=== PATIENT | male | born 1955 | race Caucasian/White ===

== ENCOUNTER 2021-12-19 00:43 | Inpatient (IN) | payer MEDICARE, SELFPAY ==
--- NOTE | 2021-12-18 18:12 | PCM.HOSP.N ---
Hospitalist Note HOSPITALIST TRANSFER FROM [facility] TO [facility] SUMMARY FOR INCOMING PHYSICIAN HANDOFF: The patient is a 66 y/o M w/ PMHx: Anxiety and Depression, Chronic CHF, CKD stage III unclear subtype, Obesity, Hx VTEs most recently noted RLE DVT 2016 (Distal GSV thrombosis on L soleal vein DVT R) on chronic anticoagulation with additionally Hx acute RLE ischemic limb secondary to acute arterial occlusion, Tobacco use, COPD, Hx Adenocarcinoma of the Lung s/p radiation, HTN, HLD, Diabetes mellitus type II, CAD s/p CABG x 3 10/2016 and PCI reportedly 2013, 03/01/20 and again recently 08/20/21 severe coronary disease predominantly involving left main, LAD and circumflex, successful CHRISTINA mid LMCA and IVUS guidance subtotal occlusion mid LAD after takeoff of D1, chronically occluded ostial LCx in-stent with [id number] collaterals with recommendation for continued aggressive risk factor modification and cardiac rehab, initiation Effient with standing dose 10 mg p.o. daily for at least 12 months and continue aspirin 81 mg p.o. daily, PVD, PAOD s/p prior bilateral iliac artery stenting, RLE revascularization in the infrainguinal segment, multiple left lower extremity interventions including rotational atherectomy for subacute thrombosis, angioplasty and stenting L SFA and popliteal artery, Viabahn stenting L SFA and P1, P2 segments of the popliteal artery along with CHRISTINA tibioperoneal trunk, proximal posterior tibial artery, and balloon angioplasty anterior tibial artery, surgical revascularization includes less than distal popliteal artery bypass with failure of the graft, repeat intervention including angioplasty and Viabahn stenting with last procedure was done in July of 2021 until current presentation with recent evaluation per his Vascular Team with admission at [facility] w/ initial surgery evaluation on 12/16/21 with onset within the last ~ 1 week severe recurrent BL LE pain prompting evaluation w/ angiographically premature failure of extensive revascularization of the left lower extremity with attempted intervention with noted rotarex device usage to make multiple runs down the left leg and into the popliteal segment with no angiographic evidence of improvement, balloon angioplasty performed along the entire length of the superficial femoral artery and popliteal artery and re-stented the tibioperoneal trunk which had a fractured stent and proximal posterior tibial artery using a 3 mm x 38 mm Xience Skypoint drug-eluting stent and then a 3 mm x 23 mm Xience Skypoint drug-eluting stent in tandem w/ intra-arterial tPA into the posterior tibial artery however reassessment of SFA segment which had been previously opened with a balloon was now occluded prompting peripheral EKOS catheter along the length of the SFA and popliteal with initiation of IV TPA was started at 0.5 mg an hour and heparin at a total of 500 units an hour through the sheath. Patient was then taken back to the OR on 12/18/21 with continued LSFA occlusion evidence with catheter in the popliteal artery artery, TPT, and PT artery reveal patent vessels with residual clot in the SFA with severe small vessel disease with no flow into the foot despite a patent vessel felt likely indicates stagnation of blood due to irreversibly damaged microvasculature due to chronic recurrent ischemia and his vascular disease. At that time amputation was advised and patient specifically requested transition of his care to Dr. Reyes his longstanding vascular surgeon with transfer arranged to [facility]. Dr. Reyes accepted the patient and requested a medical consultation at his arrival of note. He discussed the patient case with his Small Brake Form Operator who noted recent EF appropriate, no concerning findings on recent ECHO, follow-up after recent 08/2021 cardiac PCI felt appropriate and patient per his standpoint cleared for the OR. Additionally, Dr. Reyes discussed case with [facility] Anesthesia team who is aware of patient history and amenable to his amputation at [facility]. Most recent comparison labs prior included 08/21/21 BMP w/ BUN/Cr 18/1.45, CBC w/ WBC 10.3, Hgb 10.2, Plts 410 with MCV 73.3. Patient of note also has chronic non-healing fasciotomy wounds. 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 Patient maintained on 5L NC and heparin drip continued. Medications confirmed with and placed in system and medical history reviewed and updated in system in preparation for patient arrival. Per Light Industrial Supervisor patient likely EMS transport start out from [place] past [address] Reyes notes intention to place in the PCU as admitting physician, consultation with medical service, plan to continue FARMWORKER FIELD CROP, heparin drip and possible OR Wednesday once anticoagulation timeline appropriate passed. Amenable given recent PCI to continued dual antiplt therapies.
[2021-12-19] VITALS (26 sets, daily range): BP systolic 91–132; BP diastolic 37–78; PULSE 96–110; RESP 16–27; TEMP 36.6–37.5; O2SAT 89–97; BMI 35.0; BMI 35.2
--- NOTE | 2021-12-19 01:33 | CON.PCM.HO_ITS ---
Assessment & Plan Assessment/Plan (1) PAOD (peripheral arterial occlusive disease): PLAN: Plan This 66-year-old who is directly admitted on PCU floor from [facility] for proposed left BKA surgery. 1. Left peripheral arterial occlusive disease with nonhealing left leg ulcer with recent acute left lower extremity ischemic limb with rest claudication pain: Patient had multiple arteriogram and failed attempt of angioplasty. Last angiogram of 12/18/2021 shows residual clot in SFA with severe small vessel disease with no flow into the foot despite a patent vessel of popliteal artery, tibioperoneal trunk and RESIDENT INTERN. Additional revascularization attempt futile. Prior to that patient had procedure on 12/16/2021. Proposed surgery of left BKA probably 12/19/2021. Keep patient NPO. Heparin drip is discontinued at [facility]. Resume heparin drip. Continue aspirin. Pain control. On cilostazol and prasugrel 2. Coronary artery disease status post triple-vessel CABG in October 2016 and multiple PCI: Most recent cardiac cath in August 2021 revealed severe coronary artery disease predominantly involving left main, LAD, circumflex and successful CHRISTINA mid LMCA. IVUS revealed subtotal occlusion mid LAD after takeoff of D1. Chronically occluded ostial left circumflex in the stent with [id number] collaterals. Aggressive medical management recommended. 3. Chronic heart failure, unclear type most probably chronic HFpEF : Patient does not have echo done here. He has cat and dog bather in [place] and as per cat and dog bather patient has appropriate EF and diastolic function. We will try to get echo report from [facility]. 4. CKD stage IIIa: His baseline creatinine runs around 1.4-1.7, 1.45 on 08/21/2021. Most recent lab of 12/18/2021 shows creatinine 1.24, BUN 15. 5. COPD with history of adenocarcinoma of lung, bilateral lower lobes: DuoNeb every 6 hourly. Incentive spirometry. 6. Diabetes mellitus type 2 with chronic peripheral diabetic neuropathy: Accu- Cheks before meals and at bedtime and cover with Humalog sliding scale. On 1800 ADA diet. 7. Hypertension: Blood pressure in normal range. Continue metoprolol with holding parameter. 8. Dyslipidemia: Patient on atorvastatin and fenofibrate, alirocumab and Vascepa. 9. Other multiple comorbidities include anxiety, depression, former tobacco use, GERD and obesity grade 3: Patient quit smoking in 2010. BMI 35.1 kg/m?. Weight loss and lifestyle changes recommended. Continue PPI. Patient on Well butrin Total time of the visit including total time spent in counseling or coordination of care, (more than 50% of the total time, spent in obtaining medical information from nurses and other ancillary care providers,explaining to the patient about labs, imaging, diagnosis and management of active complex medical conditions), review of medical record, review of labs and imaging is 45 minutes. Living will/advanced directive/end of life care: Patient does have living will or advanced directive. His is designated power of ip technology transactions attorney for health. After discussion of benefits/risks procedures involved with full code, DNR CC arrest and DNR CC, the patient opted for full code. Patient does want artificial life support including intubation, tube feed, ventilator and/chest compression, central venous catheter, vasopressor and DC shock if needed Total time spent in drdv-dp-dpty encounter in discussion of advanced directive 16 minutes. HPI Consult Data Date of Consult: 12/19/21 PCP / Referring MD: Dr Jhonathan Reyes Attending Care Provider: Correction: Attending Provider is Dr. Jhonathan Reyes HPI Narrative Reason for Consultation: Medical management of multiple comorbidities including CHF, DVT, PAD HPI Narrative: AMADOR NAVARRETE, is a 66 M who is directly admitted on PCU floor from [facility] ED for proposed left BKA. Patient is being admitted under Dr. Reyes. The patient had extensive history of cardiovascular disease including CHF, multiple DVT, most recent RLE DVT 2016, RLE ischemic limb secondary to arterial occlusion, COPD, adenocarcinoma of lung s/p radiation, hypertension, dyslipidemia, diabetes mellitus type 2, coronary artery status post CABG in 2017 with multiple PCI and stents. Patient also had left LE peripheral arterial bypass surgery Patient has nonhealing ulcer over left leg lateral side about 3 cm with necrotic bed. Patient was most recently taken to the OR on 12/18/2021 with continued left SFA occlusion, catheter and popliteal artery, tibioperoneal trunk, RESIDENT INTERN reveals patent vessels. Vascular clot in SFA. Severe small vessel disease with no flow into the foot despite a patent vessel, and poor inflow. Overall impression was stagnation of blood due to irreversibly damaged microvasculature due to chronic recurrent ischemia. Thereafter decision was made for right below-knee amputation which patient understands. The patient does not have chest pain, pressure or tightness. He has mild chronic shortness of breath which is normal for him. Denies dizziness, lightheadedness diaphoresis or syncope. Patient is not on home oxygen but currently on 5 L of oxygen. Patient is not having labored breathing. Lab work done in [facility] reviewed. Last blood work from 12/18 reviewed. CBC normal limit, H&H 12.1/37.3%. Platelet count 1 58,000. WBC normal. BMP except glucose 150, BUN/creatinine 15/1.24, Chloride 109. Heparin drip was stopped and they are in [facility]. [facility] Medical History (Updated 12/19/21 @ 01:[address] Hector Prasad MD) Anxiety and depression CAD (coronary artery disease) CKD (chronic kidney disease), stage III COPD (chronic obstructive pulmonary disease) Diabetes mellitus, type 2 Former tobacco use GERD (gastroesophageal reflux disease) History of adenocarcinoma of lung History of venous thromboembolism Obesity PAOD (peripheral arterial occlusive disease) PVD (peripheral vascular disease) Home Medications alirocumab 75 mg/mL subcutaneous syringe 75 mg subcut UD Check with primary doctor 12/18/21 [History Last Taken Unknown] atorvastatin 80 mg tablet 80 mg PO QHS Check with primary doctor 12/18/21 [History Last Taken Unknown] bupropion HCl 150 mg tablet,12 hr sustained-release 150 mg PO BID Check with primary doctor 12/18/21 [History Last Taken Unknown] cilostazol 100 mg tablet 100 mg PO BID Check with primary doctor 12/18/21 [History Last Taken Unknown] dabigatran etexilate 150 mg capsule (Pradaxa) 150 mg PO BID Check with primary doctor 12/18/21 [History Last Taken Unknown] empagliflozin 25 mg tablet (Jardiance) 25 mg PO DAILY Check with primary doctor 12/18/21 [History Last Taken Unknown] fenofibrate 160 mg tablet 160 mg PO DAILY Check with primary doctor 12/18/21 [History Last Taken Unknown] icosapent ethyl 1 gram capsule (Vascepa) 2 g PO BID Check with primary doctor 12/18/21 [History Last Taken Unknown] lisinopril 2.5 mg tablet 2.5 mg PO DAILY Check with primary doctor 12/18/21 [History Last Taken Unknown] metformin 500 mg tablet 500 mg PO BID Check with primary doctor 12/18/21 [History Last Taken Unknown] metoprolol tartrate 25 mg tablet 25 mg PO BID Check with primary doctor 12/18/21 [History Last Taken Unknown] pantoprazole 40 mg tablet,delayed release 40 mg PO DAILY Check with primary doctor 12/18/21 [History Last Taken Unknown] prasugrel 10 mg tablet 10 mg PO DAILY Check with primary doctor 12/18/21 [History Last Taken Unknown] Allergy/AdvReac Type Severity Reaction Status Date / Time menthol AdvReac Rash Verified 12/19/21 01:10 Family History Father Heart disease Hypertension CVA (cerebral vascular accident) Myocardial infarction Mother Cancer Possibly stomach cancer. Diabetes Surgical History H/O peripheral artery bypass History of coronary artery bypass graft x 3 History of fasciotomy Hx of coronary angioplasty S/P peripheral artery angioplasty with stent placement Social History household members: spouse Smoking Status: Former smoker how long ago did patient quit smoking: Hx 0.3 ppd starting 1969, quit 05/05/21. alcohol intake: current alcohol intake frequency: holidays/special occasions only substance use type: does not use ROS ROS Narrative Constitutional: Reports fatigue and weakness, no fever HEENT: Reports systems reviewed and no addt'l complaints, except as documented Respiratory/Chest: Denies chest pain, shortness of breath on exertion Gastrointestinal: Denies coffee ground emesis, hematemesis or vomiting Genitourinary: Denies burning urination or new urinary tract symptoms Musculoskeletal: Reports pain over left foot mainly lateral region., Chronic pain. Neurologic: Denies seizure-like activity, decreased sensation over left foot. skin: Chronic nonhealing ulcer over left lateral leg, present on admission Endocrinology: Diabetes mellitus, type II. Reports systems reviewed and no addt'l complaints, except as documented Hematologic/Lymphatic: Reports systems reviewed and no addt'l complaints, except as documented Psychiatric: Flat affect. Rest 14 ROS are negative except as mentioned in HPI Physical Exam Narrative General: Alert, Oriented x3, Cooperative, looks short of breath. HEENT: Atraumatic, PERRLA, EOMI, Normocephalic Oral: No Gingival or Mucosal Lesions/ Ulcerations Neck: Supple, No JVD, Negative Carotid Bruits Lungs: Air entry diminished in bilateral lung bases. No crepitation/rhonchi. On 5 L of oxygen. No dyspnea at rest. Cardiovascular: Sinus rhythm, on campus monitor. Regular rhythm, Normal S1, Normal S2, systolic murmur LLSB. CABG scar Scar over the left below-knee probably open graft surgery of LLE. Abdomen: Bowel Sounds Present, Soft, Non Tender, Non-Distended : No renal angle tenderness. No suprapubic tenderness. Extremities: No edema, Capillary Refill Less than 3 Seconds Skin: Open ulcer with necrotic floor. 8 x 2.5 cm. Dusky color of left foot especially left lateral region. Musculoskeletal: Mild tenderness of left lateral foot. ROM restricted at left knee and left foot. Neurological: Cranial nerves II-XII grossly intact, decreased sensation over left foot and left one third of leg. Psych/Mental Status: Flat affect. Charges/Coding Visit Charges Office Visits / Consults: 19866 IP Consult L4 Procedures Hospitalists Procedures: 46205 Advncd Care Plan 30 Min
--- NOTE | 2021-12-19 01:45 | EKG12_ITS ---
Test Reason : PRE-OP Blood Pressure : / mmHG Vent. Rate : 094 BPM Atrial Rate : 094 BPM P-R Int : 142 ms QRS Dur : 094 ms QT Int : 356 ms P-R-T Axes : 054 036 020 degrees QTc Int : 445 ms Normal sinus rhythm Low voltage QRS (Limb Leads) Confirmed by ANKIT LAWSON, SURESH ([id number]), editorial director YANELIS ZEPEDA ([id number]) on 12/20/2021 7:31:44 AM Referred By: Confirmed By:SURESH PHAM MD
--- NOTE | 2021-12-19 01:45 | RAD_ITS ---
EXAM: XR CHEST, 1 VIEW CLINICAL INDICATION: COPD, HYPOXIA TECHNIQUE: Frontal view of the chest. This report was created using [employer] report generation technology. COMPARISON: None. FINDINGS: LUNGS AND PLEURAL SPACES: The lungs are not hyperinflated. Bands of discoid atelectasis or scarring noted within the left mid to lower lung. No pneumonia. No interstitial or alveolar pulmonary edema. No pneumothorax. No effusion. HEART: Heart size and pulmonary vasculature are within normal limits. MEDIASTINUM: Thoracic aorta is elongated. Previous median sternotomy. BONES/JOINTS: Pleural thickening and possible old rib fractures along the left mid lung laterally. No acute osseous abnormality. SOFT TISSUES: Unremarkable. UPPER ABDOMEN: There is slight asymmetric eventration of the left hemidiaphragm laterally. RAD/Chest 1 View (Portable) IMPRESSION: Previous median sternotomy. Discoid atelectasis or scarring within the left mid to lower lung. No pneumonia or pulmonary edema. Electronically Signed: Bertin Bess MD at 3:06 EDT ,
[2021-12-19] MEDS: 0.9% Normal Saline 1,000 ML 100 ML IV ×3 (03:08→22:00)
[2021-12-19] MEDS: HEPARIN/D5w 25,000 UNITS 25,000 UNITS/250 ML IV.SOLN. 14 UNITS CONT INF (03:10)
[2021-12-19] MEDS: HYDROmorphone 1 MG/ML Syringe IV ×2 (04:26→07:58)
[2021-12-19] MEDS: 0.9% Saline Lock 10 ML Syringe IV (04:26)
[2021-12-19 05:35] LABS: M R Staph aureus DNA By PCR Negative (Negative); Probe Check PASS; Specimen Processing Control PASS
--- NOTE | 2021-12-19 06:41 | NURSING ---
All documentation completed by Sanchez HARPER reviewed by this RN
[2021-12-19 06:51] LABS: Absolute Neutrophil Count 6.1 X10^3/uL (2.0-7.7); Basophil# 0.01 X10^3/uL; Basophil% 0.1 % (0-1); Eosinophil# 0.17 X10^3/uL; Eosinophils% 2.1 % (0-5); Lymphocyte % 12.3 % (19-41); Mean Corp Hgb Conc 30.6 g/dL (32-36); Mean Corpuscular Hgb 23.4 pg (27.0-32.0); Mean Corpuscular Volume 76.4 fL (80-94); Mean Platelet Vol. 9.8 fl (6.2-12.0); Monocyte% 9.9 % (0-10); NRBC Flagged by Analyzer 0 % (0-5); Neutrophil # 6.09 X10^3/uL (2.7-7.7); Neutrophil % 75.2 % (47-70); Platelet Count 163 K/mm3 (150-450); RBC Distribution Width CV 19.1 % (11.6-14.6); RBC Distribution Width SD 52.4 fl (35.1-43.9); Red Blood Count 4.71 M/mm3 (4.6-6.2); White Blood Count 8.1 K/mm3 (4.4-11.0)
[2021-12-19 06:57] LABS: International Normalized Ratio 1.2; Prothrombin Time (Protime)PT. 14.7 SECONDS (11.7-14.9)
[2021-12-19 06:58] LABS: Partial Thromboplast Time 52.9 Seconds (24.1-36.2)
[2021-12-19 07:12] LABS: Anion Gap 7 (5-15); BUN 15 mg/dL (7-18); BUN/Creat Ratio 11.5 RATIO (10-20); Calcium,Total 8.6 mg/dL (8.5-10.1); Chloride 104 mmol/L (98-107); EST Glomerular Filtration Rate 59 mL/min (>60); Est Glom Filt Rate - Afr Amer 71 mL/min (>60); Estimated Creatinine Clearance 51.12 ml/min; Glucose 174 mg/dL (74-106); Magnesium 2.3 mg/dL (1.6-2.6); Phosphorus 3.2 mg/dL (2.5-4.9); Potassium 4.3 mmol/L (3.5-5.1); Sodium Level 133 mmol/L (136-145)
[2021-12-19 07:25] LABS: Bedside Glucose 159 mg/dL (74-106)
[2021-12-19 07:35] LABS: Cholesterol 134 mg/dL (200); High Density Lipoprotein 29 mg/dL; Triglycerides 208 mg/dL; Very Low Density Lipoprotein 42 mg/dL (5-40)
[2021-12-19 09:51] LABS: Partial Thromboplast Time 55.6 Seconds (24.1-36.2)
--- NOTE | 2021-12-19 10:05 | CASEMGMT ---
RN RUTH Face to Face with patient for initial transition planning/care coordination assessment. RN CM introduced self and role at [facility]. Patient lying in bed, alert and oriented. Patient willing to participate in assessment and is able to answer all questions appropriately. Care providers, pharmacy, and demographics verified. Patient wishes to discharge home, denies need for home health at this time. Patient states he has no further needs or concerns at this time. CM to follow for discharge planning needs that may arise. PCP: Dr. Siegel in [place] on [address] Specialists: brittany Reyes Preferred Pharmacy: [facility] in [place] Insurance: [facility] [place] Prescription Benefit: yes Living Will/HPOA: yes, Rosanna Camarena LNOK: Living Arrangements: Patient lives in a raised ranch with stair lift with enter the home. Patient states he is independent at home. Transportation: self, DME/HHC: Patient has shower chair, raised toilet, cane, walker, wheelchair, grab bars, nebulizer, pulse ox, and bed rails at home. Patient has had [facility] in the past. Patient's assists with dressing changes. Disposition Plan: Patient to discharge home with family support and follow-up plans in place. Ashley JOHNSON, RN, CM
--- NOTE | 2021-12-19 10:36 | PN.HOSP_ITS ---
Subjective Subjective Patient seen and examined. He had no active complaints and had an uneventful night. Review of systems otherwise negative. Objective Data Objective Data Vital Signs: Vital Signs Temp Pulse Resp BP Pulse Ox O2 Del Method O2 Flow Rate 99.5 F H 101 H 20 H 114/78 95 Nasal Cannula 5 12/19/21 06:47 12/19/21 07:05 12/19/21 06:47 12/19/21 06:47 12/19/21 06:47 12/19/21 07:46 12/19/21 07:46 Oxygen Flow Rate (L/min) 5 Oxygen Delivery Method Nasal Cannula Weight: 223 lb 15.834 oz Body Mass Index (BMI) 35.2 Intake & Output: Intake and Output for Last 24 Hours 12/17/21 12/18/21 12/19/21 23:59 23:59 23:59 Output Total 275 / 275 Balance -275 / -275 Lab / Micro Data Result Diagrams: 12/19/21 05:20 12/19/21 05:20 Labs: Laboratory Results - last 24 hr 12/18/21 05:20: PT 14.7, INR 1.2, APTT 52.9 H 12/19/21 01:36: MRSA (PCR) Negative 12/19/21 05:20: WBC 8.1, RBC 4.71, Hgb 11.0 L, Hct 36.0 L, MCV 76.4 L, MCH 23.4 L, MCHC 30.6 L, RDW Std Deviation 52.4 H, RDW Coeff of Amaris 19.1 H, Plt Count 163, MPV 9.8, Immature Gran % (Auto) 0.400, Neut % (Auto) 75.2 H, Lymph % (Auto) 12.3 L, Brooks % (Auto) 9.9, Eos % (Auto) 2.1, Baso % (Auto) 0.1, Absolute Neuts (auto) 6.1, Absolute Lymphs (auto) 1.00, Nucleated RBC % 0 12/19/21 05:20: Sodium 133 L, Potassium 4.3, Chloride 104, Carbon Dioxide 22.0, Anion Gap 7, BUN 15, Creatinine 1.30, Estim Creat Clear Calc 51.12, Est GFR (MDRD) Af Amer 71, Est GFR (MDRD) Non-Af 59 L, BUN/Creatinine Ratio 11.5, Glu cose 174 H, Calcium 8.6, Phosphorus 3.2, Magnesium 2.3 12/19/21 05:20: Triglycerides 208 H, Cholesterol 134, LDL Cholesterol 63, VLDL Cholesterol 42 H, HDL Cholesterol 29 L 12/19/21 06:51: POC Glucose 159 H 12/19/21 09:20: APTT 55.6 H Radiography Diagnostic Testing: Radiology Impression Chest X-Ray 12/19/21 01:45 IMPRESSION: Previous median sternotomy. Discoid atelectasis or scarring within the left mid to lower lung. No pneumonia or pulmonary edema. Electronically Signed: Bertin Bess MD at 3:06 EDT , Physical Exam Const alert, oriented x3 and no apparent distress HEENT head/scalp atraumatic, moist oral mucous membranes and oropharynx normal Head and Scalp: normocephalic Mouth: oral and palatal mucosa normal Eyes PERRL and EOMs intact bilaterally Neck no lymphadenopathy and supple Resp Resp Narrative: mildly diminished breath sounds bibasally, no wheezes or crackles. on 5L of oxygen by nasal canula, usually wears 2L Cardio regular rate, regular rhythm, S1 normal heart sound, S2 normal heart sound and no murmurs GI normal to inspection, nondistended, normoactive bowel sounds, soft to palpation, non-tender and non-distended Extremity Extremity Narrative: LLE has intact dressing over ulcer, with diminished pulses and leg cool to touch Neuro oriented x3, CN's II-XII intact bilaterally, moves all extremities and no focal motor deficits Sensorium / Orientation: awake and alert Speech: speech normal Motor Exam: strength 5/5 throughout Psych affect normal Assessment & Plan Assessment/Plan (1) PAOD (peripheral arterial occlusive disease): PLAN: Plan #Peripheral artery disease of hte LLE with a nonhealing LLE ulcer * has had multiple arteriograms and failed angioplasty * J plasty done on 12/18/2021 showed residual clot in the SFA with severe small vessel disease with no flow into the foot despite a patent popliteal artery, tibioperoneal trunk and 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 Attempted revascularization was futile. * Was admitted to the service of vascular surgery for left BKA. * On heparin drip as well as aspirin, prasugrel and cilostazol. * #CAD s/p CABG and PCI * On aspirin * #Chronic heart failure preserved ejection fraction: Not in exacerbation. 2D echo done at [facility] requested #CKD stage IIIa: Creatinine at baseline. #History of lung cancer: Stable. Breathing treatments bronchodilators #COPD: Not in exacerbation. Breathing treatments with bronchodilators #Type 2 diabetes mellitus with peripheral neuropathy: * Insulin sliding scale. Accu-Cheks ACH S. * on Jardiance and metformin #Hypertension: On metoprolol and lisinopril #Hyperlipidemia: On atorvastatin, Vascepa and fenofibrate as well as alirocumab #CHRonic respiratory failure due to COPD and heart failure * says he usually wears 2L of oxygen at home. now on 5L, though he is not visibly short of breath * titrate oxygen and wean down to baseline 2L of oxygen as tolerated. * breathing treatment with bronchodilators * DVT prophylaxis: on heparin drip Charges/Coding Visit Charges Inpatient E&M: 96144 Subs Hosp L3
[2021-12-19] MEDS: HYDROmorphone PCA 0.2 MG/ML 100 ML BAG 20 MG IV (11:46)
[2021-12-19] MEDS: Lisinopril 2.5 MG Tablet PO (12:09)
[2021-12-19] MEDS: Cilostazol 50 MG Tablet 100 MG PO ×2 (12:09→21:00)
[2021-12-19] MEDS: Pantoprazole Sodium 40 MG Tablet PO (12:09)
[2021-12-19] MEDS: buPROPion (SR) 150 MG Tablet.SA PO ×2 (12:09→21:00)
[2021-12-19] MEDS: Fenofibrate 145 MG Tablet PO (12:10)
[2021-12-19] MEDS: Metoprolol Tartrate 25 MG Tablet PO ×2 (12:10→21:00)
[2021-12-19] MEDS: Insulin Lispro 100 UNIT/ML INSULN.PEN SC ×2 (12:31→15:55)
[2021-12-19] MEDS: CLARIFY ORDER 1 EACH NOTE (12:33)
[2021-12-19 13:10] LABS: Bedside Glucose 170 mg/dL (74-106)
--- NOTE | 2021-12-19 14:43 | HP.PCM_ITS ---
[facility] - General General Date of Admission: 12/19/21 HPI Narrative AMADOR NAVARRETE, is a 66 M who presents for recurrent LLE acute ischemia. Previously underwent multiple salvage efforts to revascularize. Most recent effort in May 2021 failed and recurrent rest pain developed about 5 days ago. Repeat efforts in [place] to revascularize were unsuccessful. Given our long standing relationship he asked to be transferred here for amputation. He currently has rest pain modestly controlled. SPACE PLANNER was not initiated overnight due to lack of clarity with orders. He understands the situation and is aware amputation is only option. [facility] Medical History Anxiety and depression CAD (coronary artery disease) CKD (chronic kidney disease), stage III COPD (chronic obstructive pulmonary disease) Diabetes mellitus, type 2 Former tobacco use GERD (gastroesophageal reflux disease) History of adenocarcinoma of lung History of venous thromboembolism Obesity PAOD (peripheral arterial occlusive disease) PVD (peripheral vascular disease) Home Medications atorvastatin 80 mg tablet 80 mg PO QHS Check with primary doctor 12/18/21 [History Last Taken Unknown] bupropion HCl 150 mg tablet,12 hr sustained-release 150 mg PO BID Check with primary doctor 12/18/21 [History Last Taken Unknown] cilostazol 100 mg tablet 100 mg PO BID Check with primary doctor 12/18/21 [History Last Taken Unknown] dabigatran etexilate 150 mg capsule (Pradaxa) 150 mg PO BID Check with primary doctor 12/18/21 [History Last Taken Unknown] empagliflozin 25 mg tablet (Jardiance) 25 mg PO DAILY Check with primary doctor 12/18/21 [History Last Taken Unknown] fenofibrate 160 mg tablet 160 mg PO DAILY Check with primary doctor 12/18/21 [History Last Taken Unknown] icosapent ethyl 1 gram capsule (Vascepa) 2 g PO BID Check with primary doctor 12/18/21 [History Last Taken Unknown] lisinopril 2.5 mg tablet 2.5 mg PO DAILY Check with primary doctor 12/18/21 [History Last Taken Unknown] metformin 500 mg tablet 500 mg PO BID Check with primary doctor 12/18/21 [History Last Taken Unknown] metoprolol tartrate 25 mg tablet 25 mg PO BID Check with primary doctor 12/18/21 [History Last Taken Unknown] pantoprazole 40 mg tablet,delayed release 40 mg PO DAILY Check with primary doctor 12/18/21 [History Last Taken Unknown] prasugrel 10 mg tablet 10 mg PO DAILY Check with primary doctor 12/18/21 [History Last Taken Unknown] Allergy/AdvReac Type Severity Reaction Status Date / Time menthol AdvReac Rash Verified 12/19/21 01:10 Family History Father Heart disease Hypertension CVA (cerebral vascular accident) Myocardial infarction Mother Cancer Possibly stomach cancer. Diabetes Surgical History H/O peripheral artery bypass History of coronary artery bypass graft x 3 History of fasciotomy Hx of coronary angioplasty S/P peripheral artery angioplasty with stent placement Social History household members: spouse Smoking Status: Former smoker how long ago did patient quit smoking: Hx 0.3 ppd starting 1969, quit 05/05/21. alcohol intake: current alcohol intake frequency: holidays/special occasions only substance use type: does not use Vital Signs Vital Signs Vital Signs: 12/19/21 00:45 12/19/21 01:40 12/19/21 00:59 Temperature 99.4 F H Temperature Source Oral Pulse Rate 99 102 H Pulse Strength Respiratory Rate 19 H Respiratory Effort Short of Breath Respiratory Depth Normal Respiratory Pattern Tachypnea Blood Pressure 122/74 H Blood Pressure [BP] Blood Pressure Mean 90 Blood Pressure Mean [BP] Blood Pressure Source Monitor Blood Pressure Source [BP] Blood Pressure Position Semi-Fowlers Blood Pressure Position [BP] Blood Pressure Location Right Arm Blood Pressure Location [BP] Pulse Ox 95 Oxygen Delivery Method Nasal Cannula Nasal Cannula Oxygen Flow Rate (L/min) 5 5 12/19/21 03:00 12/19/21 05:57 12/19/21 06:47 Temperature 99.5 F H Temperature Source Oral Pulse Rate 96 99 Pulse Strength Respiratory Rate 20 H Respiratory Effort Respiratory Depth Respiratory Pattern Blood Pressure 114/78 Blood Pressure [BP] Blood Pressure Mean 90 Blood Pressure Mean [BP] Blood Pressure Source Monitor Blood Pressure Source [BP] Blood Pressure Position Semi-Fowlers Blood Pressure Position [BP] Blood Pressure Location Right Arm Blood Pressure Location [BP] Pulse Ox 94 95 Oxygen Delivery Method Nasal Cannula Nasal Cannula Oxygen Flow Rate (L/min) 5 5 12/19/21 07:05 12/19/21 07:46 12/19/21 11:25 Temperature Temperature Source Pulse Rate 101 H Pulse Strength Respiratory Rate Respiratory Effort Respiratory Depth Respiratory Pattern Blood Pressure Blood Pressure [BP] Blood Pressure Mean Blood Pressure Mean [BP] Blood Pressure Source Blood Pressure Source [BP] Blood Pressure Position Blood Pressure Position [BP] Blood Pressure Location Blood Pressure Location [BP] Pulse Ox 92 Oxygen Delivery Method Nasal Cannula Room Air Oxygen Flow Rate (L/min) 5 12/19/21 11:56 12/19/21 12:10 12/19/21 11:00 Temperature Temperature Source Pulse Rate 105 H 106 H Pulse Strength Normal (2+) Respiratory Rate Respiratory Effort Respiratory Depth Respiratory Pattern Blood Pressure 132/72 H Blood Pressure [BP] Blood Pressure Mean Blood Pressure Mean [BP] Blood Pressure Source Blood Pressure Source [BP] Blood Pressure Position Blood Pressure Position [BP] Blood Pressure Location Blood Pressure Location [BP] Pulse Ox Oxygen Delivery Method Oxygen Flow Rate (L/min) 12/19/21 13:16 12/19/21 13:00 12/19/21 13:00 Temperature 98.1 F Temperature Source Temporal Pulse Rate 105 H Pulse Strength Respiratory Rate 18 18 Respiratory Effort Normal Non-Labored Respiratory Depth Normal Respiratory Pattern Normal Blood Pressure Blood Pressure [BP] 115/65 Blood Pressure Mean Blood Pressure Mean [BP] 81 Blood Pressure Source Blood Pressure Source [BP] Monitor Blood Pressure Position Blood Pressure Position [BP] Semi-Fowlers Blood Pressure Location Blood Pressure Location [BP] Right Arm Pulse Ox 92 92 Oxygen Delivery Method Room Air Room Air Room Air Oxygen Flow Rate (L/min) 12/19/21 14:00 12/19/21 14:00 12/19/21 13:45 Temperature 98.1 F 97.9 F Temperature Source Temporal Temporal Pulse Rate 102 H 98 Pulse Strength Respiratory Rate 20 H 20 H 18 Respiratory Effort Respiratory Depth Respiratory Pattern Blood Pressure 112/65 Blood Pressure [BP] 110/67 Blood Pressure Mean 80 Blood Pressure Mean [BP] 81 Blood Pressure Source Monitor Blood Pressure Source [BP] Monitor Blood Pressure Position Semi-Fowlers Blood Pressure Position [BP] Semi-Fowlers Blood Pressure Location Right Arm Blood Pressure Location [BP] Right Arm Pulse Ox 92 92 94 Oxygen Delivery Method Room Air Nasal Cannula Nasal Cannula Oxygen Flow Rate (L/min) 3 3 Weight Weight: 223 lb 15.834 oz Body Mass Index (BMI) 35.2 Physical Exam Const alert, oriented x3 and healthy appearing General Appearance: cooperative and in distress Positive for mild (due to foot pain); Negative for combative or lethargic Orientation / Consciousness: awake Exam Limitations: no limitations HEENT Head and Scalp: normocephalic and atraumatic Eyes EOMs intact bilaterally General Eye: normal appearance of both eyes Neck full ROM, no lymphadenopathy and thyroid normal General: trachea midline Thyroid: thyroid normal Resp normal respiratory effort, no use of accessory muscles and clear to auscultation bilaterally Effort and Inspection: Negative for labored, stridor or audible wheezes Cardio regular rate and regular rhythm Peripheral Pulses: brachial pulses present, radial pulses present and femoral pulses present; Negative for popliteal pulses present, posterior tibial pulses present or dorsalis pedis pulses present Back/Spine Cervical Spine: cervical ROM normal Extremity no clubbing, cyanosis or edema; Negative for full ROM or normal capillary refill Extremity Narrative: left knee mild contracture Skin no rashes or lesions noted Wounds: wounds noted other prior left lateral fasciotomy incision with bland dusky base Neuro oriented x3, CN's II-XII intact bilaterally, No no focal motor deficits and No no sensory deficits noted Neuro Narrative: left foot motor/sensory diminished Psych thought process normal, cooperative, affect normal, speech normal and activity/motor behavior normal Results Lab / Micro Data Result Diagrams: 12/19/21 05:20 12/19/21 05:20 Labs: Laboratory Results - last 24 hr 12/18/21 05:20: PT 14.7, INR 1.2, APTT 52.9 H 12/19/21 01:36: MRSA (PCR) Negative 12/19/21 05:20: WBC 8.1, RBC 4.71, Hgb 11.0 L, Hct 36.0 L, MCV 76.4 L, MCH 23.4 L, MCHC 30.6 L, RDW Std Deviation 52.4 H, RDW Coeff of Amaris 19.1 H, Plt Count 163, MPV 9.8, Immature Gran % (Auto) 0.400, Neut % (Auto) 75.2 H, Lymph % (Auto) 12.3 L, [place] % (Auto) 9.9, Eos % (Auto) 2.1, Baso % (Auto) 0.1, Absolute Neuts (auto) 6.1, Absolute Lymphs (auto) 1.00, Nucleated RBC % 0 12/19/21 05:20: Sodium 133 L, Potassium 4.3, Chloride 104, Carbon Dioxide 22.0, Anion Gap 7, BUN 15, Creatinine 1.30, Estim Creat Clear Calc 51.12, Est GFR (MDRD) Af Amer 71, Est GFR (MDRD) Non-Af 59 L, BUN/Creatinine Ratio 11.5, Glucose 174 H, Calcium 8.6, Phosphorus 3.2, Magnesium 2.3 12/19/21 05:20: Triglycerides 208 H, Cholesterol 134, LDL Cholesterol 63, VLDL Cholesterol 42 H, HDL Cholesterol 29 L 12/19/21 06:51: POC Glucose 159 H 12/19/21 09:20: APTT 55.6 H 12/19/21 12:27: POC Glucose 170 H Radiology Impression Chest X-Ray 12/19/21 01:45 IMPRESSION: Previous median sternotomy. Discoid atelectasis or scarring within the left mid to lower lung. No pneumonia or pulmonary edema. Electronically Signed: Bertin Bess MD at 3:06 EDT , Assessment & Plan Assessment/Plan (1) PAOD (peripheral arterial occlusive disease): PLAN: -recurrent acute ischemia after multiple efforts to reestablish perfusion -no remaining options for limb salvage -d/w peripheral interventionalist from [place]; were unable to send images but there is some filling into popliteal and PT from collaterals -given diabetic status, uncertain if BKA would heal, but patient would like to try -if BKA incisions shows poor bleeding and muscle/tissue quality would convert to AKA or if BKA fails to heal would need re-amputation above knee -SPACE PLANNER -cont low dose heparin for now to attempt and maintain collaterals ; back to Pradaxa eventually post op -tentative for OR Wednesday -prior left main PCI, on Effient; will not stop for surgery, will give platelets intra and post op Charges/Coding Visit Charges Inpatient E&M: 41214 Init Hosp L3
[2021-12-19 15:56] LABS: Partial Thromboplast Time 48.4 Seconds (24.1-36.2)
[2021-12-19 16:21] LABS: Bedside Glucose 161 mg/dL (74-106)
[2021-12-19] MEDS: HEPARIN/D5w 25,000 UNITS 25,000 UNITS/250 ML IV.SOLN. 15 UNITS CONT INF (20:23)
[2021-12-19] MEDS: Senna/Docusate Sodium 1 Tablet 2 TABLET PO (21:00)
[2021-12-19] MEDS: Atorvastatin Calcium 80 MG Tablet PO (21:00)
[2021-12-19 21:45] LABS: Bedside Glucose 134 mg/dL (74-106)
[2021-12-19 22:19] LABS: Partial Thromboplast Time 45.7 Seconds (24.1-36.2)
[2021-12-20] VITALS (31 sets, daily range): BP systolic 92–130; BP diastolic 37–112; PULSE 101–118; RESP 17–29; TEMP 37–37.7; O2SAT 89–96
[2021-12-20 04:47] LABS: Partial Thromboplast Time 60.8 Seconds (24.1-36.2)
[2021-12-20] MEDS: Insulin Lispro 100 UNIT/ML INSULN.PEN SC ×4 (06:33→22:49)
[2021-12-20] MEDS: 0.9% Normal Saline 1,000 ML 100 ML IV ×2 (06:36→16:17)
[2021-12-20 07:35] LABS: Bedside Glucose 172 mg/dL (74-106)
--- NOTE | 2021-12-20 09:00 | PN.SURG_ITS ---
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 Discussed plan for Wednesday; will make below-knee incision and assess skin/muscle viability. If adequate then proceed with BKA, if not then convert to AKA. Objective Data Objective Data Vital Signs: Vital Signs Temp Pulse Resp BP Pulse Ox O2 Del Method O2 Flow Rate 98.9 F 108 H 21 H 103/41 L 94 Nasal Cannula 3 12/20/21 07:00 12/20/21 08:00 12/20/21 08:00 12/20/21 08:00 12/20/21 08:00 12/20/21 08:19 12/20/21 08:19 Oxygen Flow Rate (L/min) 3 Oxygen Delivery Method Nasal Cannula Weight: 223 lb 15.834 oz Body Mass Index (BMI) 35.2 Intake & Output: Intake and Output for Last 24 Hours 12/18/21 12/19/21 12/20/21 23:59 23:59 23:59 Intake Total 2522.59 / 2882.59 1442.13 / 1442.13 Output Total 775 / 775 600 / 600 Balance 1747.59 / 2107.59 842.13 / 842.13 Lab / Micro Data Result Diagrams: 12/19/21 05:20 12/19/21 05:20 Labs: Laboratory Results - last 24 hr 12/19/21 09:20: APTT 55.6 H 12/19/21 12:27: POC Glucose 170 H 12/19/21 15:23: APTT 48.4 H 12/19/21 15:54: POC Glucose 161 H 12/19/21 21:24: POC Glucose 134 H 12/19/21 22:00: APTT 45.7 H 12/20/21 04:23: APTT 60.8 H 12/20/21 06:32: POC Glucose 172 H Physical Exam Const alert, oriented x3, no apparent distress and healthy appearing General Appearance: cooperative; Negative for combative or lethargic Orientation / Consciousness: awake Exam Limitations: no limitations HEENT Head and Scalp: normocephalic and atraumatic Eyes EOMs intact bilaterally General Eye: normal appearance of both eyes Neck full ROM General: trachea midline Resp normal respiratory effort and no use of accessory muscles Effort and Inspection: Negative for labored, stridor or audible wheezes Cardio regular rate and regular rhythm Cardio Narrative: Doppler left popliteal, no DP/PT doppler signals Back/Spine Cervical Spine: cervical ROM normal Extremity full ROM and no clubbing, cyanosis or edema Extremity Narrative: Lateral fasciotomy wound with dusky, bland base, minimal necrosis at periphery Neuro oriented x3, CN's II-XII intact bilaterally, no focal motor deficits and no sensory deficits noted Psych thought process normal, cooperative, affect normal, speech normal and activi ty/motor behavior normal Assessment & Plan Assessment/Plan (1) PAOD (peripheral arterial occlusive disease): PLAN: -cont heparin -daily dressing change to fasciotomy -plan BKA Wednesday, possible AKA -will order platelets on hold to transfuse in OR -cont Effient through surgery, will hold heparin AM Wednesday Charges/Coding Visit Charges Inpatient E&M: 13570 Subs Hosp L2
[2021-12-20] MEDS: Metoprolol Tartrate 25 MG Tablet PO ×2 (09:19→22:49)
[2021-12-20] MEDS: Cilostazol 50 MG Tablet 100 MG PO ×2 (09:19→22:49)
[2021-12-20] MEDS: Fenofibrate 145 MG Tablet PO (09:20)
[2021-12-20] MEDS: Lisinopril 2.5 MG Tablet PO (09:20)
[2021-12-20] MEDS: Pantoprazole Sodium 40 MG Tablet PO (09:20)
[2021-12-20] MEDS: buPROPion (SR) 150 MG Tablet.SA PO ×2 (09:20→22:48)
[2021-12-20 10:50] LABS: Partial Thromboplast Time 57.5 Seconds (24.1-36.2)
[2021-12-20 11:55] LABS: Bedside Glucose 152 mg/dL (74-106)
--- NOTE | 2021-12-20 12:22 | PN.HOSP_ITS ---
Subjective Subjective Patient seen and examined. He had no active complaints today and had an uneventful night. Review of systems is otherwise negative. He has been mildly tachycardic, and HR was 109 this morning. Objective Data Objective Data Vital Signs: Vital Signs Temp Pulse Resp BP Pulse Ox O2 Del Method O2 Flow Rate 99.0 F 109 H 23 H 101/70 93 Nasal Cannula 3 12/20/21 09:00 12/20/21 12:00 12/20/21 11:33 12/20/21 12:00 12/20/21 11:33 12/20/21 11:33 12/20/21 11:33 Oxygen Flow Rate (L/min) 3 Oxygen Delivery Method Nasal Cannula Weight: 223 lb 15.834 oz Body Mass Index (BMI) 35.2 Intake & Output: Intake and Output for Last 24 Hours 12/18/21 12/19/21 12/20/21 23:59 23:59 23:59 Intake Total 2522.59 / 2882.59 1682.13 / 1682.13 Output Total 775 / 775 1325 / 1325 Balance 1747.59 / 2107.59 357.13 / 357.13 Lab / Micro Data Result Diagrams: 12/19/21 05:20 12/19/21 05:20 Labs: Laboratory Results - last 24 hr 12/19/21 12:27: POC Glucose 170 H 12/19/21 15:23: APTT 48.4 H 12/19/21 15:54: POC Glucose 161 H 12/19/21 21:24: POC Glucose 134 H 12/19/21 22:00: APTT 45.7 H 12/20/21 04:23: APTT 60.8 H 12/20/21 06:32: POC Glucose 172 H 12/20/21 10:25: APTT 57.5 H 12/20/21 11:29: POC Glucose 152 H Physical Exam Const alert, oriented x3 and no apparent distress HEENT head/scalp atraumatic, moist oral mucous membranes and oropharynx normal Head and Scalp: normocephalic Mouth: oral and palatal mucosa normal Eyes PERRL and EOMs intact bilaterally Neck no lymphadenopathy and supple Resp normal respiratory effort and no retractions Resp Narrative: mildly diminished breath sounds bibasally, no wheezes or crackles. on 3L of oxygen by nasal canula Cardio regular rate, regular rhythm, S1 normal heart sound, S2 normal heart sound and no murmurs GI normal to inspection, nondistended, normoactive bowel sounds, soft to palpation, non-tender and non-distended Extremity Extremity Narrative: LLE has intact dressing over ulcer, with diminished pulses and leg cool to touch Neuro oriented x3, CN's II-XII intact bilaterally, moves all extremities and no focal motor deficits Sensorium / Orientation: awake and alert Speech: speech normal Motor Exam: strength 5/5 throughout Psych affect normal Assessment & Plan Assessment/Plan (1) PAOD (peripheral arterial occlusive disease): PLAN: Plan #Peripheral artery disease of hte LLE with a nonhealing LLE ulcer * has had multiple arteriograms and failed angioplasty * J plasty done on 12/18/2021 showed residual clot in the SFA with severe small vessel disease with no flow into the foot despite a patent popliteal artery, tibioperoneal trunk and MECHANICAL MAINTENANCE. Attempted revascularization was futile. * Was admitted to the service of vascular surgery for left BKA. * On heparin drip as well as aspirin, prasugrel and cilostazol. * for left BKA on Wednesday12/22/2021 * #CAD s/p CABG and PCI * On aspirin * #Chronic heart failure preserved ejection fraction: Not in exacerbation. 2D echo done at [facility] requested #CKD stage IIIa: Creatinine at baseline. #History of lung cancer: Stable. Breathing treatments bronchodilators #COPD: Not in exacerbation. Breathing treatments with bronchodilators #Type 2 diabetes mellitus with peripheral neuropathy: * Insulin sliding scale. Accu-Cheks ACH S. * on Jardiance and metformin #Hypertension: On metoprolol and lisinopril #Hyperlipidemia: On atorvastatin, Vascepa and fenofibrate as well as alirocumab #CHRonic respiratory failure due to COPD and heart failure * on 3L of oxygen today; usually wears 2L of oxygen. * titrate oxygen and wean down to baseline 2L of oxygen as tolerated. * breathing treatment with bronchodilators * DVT prophylaxis: on heparin drip Charges/Coding Visit Charges Inpatient E&M: 14728 Subs Hosp L2
[2021-12-20] MEDS: HEPARIN/D5w 25,000 UNITS 25,000 UNITS/250 ML IV.SOLN. 16 UNITS CONT INF (13:16)
--- NOTE | 2021-12-20 16:00 | CASEMGMT ---
Face to Face with patient for initial transition planning/care coordination assessment. MEREDITH MIRANDA introduced self and role at [facility], voices understanding. Pt sitting up in chair grimacing. Pt's at bedside and states he had just gotten out of bed. Care providers, pharmacy, and demographics verified. PCP: Alison Siegel with [facility] Specialists: Kennedi Reyes (endocrinology), Idris (Cardiology) Preferred Pharmacy: [facility] in [place] Insurance: [facility] Prescription Benefit: Yes LNOK: , Rosanna Living Arrangements: Pt [place] in a [place] with his . Home is equiped with chair lifts on the stairs. Pt is independent with ADLs and assists when needed. Son lives with them also but he is legally blind. Grandson is in and out of the home and is able to assist intermittently. 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 DME: tub/shower chair, cane, lift chair, rails/grab bars, hand held shower, walker, rollator, w/c, home O2/nebulizer concentrator which they own. Pt's states he wears this PRN and usually at 2l/min. Also states this machine is a concentrator but also can work as a nebulizer. SNF/HH: Pt has not had previous SNF stays but has had Home health from [facility] in the past for SN, PT/OT. Plan: Pt plans to return home at discharge. Is open to Home health services if needed. Will continue to monitor pt postoperatively and facilitate discharge needs as identified. Emerald Rice RN CM
[2021-12-20] MEDS: ICOSAPENT ETHYL 1 GM CAPSULE 2 GM PO (16:12)
[2021-12-20 16:36] LABS: Bedside Glucose 177 mg/dL (74-106)
[2021-12-20] MEDS: Senna/Docusate Sodium 1 Tablet 2 TABLET PO (22:49)
[2021-12-20] MEDS: Atorvastatin Calcium 80 MG Tablet PO (22:49)
[2021-12-20 23:15] LABS: Bedside Glucose 163 mg/dL (74-106)
[2021-12-21] VITALS (34 sets, daily range): BP systolic 107–143; BP diastolic 53–106; PULSE 96–129; RESP 17–27; TEMP 36.5–37.4; O2SAT 90–98
[2021-12-21] MEDS: 0.9% Normal Saline 1,000 ML 100 ML IV ×2 (02:27→19:13)
[2021-12-21] MEDS: HEPARIN/D5w 25,000 UNITS 25,000 UNITS/250 ML IV.SOLN. 16 UNITS CONT INF ×2 (05:03→21:03)
[2021-12-21 05:47] LABS: Absolute Lymphocyte Count 1.01 X10^3/uL (0.83-4.51); Basophil# 0.02 X10^3/uL; Basophil% 0.2 % (0-1); Eosinophil# 0.09 X10^3/uL; Hematocrit 31.8 % (40-54); Lymphocyte # 1.01 X10^3/ul (0.83-4.51); Lymphocyte % 11.3 % (19-41); Mean Corp Hgb Conc 31.4 g/dL (32-36); Mean Corpuscular Hgb 23.1 pg (27.0-32.0); Mean Corpuscular Volume 73.6 fL (80-94); Mean Platelet Vol. 8.8 fl (6.2-12.0); Monocyte# 0.81 X10^3/uL; Monocyte% 9.1 % (0-10); NRBC Flagged by Analyzer 0 % (0-5); Neutrophil # 6.95 X10^3/uL (2.7-7.7); Platelet Count 239 K/mm3 (150-450); RBC Distribution Width CV 18.7 % (11.6-14.6); RBC Distribution Width SD 50.2 fl (35.1-43.9); Red Blood Count 4.32 M/mm3 (4.6-6.2); White Blood Count 8.9 K/mm3 (4.4-11.0)
[2021-12-21 06:06] LABS: Anion Gap 8 (5-15); BUN 12 mg/dL (7-18); BUN/Creat Ratio 10.6 RATIO (10-20); Calcium,Total 8.6 mg/dL (8.5-10.1); Chloride 105 mmol/L (98-107); Creatinine, Serum 1.13 mg/dL (0.70-1.30); EST Glomerular Filtration Rate 69 mL/min (>60); Est Glom Filt Rate - Afr Amer 84 mL/min (>60); Estimated Creatinine Clearance 58.81 ml/min; Glucose 158 mg/dL (74-106); Potassium 3.8 mmol/L (3.5-5.1); Sodium Level 134 mmol/L (136-145)
[2021-12-21 06:16] LABS: Partial Thromboplast Time 59.6 Seconds (24.1-36.2)
[2021-12-21] MEDS: Insulin Lispro 100 UNIT/ML INSULN.PEN SC (06:38)
[2021-12-21 07:01] LABS: Bedside Glucose 162 mg/dL (74-106)
--- NOTE | 2021-12-21 08:08 | NURSING ---
Pt self removed IV's. ANIMAL ATTENDANT pump shut off. Attempted to restart IV's unsucessully, another RN attempting to restart IV's at this time.
--- NOTE | 2021-12-21 08:40 | NURSING ---
IV access reestablished, NUTRITION SERVICES ASSISTANT pump and Heparin gtt restarted at this time.
[2021-12-21] MEDS: ICOSAPENT ETHYL 1 GM CAPSULE 2 GM PO ×2 (09:15→16:07)
[2021-12-21] MEDS: buPROPion (SR) 150 MG Tablet.SA PO ×2 (09:16→21:06)
[2021-12-21] MEDS: Lisinopril 2.5 MG Tablet PO (09:16)
[2021-12-21] MEDS: Metoprolol Tartrate 25 MG Tablet PO ×2 (09:16→21:05)
[2021-12-21] MEDS: Cilostazol 50 MG Tablet 100 MG PO ×2 (09:17→21:06)
[2021-12-21] MEDS: Fenofibrate 145 MG Tablet PO (09:18)
[2021-12-21] MEDS: Pantoprazole Sodium 40 MG Tablet PO (09:18)
--- NOTE | 2021-12-21 09:21 | PCM.PN.SRG ---
Subjective Subjective IV inadvertently pulled out this AM, SWIMMING POOL ATTENDANT interrupted and more pain. Trying to get caught up. at bedside. Discussed OR plan, post op timeline. Has ample help at home, and has spent better part of past year with limited mobility from leg. They feel he will do well at home with outpatient therapy. Objective Data Objective Data Vital Signs: Vital Signs Temp Pulse Resp BP Pulse Ox O2 Del Method O2 Flow Rate 99.0 F 119 H 23 H 143/82 H 93 Nasal Cannula 4 12/21/21 06:36 12/21/21 09:16 12/21/21 08:30 12/21/21 09:16 12/21/21 08:30 12/21/21 08:52 12/21/21 08:52 Oxygen Flow Rate (L/min) 4 Oxygen Delivery Method Nasal Cannula Weight: 223 lb 15.834 oz Body Mass Index (BMI) 35.2 Intake & Output: Intake and Output for Last 24 Hours 12/19/21 12/20/21 12/21/21 23:59 23:59 23:59 Intake Total 2522.59 / 2882.59 2887.83 / 2887.83 1250 / 1250 Output Total 775 / 775 2725 / 2725 850 / 850 Balance 1747.59 / 2107.59 162.83 / 162.83 400 / 400 Lab / Micro Data Result Diagrams: 12/21/21 05:25 12/21/21 05:25 Labs: Laboratory Results - last 24 hr 12/20/21 10:25: APTT 57.5 H 12/20/21 11:29: POC Glucose 152 H 12/20/21 16:08: POC Glucose 177 H 12/20/21 22:43: POC Glucose 163 H 12/21/21 05:25: WBC 8.9, RBC 4.32 L, Hgb 10.0 L, Hct 31.8 L, MCV 73.6 L, MCH 23.1 L, MCHC 31.4 L, RDW Std Deviation 50.2 H, RDW Coeff of Amaris 18.7 H, Plt Count 239, MPV 8.8, Immature Gran % (Auto) 0.400, Neut % (Auto) 78.0 H, Lymph % (Auto) 11.3 L, [place] % (Auto) 9.1, Eos % (Auto) 1.0, Baso % (Auto) 0.2, Absolute Neuts (auto) 7.0, Absolute Lymphs (auto) 1.01, Nucleated RBC % 0 12/21/21 05:25: Sodium 134 L, Potassium 3.8, Chloride 105, Carbon Dioxide 21.0, Anion Gap 8, BUN 12, Creatinine 1.13, Estim Creat Clear Calc 58.81, Est GFR (MDRD) Af Amer 84, Est GFR (MDRD) Non-Af 69, BUN/Creatinine Ratio 10.6, Glucose 158 H, Calcium 8.6 12/21/21 05:25: APTT 59.6 H 12/21/21 06:35: POC Glucose 162 H Physical Exam Const alert, oriented x3 and healthy appearing General Appearance: cooperative and in distress Positive for mild (from pain); Negative for combative or lethargic Orientation / Consciousness: awake Exam Limitations: no limitations HEENT Head and Scalp: normocephalic and atraumatic Eyes EOMs intact bilaterally General Eye: normal appearance of both eyes Neck full ROM General: trachea midline Resp normal respiratory effort and no use of accessory muscles Effort and Inspection: Negative for labored, stridor or audible wheezes Cardio regular rate and regular rhythm Back/Spine Cervical Spine: cervical ROM normal Extremity no clubbing, cyanosis or edema Extremity Narrative: improving mild contracture left knee Skin no rashes or lesions noted Wounds: wounds noted other left lateral fasciotomy with bland, dusky bed and no purulence Neuro oriented x3 and CN's II-XII intact bilaterally Psych thought process normal, cooperative, affect normal, speech normal and activity/motor behavior normal Assessment & Plan Assessment/Plan (1) PAOD (peripheral arterial occlusive disease): PLAN: -OR tomorrow for amputation; questions answered -type and cross 2 prbc, will plan to transfuse platelets intraop and have on hold for postop given Effient -add Neurontin, change Tylenol to scheduled, cont pump and blower operator
[2021-12-21] MEDS: Bisacodyl 5 MG Tablet 10 MG PO (10:14)
[2021-12-21] MEDS: Acetaminophen 325 MG Tablet 650 MG PO ×3 (10:15→21:04)
[2021-12-21] MEDS: Gabapentin 300 MG Capsule PO ×2 (11:45→16:09)
[2021-12-21 12:05] LABS: Bedside Glucose 132 mg/dL (74-106)
--- NOTE | 2021-12-21 12:14 | PN.HOSP_ITS ---
Subjective Subjective Patient seen and examined. He accidentally disconnected his pain pump this morning,so he is in quite a lot of pain. He was mildly tachycardic and tachypneic, which patient and his think is due to the severe pain he is in. Pump had been reconnected. Review of systems is otherwise negative. Objective Data Objective Data Vital Signs: Vital Signs Temp Pulse Resp BP Pulse Ox O2 Del Method O2 Flow Rate 99.3 F H 102 H 22 H 130/80 H 92 Nasal Cannula 4 12/21/21 09:30 12/21/21 12:05 12/21/21 12:05 12/21/21 12:05 12/21/21 12:05 12/21/21 12:05 12/21/21 12:05 Oxygen Flow Rate (L/min) 4 Oxygen Delivery Method Nasal Cannula Weight: 223 lb 15.834 oz Body Mass Index (BMI) 35.2 Intake & Output: Intake and Output for Last 24 Hours 12/19/21 12/20/21 12/21/21 23:59 23:59 23:59 Intake Total 2522.59 / 2882.59 2887.83 / 2887.83 1490 / 1490 Output Total 775 / 775 2725 / 2725 1675 / 1675 Balance 1747.59 / 2107.59 162.83 / 162.83 -185 / -185 Lab / Micro Data Result Diagrams: 12/21/21 05:25 12/21/21 05:25 Labs: Laboratory Results - last 24 hr 12/20/21 16:08: POC Glucose 177 H 12/20/21 22:43: POC Glucose 163 H 12/21/21 05:25: WBC 8.9, RBC 4.32 L, Hgb 10.0 L, Hct 31.8 L, MCV 73.6 L, MCH 23.1 L, MCHC 31.4 L, RDW Std Deviation 50.2 H, RDW Coeff of Amaris 18.7 H, Plt Count 239, MPV 8.8, Immature Gran % (Auto) 0.400, Neut % (Auto) 78.0 H, Lymph % (Auto) 11.3 L, [place] % (Auto) 9.1, Eos % (Auto) 1.0, Baso % (Auto) 0.2, Absolute Neuts (auto) 7.0, Absolute Lymphs (auto) 1.01, Nucleated RBC % 0 12/21/21 05:25: Sodium 134 L, Potassium 3.8, Chloride 105, Carbon Dioxide 21.0, Anion Gap 8, BUN 12, Creatinine 1.13, Estim Creat Clear Calc 58.81, Est GFR (MDRD) Af Amer 84, Est GFR (MDRD) Non-Af 69, BUN/Creatinine Ratio 10.6, Glucose 158 H, Calcium 8.6 12/21/21 05:25: APTT 59.6 H 12/21/21 06:35: POC Glucose 162 H 12/21/21 09:35: Blood Type A POSITIVE, Antibody Screen NEGATIVE, Crossmatch See Detail 12/21/21 11:39: POC Glucose 132 H Physical Exam Const alert and oriented x3 Constitutional Narrative: looks uncomfortable due to pain HEENT head/scalp atraumatic, moist oral mucous membranes and oropharynx normal Head and Scalp: normocephalic Mouth: oral and palatal mucosa normal Eyes PERRL and EOMs intact bilaterally Neck no lymphadenopathy and supple Resp Resp Narrative: mildly diminished breath sounds bibasally, no wheezes or crackles. on 4L of oxyg en by nasal canula, tachypneic Cardio regular rhythm, S1 normal heart sound, S2 normal heart sound and no murmurs Cardio Narrative: mildly tachycardic GI normal to inspection, nondistended, normoactive bowel sounds, soft to palpation, non-tender and non-distended Extremity Extremity Narrative: LLE has intact dressing over ulcer, with diminished pulses and leg cool to touch Neuro oriented x3, CN's II-XII intact bilaterally, moves all extremities and no focal motor deficits Sensorium / Orientation: awake and alert Speech: speech normal Motor Exam: strength 5/5 throughout Psych affect normal Assessment & Plan Assessment/Plan (1) PAOD (peripheral arterial occlusive disease): PLAN: Plan #Peripheral artery disease of hte LLE with a nonhealing LLE ulcer * has had multiple arteriograms and failed angioplasty * Angioplasty done on 12/18/2021 showed residual clot in the SFA with severe small vessel disease with no flow into the foot despite a patent popliteal artery, tibioperoneal trunk and [employer]. Attempted revascularization was futile. * Was admitted to the service of vascular surgery for left BKA. * On heparin drip as well as aspirin, prasugrel and cilostazol. * for left BKA on Wednesday12/22/2021 * #CAD s/p CABG and PCI * On aspirin * #Chronic heart failure preserved ejection fraction: Not in exacerbation. 2D echo done at [facility] requested #CKD stage IIIa: Creatinine at baseline. #History of lung cancer: Stable. Breathing treatments bronchodilators #COPD: Not in exacerbation. Breathing treatments with bronchodilators #Type 2 diabetes mellitus with peripheral neuropathy: * Insulin sliding scale. Accu-Cheks ACH S. * on Jardiance and metformin #Hypertension: On metoprolol and lisinopril #Hyperlipidemia: On atorvastatin, Vascepa and fenofibrate as well as alirocumab #CHRonic respiratory failure due to COPD and heart failure * on 4L of oxygen today; usually wears 2L of oxygen. * titrate oxygen and wean down to baseline 2L of oxygen as tolerated. * breathing treatment with bronchodilators * DVT prophylaxis: on heparin drip Charges/Coding Visit Charges Inpatient E&M: 57261 Subs Hosp L2
[2021-12-21] MEDS: HYDROmorphone PCA 0.2 MG/ML 100 ML BAG 20 MG IV ×2 (14:25→16:25)
--- NOTE | 2021-12-21 14:35 | NURSING ---
5ml of dilaudid wasted with iDlip Mckeon RN at 1425.
[2021-12-21 17:05] LABS: Bedside Glucose 132 mg/dL (74-106)
[2021-12-21] MEDS: Atorvastatin Calcium 80 MG Tablet PO (21:05)
[2021-12-21] MEDS: Senna/Docusate Sodium 1 Tablet 2 TABLET PO (21:06)
--- NOTE | 2021-12-21 21:26 | NURSING ---
pt on 5L NC, O2 85%. Lung sounds clear/dim. pt is tachypneic, no labored breathing. bumped up to 6L high flow, O2 97%. called respiratory to come assess and made MD aware. MD stated if pt starts having labored breathing he could go on bipap.
[2021-12-21 23:55] LABS: Bedside Glucose 141 mg/dL (74-106)
[2021-12-22] VITALS (28 sets, daily range): BP systolic 97–143; BP diastolic 56–83; PULSE 81–116; RESP 12–25; TEMP 36.6–38.1; O2SAT 86–99; BMI 35.9
[2021-12-22] MEDS: 0.9% Normal Saline 1,000 ML 100 ML IV (04:31)
[2021-12-22 05:49] LABS: Absolute Lymphocyte Count 1.18 X10^3/uL (0.83-4.51); Absolute Neutrophil Count 6.5 X10^3/uL (2.0-7.7); Basophil# 0.01 X10^3/uL; Basophil% 0.1 % (0-1); Eosinophils% 2.3 % (0-5); Hematocrit 33.6 % (40-54); Hemoglobin 10.4 g/dL (13.0-16.5); Lymphocyte # 1.18 X10^3/ul (0.83-4.51); Lymphocyte % 13.5 % (19-41); Mean Corpuscular Hgb 23.3 pg (27.0-32.0); Mean Corpuscular Volume 75.3 fL (80-94); Mean Platelet Vol. 9.2 fl (6.2-12.0); Monocyte# 0.77 X10^3/uL; Monocyte% 8.8 % (0-10); NRBC Flagged by Analyzer 0 % (0-5); Neutrophil # 6.52 X10^3/uL (2.7-7.7); Neutrophil % 74.7 % (47-70); Platelet Count 283 K/mm3 (150-450); RBC Distribution Width CV 18.6 % (11.6-14.6); RBC Distribution Width SD 51.2 fl (35.1-43.9); Red Blood Count 4.46 M/mm3 (4.6-6.2); White Blood Count 8.7 K/mm3 (4.4-11.0)
--- NOTE | 2021-12-22 05:55 | EKG12_ITS ---
Test Reason : pre-op Blood Pressure : / mmHG Vent. Rate : 109 BPM Atrial Rate : 109 BPM P-R Int : 138 ms QRS Dur : 096 ms QT Int : 330 ms P-R-T Axes : 044 057 008 degrees QTc Int : 444 ms Sinus tachycardia with occasional Premature ventricular complexes Possible Anterior infarct , age undetermined Abnormal ECG Confirmed by CHAITANYA LAWSON, MEETA ([id number]), editor managing director YANELIS ZEPEDA ([id number]) on 12/22/2021 2:04:01 PM Referred By: Eric Confirmed By:MEETA TAVARES MD
[2021-12-22 05:58] LABS: Partial Thromboplast Time 48.2 Seconds (24.1-36.2)
[2021-12-22 06:22] LABS: Anion Gap 8 (5-15); BUN 13 mg/dL (7-18); BUN/Creat Ratio 11.2 RATIO (10-20); Calcium,Total 8.3 mg/dL (8.5-10.1); Chloride 106 mmol/L (98-107); Creatinine, Serum 1.16 mg/dL (0.70-1.30); EST Glomerular Filtration Rate 67 mL/min (>60); Est Glom Filt Rate - Afr Amer 81 mL/min (>60); Estimated Creatinine Clearance 57.29 ml/min; Glucose 150 mg/dL (74-106); Potassium 3.8 mmol/L (3.5-5.1); Sodium Level 136 mmol/L (136-145)
[2021-12-22 06:50] LABS: Bedside Glucose 136 mg/dL (74-106)
[2021-12-22 07:22] LABS: Hemoglobin A1c 7.6 % (3.8-5.6)
--- NOTE | 2021-12-22 07:39 | NURSING ---
Verified [employer] pump with Cora myers RN.
[2021-12-22] MEDS: ICOSAPENT ETHYL 1 GM CAPSULE 2 GM PO (09:27)
[2021-12-22] MEDS: Gabapentin 300 MG Capsule PO ×2 (09:27→12:25)
[2021-12-22] MEDS: Acetaminophen 325 MG Tablet 650 MG PO ×2 (09:28→21:31)
[2021-12-22] MEDS: Cilostazol 50 MG Tablet 100 MG PO ×2 (09:28→21:32)
[2021-12-22] MEDS: buPROPion (SR) 150 MG Tablet.SA PO ×2 (09:28→21:33)
[2021-12-22] MEDS: Pantoprazole Sodium 40 MG Tablet PO (09:29)
[2021-12-22] MEDS: Metoprolol Tartrate 25 MG Tablet PO ×2 (09:29→21:33)
[2021-12-22] MEDS: Fenofibrate 145 MG Tablet PO (09:29)
[2021-12-22] MEDS: Lisinopril 2.5 MG Tablet PO (09:29)
[2021-12-22] MEDS: 0.9% Saline Lock 10 ML Syringe IV ×2 (11:01→23:29)
--- NOTE | 2021-12-22 11:01 | PN.HOSP_ITS ---
Documented by User: JAMIE Greenfield 12/22/21 11:12 Subjective Subjective Patient seen and examined. Patient sitting in bed no distress noted. Patient going for left below the knee amputation at 1245 today Objective Data Objective Data Vital Signs: Vital Signs Temp Pulse Resp BP Pulse Ox O2 Del Method O2 Flow Rate 100.5 F H 113 H 17 122/68 H 92 Nasal Cannula 3.5 12/22/21 10:00 12/22/21 10:00 12/22/21 10:00 12/22/21 10:00 12/22/21 10:00 12/22/21 10:00 12/22/21 10:00 Oxygen Flow Rate (L/min) 3.5 Oxygen Delivery Method Nasal Cannula Weight: 222 lb 10.67 oz Body Mass Index (BMI) 35.9 Intake & Output: Intake and Output for Last 24 Hours 12/20/21 12/21/21 12/22/21 23:59 23:59 23:59 Intake Total 2887.83 / 2887.83 3100 / 3100 1140.89 / 1140.89 Output Total 2725 / 2725 2400 / 2400 500 / 500 Balance 162.83 / 162.83 700 / 700 640.89 / 640.89 Lab / Micro Data Result Diagrams: 12/22/21 05:02 12/22/21 05:02 Labs: Laboratory Results - last 24 hr 12/21/21 09:35: Blood Type A POSITIVE, Antibody Screen NEGATIVE, Crossmatch See Detail 12/21/21 11:39: POC Glucose 132 H 12/21/21 16:05: POC Glucose 132 H 12/21/21 21:03: POC Glucose 141 H 12/22/21 05:02: WBC 8.7, RBC 4.46 L, Hgb 10.4 L, Hct 33.6 L, MCV 75.3 L, MCH 23.3 L, MCHC 31.0 L, RDW Std Deviation 51.2 H, RDW Coeff of Amaris 18.6 H, Plt Count 283, MPV 9.2, Immature Gran % (Auto) 0.600, Neut % (Auto) 74.7 H, Lymph % (Auto) 13.5 L, [place] % (Auto) 8.8, Eos % (Auto) 2.3, Baso % (Auto) 0.1, Absolute Neuts (auto) 6.5, Absolute Lymphs (auto) 1.18, Nucleated RBC % 0 12/22/21 05:02: Sodium 136, Potassium 3.8, Chloride 106, Carbon Dioxide 22.0, Anion Gap 8, BUN 13, Creatinine 1.16, Estim Creat Clear Calc 57.29, Est GFR (MDRD) Af Amer 81, Est GFR (MDRD) Non-Af 67, BUN/Creatinine Ratio 11.2, Glucose 150 H, Calcium 8.3 L 12/22/21 05:02: APTT 48.2 H 12/22/21 05:02: Hemoglobin A1c 7.6 H 12/22/21 06:15: POC Glucose 136 H Physical Exam Const alert, oriented x3 and no apparent distress HEENT head/scalp atraumatic and moist oral mucous membranes Head and Scalp: normocephalic Eyes conjunctivae normal and no scleral icterus Neck no lymphadenopathy and supple Resp normal respiratory effort and clear to auscultation bilaterally Cardio regular rate, regular rhythm, S1 normal heart sound and S2 normal heart sound GI normal to inspection, nondistended, normoactive bowel sounds, soft to palpation and non-tender Extremity normal to inspection and full ROM Neuro oriented x3, moves all extremities and no focal motor deficits Sensorium / Orientation: awake and alert Psych affect normal Assessment & Plan Assessment/Plan (1) PAOD (peripheral arterial occlusive disease): PLAN: Plan 1. Peripheral artery disease with nonhealing left lower extremity ulcer -Patient has had multiple arteriograms and failed angioplasty, last angioplasty done 12/18/2021 with failed attempted revascularization. No flow to the foot despite a patent popliteal, tibial peroneal trunk and [employer]ARIAN. -Heparin drip on hold for surgery -Patient scheduled for left BKA today 12/22/2021 at 1245 2. CAD status post CABG and PCI -Aspirin on hold for surgery 3. Chronic respiratory failure due to COPD and chronic heart failure with preserved EF -Currently stable no exacerbation -Wean oxygen as tolerated, currently on 3.5 L nasal cannula oxygen. Patient on 2 L oxygen baseline -Continue breathing treatments 4. CKD stage IIIa -Stable, creatinine at baseline -BMP daily 5. Diabetes mellitus type 2 -ACH S blood sugars with sliding scale insulin ordered -Jardiance and metformin on hold 6. Hypertension -Continue metoprolol lisinopril -Vital signs per protocol, currently stable DVT prophylaxis-not indicated, currently on heparin drip This patient was seen by Maryjane No NP-C under the supervision of Dr. Guzman. 13 minutes spent in clinical coordination of patient's plan of care. Documented by User: Dr. Susanne Guzman MD 12/22/21 13:34 Objective Data Lab / Micro Data Result Diagrams: 12/22/21 05:02 12/22/21 05:02 Assessment & Plan Assessment/Plan (1) PAOD (peripheral arterial occlusive disease): Charges/Coding Addendum Addendum: This patient was seen in conjunction with Ketan No NP. I have independently interviewed and examined the patient and reviewed pertinent historical, laboratory, and other data. I have reviewed her note and concur with her documentation Patient was seen and examined. He is going for surgery today. He complains of severe pain in his left lower extremity. Denied any chest pain or dizziness. Physical Exam: Gen: Comfortable, not pale, not jaundiced, on 3 L of oxygen, CVS:HS I +II, regular, no murmurs RESP: Diminished at lung bases GI: BS present and normal, soft, nontender, no palpable organs EXT:No edema ASSESSMENT: 1. PAD 2. Chronic nonhealing left lower extremity ulcer 3. CAD status post CABG and PCI 4. Chronic heart failure with preserved EF 5. CKD stage IIIa 6. History of lung CA 7. Type II DM 8. Hypertension 9. Hyperlipidemia 10. Chronic hypoxic respiratory failure Plan: Continue with pain control We will follow-up after surgery Repeat blood work in a.m. Time spent coordinating all aspects of patient's care, discussing with nursin minutes Visit Charges Inpatient E&M: 85393 Subs Hosp L2
[2021-12-22 12:15] LABS: Bedside Glucose 139 mg/dL (74-106)
--- NOTE | 2021-12-22 13:32 | NURSING ---
Pt down to AC at 1245 for surgery.
[2021-12-22 13:36] LABS: Bedside Glucose 131 mg/dL (74-106)
--- NOTE | 2021-12-22 14:00 | AMP_PTH ---
PATIENT: AMADOR NAVARRETE III LOC: [facility] U#:[id number] AGE/SX: 66/M ROOM: [facility] RE12/19/[address]: Dr. Jhonathan Reyes MD : [id number] BED: 1 DIS: 12/25/2021 SPEC #: [id number] RECD: 12/22/21 16:06 STATUS: BRIDGETT RESreedhar #: [id number] SOPHIE: 12/22/21 14:[address]: Jhonathan Reyes DEPT: SURGICAL PATHOLOGY RECD BY: Helen Bansal ENTERED: 12/23/21 08:05 SP TYPE: Amputation OTHR DR: MD Dr. Amado Harvey MD Dr. Derek Brown, DO Estelle Dempsey, BEEF SPLITTER-C Tissues: Leg, NOS Procedures: Decalcification bone/plaque Surgery Specimen Level V HEADER OPERATION: Below the knee amputation PRE-OP DIAGNOSIS: Peripheral arterial occlusive disease TISSUE SUBMITTED: Left, below the knee leg MICROSCOPIC DIAGNOSIS Left leg, below the knee amputation: Skin and soft tissue, anterior leg - ulceration with acute and chronic inflammation and granulation Skin and tissue at margin of resection- no pathologic change. Dorsal pedis artery ? moderate intimal fibroplasia and calcifications of media. Anterior tibial artery ? moderate to severe intimal fibroplasia and calcifications of media. Posterior tibial artery - moderate intimal fibroplasia and calcifications of media. Bone marrow at resection margin ? no evidence of osteomyelitis. AM: am 12/26/2021 MICROSCOPIC DESCRIPTION Slides are reviewed. GROSS DESCRIPTION Received labeled with the patient's name and designated left leg, below the knee. The specimen consists of below knee amputation of left lower extremity. The leg measures from anterior line of resection to heel 26 cm. The foot measures 22 cm. Posterior line of resection is 12 cm below the anterior line of resection. Two cm of tibia and 3 cm portion of fibula are projecting beyond the cutaneous line of resection. A focal area of ulceration is noted anteriorly in the middle of leg close to the horvath measuring 9.0 x 1 cm. Ulcer does not extend to underlying bone. Nails appears atrophic. Dorsalis pedis, anterior tibial and posterior tibial vessels are dissected. Anterior tibial and posterior tibial vessels show focal areas of narrowing and cut with gritty sensation. Supervisor Sign Shop sections are submitted as follows: 1 ? cutaneous and skeletal resection margins, 2 ? ulcerated area, 3 dorsalis pedis vessels, 4 ? anterior tibial vessels, 5 ? posterior tibial vessels, 6 ? marrow at the resection margin. Cassettes 4 and 5 are submitted after decalcifications. /AL:alvarado 12/23/21 Tc:2 CPT:25001, 89818
--- NOTE | 2021-12-22 15:49 | NURSING ---
RESIDENTIAL CARPENTER medication monitoring assessment not completed at 1500 due to patient being off unit for surgery
[2021-12-22] MEDS: Bupivacaine 0.25% 30 ML Vial (16:00)
--- NOTE | 2021-12-22 16:53 | NURSING ---
POSS score not completed due to patient being off unit in surgery
--- NOTE | 2021-12-22 17:23 | PCM.OPRPT ---
Report of Operation Pre-Operative Diagnosis: atherosclerosis with rest pain, non-healing wound left lower extremity Post-Operative Diagnosis: same Surgery/Procedure Performed:: left below knee amputation Description of Surgical Findings:: viable muscle, satisfactory skin edge and tissue bleeding Surgeon: Jhonahtan Reyes Type of Anesthesia: General Estimated Blood Loss (mL): 500 Description of Procedure: HPI: Patient is a 66-year-old male with multiple efforts at salvage of left lower extremity with multiple prior failed revascularizations. Most recently he presented to outside facility with acute ischemia where multiple percutaneous efforts were futile in reestablishing perfusion. Given my longstanding relationship with the patient he request to be transferred here for his amputation. Description of procedure: Upon obtaining informed consent and verification correct patient procedure and site patient was taken the operating where he was placed under general anesthesia. He was then positioned prepped and draped in usual sterile fashion a timeout was performed. Given patient's inability to hold his dual antiplatelet due to recent coronary stents is expected to be at high risk of bleeding so a total of two 5 packs of platelets are planned to be transfused Intra-Op and early postop. This infusion was initiated shortly after incision. Skin incision was then marked with posterior flap orientation and incision made with 10 blade. There was satisfactory skin edge bleeding as well as copious bleeding from the subcutaneous tissue. Electrocautery was used to dissect down to the anterior aspect of the tibia and used to incise the fascia medial to and lateral to the bone. There is a significant amount of scar tissue from his previous fasciotomies and multiple revascularization efforts however we were able to create a satisfactory plane for posterior flap creation. We then carried the dissection distally on the medial aspect of the leg as well as the lateral aspect and completion of the posterior flap at the distal aspect of the posterior calf. Once the musculature of the anterior lateral and posterior compartments was dissected to a point where tibia and fibula were accessible we then used a periosteal elevator to clear connective tissue from the bone. The tibia was then divided with a reciprocating saw with an anterior bevel cephalad to the skin incision. The fibula was then transected with a bone cutter further cephalad than the tibia. An amputation knife was then used to fashion the posterior flap and complete the division of the tissue. The specimen was then passed off the field and the wound inspected for hemostasis. What appeared to be the tibioperoneal trunk and adjacent vein were clamped with right angle and oversewn with 2-0 silk suture. Other adjacent collaterals were controlled with simple silk ties. The nerve was then from the vascular structures and retract down into the wound though the scar left minimal opportunity for retraction. The nerve is then injected with Marcaine and it was then ligated with a silk tie divided and allowed to retract into the musculature. Wound was then irrigated with saline and any remaining hemostasis obtained with Bovie. Some of the musculature the posterior compartment had to be excised to allow tension-free wound closure this was done with Bovie. The tibia was then smoothed with a rasp and the fascia closed with interrupted 2-0 Vicryl. Skin was then closed with interrupted 3-0 nylon. A posterior splint was then applied followed by an Nish to help maintain knee extension and protect the incision. Patient then awakened anesthesia taken to recovery room with anticipated return to the progressive care unit.
[2021-12-22] MEDS: Ipratropium/Albuterol Sulfate 3 ML AMPUL.NEB INHALATION (17:26)
[2021-12-22 17:40] LABS: Bedside Glucose 146 mg/dL (74-106)
--- NOTE | 2021-12-22 18:04 | SUR.PHASEI ---
BIPAP INITIATED 21/12, RATE 14, FIO2 50%
--- NOTE | 2021-12-22 18:27 | RAD_ITS ---
STUDY: X-RAY CHEST REASON FOR EXAM: Male, 66 years old. hypoxia post-op -- STAT WET READ TO HOSPITALIST,MARIO RAMIREZU RN TECHNIQUE: Single AP portable view of the chest. COMPARISON: 12/19/2021 FINDINGS: Lungs are hypoinflated. Patchy airspace disease bilaterally could represent acute airspace disease versus hypoinflation and vascular crowding. No evidence of effusions. There is mild cardiac enlargement. Sternotomy wires are noted. Normal mediastinum and katiana. Normal visualized pulmonary arteries. Normal visualized aortic arch and descending thoracic aorta. Normal visualized thoracic spine. Normal visualized ribs, clavicles, and shoulders. There is no demonstrated abnormality of the visualized soft tissue structures of the upper abdomen. RAD/Chest 1 View (Portable) IMPRESSION: Hypoinflated lungs as compared to most recent prior. Probable vascular crowding however, subtle mild diffuse airspace disease cannot be excluded. Follow-up imaging is recommended Electronically Signed: Ryan May DO at 22:26 EDT ,
[2021-12-22] MEDS: Furosemide 40 MG/4 ML Vial IV (18:34)
--- NOTE | 2021-12-22 18:55 | EKG12_ITS ---
Test Reason : TACHY Blood Pressure : / mmHG Vent. Rate : 112 BPM Atrial Rate : 112 BPM P-R Int : 142 ms QRS Dur : 082 ms QT Int : 326 ms P-R-T Axes : 038 062 057 degrees QTc Int : 444 ms Sinus tachycardia Nonspecific ST abnormality Abnormal ECG When compared with ECG of 22-DEC-2021 04:48, Premature ventricular complexes are no longer Present Confirmed by CHAITANYA LAWSON, MEETA ([id number]), research editor YANELIS ZEPEDA ([id number]) on 12/25/2021 10:15:00 AM Referred By: DR COULTER Confirmed By:METEA TAVARES MD
[2021-12-22 18:56] LABS: Allen Test Positive; Base Excess -3 mmol/L (-2 to +2); Blood Gas Specimen Type ART; FI02 55; O2 Delivery Device BiPAP; PO2 85 mmHG (75-100); SITE R Radial; SO2 96 % (95-99); Total Carbon Dioxide 23 mmol/L; pCO2 36.4 mmHg (35-45); pH 7.39 (7.35-7.45)
--- NOTE | 2021-12-22 19:12 | PN.HOSP_ITS ---
Hospitalist Note Notified by PACU that patient is currently on BiPAP due to hypoxia and increased respirations. Patient seen and evaluated in PACU. Patient respirations improved since initiation of BiPAP with respirations of 20, O2 sat 93% on BiPAP with an FiO2 ratio of 55%. Patient's other vital signs stable and consistent with preoperative values. Patient lung sounds are diminished with crackles throughout. Patient lung sounds this morning were clear. Patient has a history of heart failure and has been receiving IV fluids throughout admission and re ceived 2 5 packs of platelets in OR as well. Patient likely fluid overloaded which is a contributing to his shortness of breath and hypoxia. Chest x-ray, EKG, ABG, BNP obtained. Lasix 40 mg IV given x1. ABG within normal limits. Chest x-ray obtained, report pending. Physical Exam Const Vital Signs: 12/21/21 19:42 12/21/21 19:53 12/21/21 21:05 Temperature 97.7 F L Temperature Source Temporal Pulse Rate 98 112 H 129 H Pulse Strength Respiratory Rate 19 H Respiratory Effort Respiratory Depth Respiratory Pattern Blood Pressure 123/53 H Blood Pressure Mean 76 Blood Pressure Source Blood Pressure Position Blood Pressure Location Pulse Ox 95 Oxygen Delivery Method Nasal Cannula Oxygen Flow Rate (L/min) 5 Fraction of Inspired Oxygen (FIO2) 12/21/21 21:13 12/21/21 21:15 12/21/21 22:00 Temperature 98.3 F Temperature Source Temporal Pulse Rate 126 H Pulse Strength Normal (2+) Respiratory Rate 22 H Respiratory Effort Normal Non-Labored Respiratory Depth Normal Respiratory Pattern Tachypnea Blood Pressure 107/61 Blood Pressure Mean 76 Blood Pressure Source Monitor Blood Pressure Position Semi-Fowlers Blood Pressure Location Right Arm Pulse Ox 98 Oxygen Delivery Method High Flow High Flow Oxygen Flow Rate (L/min) 6 6 Fraction of Inspired Oxygen (FIO2) 12/21/21 22:29 12/21/21 22:32 12/21/21 23:00 Temperature 98.6 F Temperature Source Temporal Pulse Rate 110 H Pulse Strength Respiratory Rate 19 H 24 H Respiratory Effort Respiratory Depth Respiratory Pattern Blood Pressure 123/68 H Blood Pressure Mean 86 Blood Pressure Source Monitor Blood Pressure Position Semi-Fowlers Blood Pressure Location Right Arm Pulse Ox 96 96 97 Oxygen Delivery Method High Flow Nasal Cannula Nasal Cannula Oxygen Flow Rate (L/min) 6 5 5 Fraction of Inspired Oxygen (FIO2) 12/21/21 23:03 12/21/21 23:04 12/22/21 00:14 Temperature Temperature Source Pulse Rate Pulse Strength Respiratory Rate Respiratory Effort Respiratory Depth Respiratory Pattern Blood Pressure Blood Pressure Mean Blood Pressure Source Blood Pressure Position Blood Pressure Location Pulse Ox 97 96 99 Oxygen Delivery Method High Flow Nasal Cannula Nasal Cannula Oxygen Flow Rate (L/min) 5 4 4 Fraction of Inspired Oxygen (FIO2) 12/22/21 00:17 12/22/21 02:48 12/22/21 02:49 Temperature Temperature Source Pulse Rate Pulse Strength Respiratory Rate 25 H Respiratory Effort Normal Non-Labored Respiratory Depth Normal Respiratory Pattern Tachypnea Blood Pressure Blood Pressure Mean Blood Pressure Source Blood Pressure Position Blood Pressure Location Pulse Ox 95 97 Oxygen Delivery Method Nasal Cannula Nasal Cannula Nasal Cannula Oxygen Flow Rate (L/min) 3 3 3 Fraction of Inspired Oxygen (FIO2) 12/22/21 03:27 12/22/21 04:27 12/22/21 07:00 Temperature 98.5 F Temperature Source Temporal Pulse Rate 106 H 109 H Pulse Strength Respiratory Rate 16 20 H Respiratory Effort Respiratory Depth Respiratory Pattern Blood Pressure 143/77 H Blood Pressure Mean 99 Blood Pressure Source Monitor Blood Pressure Position Semi-Fowlers Blood Pressure Location Right Arm Pulse Ox 95 93 Oxygen Delivery Method Nasal Cannula Nasal Cannula Oxygen Flow Rate (L/min) 3 3 Fraction of Inspired Oxygen (FIO2) 12/22/21 07:00 12/22/21 08:10 12/22/21 08:00 Temperature Temperature Source Pulse Rate 112 H Pulse Strength Normal (2+) Respiratory Rate 20 H Respiratory Effort Normal Non-Labored Respiratory Depth Normal Respiratory Pattern Tachypnea Blood Pressure Blood Pressure Mean Blood Pressure Source Blood Pressure Position Blood Pressure Location Pulse Ox 92 Oxygen Delivery Method Nasal Cannula Oxygen Flow Rate (L/min) 3.5 Fraction of Inspired Oxygen (FIO2) 12/22/21 09:29 12/22/21 10:00 12/22/21 11:00 Temperature 100.5 F H Temperature Source Oral Pulse Rate 110 H 113 H Pulse Strength Respiratory Rate 17 18 Respiratory Effort Respiratory Depth Respiratory Pattern Blood Pressure 114/69 122/68 H Blood Pressure Mean 86 Blood Pressure Source Monitor Blood Pressure Position Semi-Fowlers Blood Pressure Location Right Arm Pulse Ox 92 92 Oxygen Delivery Method Nasal Cannula Nasal Cannula Oxygen Flow Rate (L/min) 3.5 3.5 Fraction of Inspired Oxygen (FIO2) 12/22/21 11:00 12/22/21 12:00 12/22/21 17:07 Temperature 98.4 F 98.1 F Temperature Source Oral Temporal Pulse Rate 96 112 H Pulse Strength Respiratory Rate 20 H 18 24 H Respiratory Effort Normal Non-Labored Respiratory Depth Normal Respiratory Pattern Normal Normal Blood Pressure 107/67 128/67 H Blood Pressure Mean 80 87 Blood Pressure Source Monitor Monitor Blood Pressure Position Semi-Fowlers Semi-Fowlers Blood Pressure Location Right Arm Right Arm Pulse Ox 92 92 99 Oxygen Delivery Method Nasal Cannula Nasal Cannula Simple Mask Oxygen Flow Rate (L/min) 3.5 3.5 8 Fraction of Inspired Oxygen (FIO2) 12/22/21 17:31 12/22/21 17:41 12/22/21 17:57 Temperature Temperature Source Pulse Rate 111 H 112 H Pulse Strength Respiratory Rate 24 H 24 H Respiratory Effort Respiratory Depth Respiratory Pattern Blood Pressure 134/83 H 124/70 H Blood Pressure Mean 100 88 Blood Pressure Source Monitor Monitor Blood Pressure Position Semi-Fowlers Semi-Fowlers Blood Pressure Location Right Arm Right Arm Pulse Ox 90 87 86 Oxygen Delivery Method Nasal Cannula Nasal Cannula Nasal Cannula Oxygen Flow Rate (L/min) 8 6 6 Fraction of Inspired Oxygen (FIO2) 12/22/21 17:28 12/22/21 17:30 12/22/21 18:06 Temperature Temperature Source Pulse Rate 81 113 H Pulse Strength Respiratory Rate 21 H 18 Respiratory Effort Respiratory Depth Respiratory Pattern Tachypnea Blood Pressure 133/76 H Blood Pressure Mean 95 Blood Pressure Source Monitor Blood Pressure Position Semi-Fowlers Blood Pressure Location Right Arm Pulse Ox 91 96 Oxygen Delivery Method Simple Mask Bi-pap Oxygen Flow Rate (L/min) 8 Fraction of Inspired Oxygen (FIO2) 50 12/22/21 18:20 12/22/21 18:21 12/22/21 18:30 Temperature Temperature Source Pulse Rate 110 H 112 H Pulse Strength Normal (2+) Respiratory Rate 18 20 H Respiratory Effort Respiratory Depth Respiratory Pattern Blood Pressure 110/76 118/82 H Blood Pressure Mean 87 94 Blood Pressure Source Monitor Monitor Blood Pressure Position Semi-Fowlers Semi-Fowlers Blood Pressure Location Right Arm Right Arm Pulse Ox 95 93 Oxygen Delivery Method Bi-pap Bi-pap Oxygen Flow Rate (L/min) Fraction of Inspired Oxygen (FIO2) 50 55 12/22/21 18:40 12/22/21 18:30 Temperature 97.9 F Temperature Source Temporal Pulse Rate 113 H 112 H Pulse Strength Respiratory Rate 20 H 18 Respiratory Effort Respiratory Depth Respiratory Pattern Normal Blood Pressure Blood Pressure Mean Blood Pressure Source Monitor Blood Pressure Position Semi-Fowlers Blood Pressure Location Right Arm Pulse Ox 93 95 Oxygen Delivery Method Bi-pap Oxygen Flow Rate (L/min) Fraction of Inspired Oxygen (FIO2) 55 55 HEENT Reports normocephalic and head/scalp atraumatic Eyes conjunctivae normal and no scleral icterus Neck General: trachea midline Chest Wall inspection of chest normal and palpation of chest normal Resp Effort and Inspection: symmetric chest movement and tachypneic Auscultation: crackles bilateral base and diminished lung sounds bilateral throughout Cardio regular rate, regular rhythm, S1 normal heart sound, S2 normal heart sound and peripheral pulses 2+ throughout Rate: tachycardic GI normal to inspection, nondistended, normoactive bowel sounds, soft to palpation and non-tender Extremity Extremity Narrative: Status post left BKA Neuro no focal motor deficits Neuro Narrative: Patient drowsy, postop
[2021-12-22 19:34] LABS: BNP,B-Type NATRIURETIC PEPTIDE 6.9 pg/mL (0-100)
--- NOTE | 2021-12-22 19:44 | NURSING ---
Dilaudid HOME ASSESSMENT NURSE pump discontinued; wasted 67 mL of Dilaudid in [facility] RX destroyer with Amandeep Mckeon RN. Medication form filled out and returned to pharmacy.
--- NOTE | 2021-12-22 19:46 | NURSING ---
Patient returned from surgery with MOLDER FLOOR pump not infusing into patient but pump not turned off or clamped. senior medical writer and oncoming nurse notified. MOLDER FLOOR pump then discontinued per Dr. Reyes.
[2021-12-22] MEDS: Atorvastatin Calcium 80 MG Tablet PO (21:32)
[2021-12-22] MEDS: Senna/Docusate Sodium 1 Tablet 2 TABLET PO (21:32)
--- NOTE | 2021-12-22 21:35 | CPS ---
Nurses continuous pulse ox on since pt is post op, in step down mode on and off bipap this pm
--- NOTE | 2021-12-22 21:56 | NURSING ---
Took pt off BIPAP to give HS meds, placed on 5 L. Had to increase to 8 L NC, pt eventually desatted to 79%. Placed pt back on BIPAP, satting high 90s now.
[2021-12-22 22:05] LABS: Bedside Glucose 131 mg/dL (74-106)
[2021-12-22] MEDS: HYDROmorphone 0.5 MG/0.5 ML SYRINGE IV (23:29)
[2021-12-23] VITALS (25 sets, daily range): BP systolic 82–122; BP diastolic 43–96; PULSE 94–117; RESP 12–27; TEMP 36.4–37.6; O2SAT 80–98
[2021-12-23] MEDS: 0.9% Saline Lock 10 ML Syringe IV ×3 (01:28→07:58)
[2021-12-23] MEDS: HYDROmorphone 0.5 MG/0.5 ML SYRINGE IV ×3 (01:29→07:58)
[2021-12-23] MEDS: Acetaminophen 325 MG Tablet 650 MG PO ×4 (02:51→21:01)
[2021-12-23] MEDS: oxyCODONE 5 MG Tablet PO ×4 (02:51→21:11)
--- NOTE | 2021-12-23 04:13 | EKG12_ITS ---
Test Reason : possible a-fib Blood Pressure : / mmHG Vent. Rate : 105 BPM Atrial Rate : 105 BPM P-R Int : 152 ms QRS Dur : 094 ms QT Int : 368 ms P-R-T Axes : 044 053 025 degrees QTc Int : 486 ms Sinus tachycardia with Premature supraventricular complexes Cannot rule out Inferior infarct , age undetermined Nonspecific T wave abnormality Abnormal ECG Confirmed by ANKIT LAWSON, SURESH ([id number]), movie editor YANELIS ZEPEDA ([id number]) on 12/24/2021 9:47:55 AM Referred By: Confirmed By:SURESH PHAM MD
--- NOTE | 2021-12-23 04:46 | CPS ---
Pt was off for a mouth swab and long enough to take pain meds but had to go back on after 7 minutes. nasal O2 at 10 L spo2 was still dropping when pt would drift back off to sleep. RN notified and RT placed pt back on bipap.
[2021-12-23] MEDS: Heparin Injection (Vial) 5,000 UNIT/ML VIAL 5000 UNIT SC ×3 (05:15→21:01)
[2021-12-23 05:42] LABS: Absolute Neutrophil Count 6.2 X10^3/uL (2.0-7.7); Basophil# 0.01 X10^3/uL; Basophil% 0.1 % (0-1); Eosinophil# 0.21 X10^3/uL; Eosinophils% 2.6 % (0-5); Hematocrit 28.5 % (40-54); Lymphocyte % 10.9 % (19-41); Mean Corp Hgb Conc 31.6 g/dL (32-36); Mean Corpuscular Hgb 23.7 pg (27.0-32.0); Mean Corpuscular Volume 75.2 fL (80-94); Mean Platelet Vol. 9.2 fl (6.2-12.0); Monocyte% 10.9 % (0-10); NRBC Flagged by Analyzer 0 % (0-5); Neutrophil # 6.16 X10^3/uL (2.7-7.7); Platelet Count 363 K/mm3 (150-450); RBC Distribution Width CV 18.8 % (11.6-14.6); RBC Distribution Width SD 51.1 fl (35.1-43.9); Red Blood Count 3.79 M/mm3 (4.6-6.2); White Blood Count 8.2 K/mm3 (4.4-11.0)
[2021-12-23 06:21] LABS: Anion Gap 9 (5-15); BUN 17 mg/dL (7-18); BUN/Creat Ratio 12.1 RATIO (10-20); Calcium,Total 8.5 mg/dL (8.5-10.1); Chloride 105 mmol/L (98-107); Creatinine, Serum 1.41 mg/dL (0.70-1.30); EST Glomerular Filtration Rate 54 mL/min (>60); Est Glom Filt Rate - Afr Amer 65 mL/min (>60); Estimated Creatinine Clearance 47.13 ml/min; Glucose 136 mg/dL (74-106); Potassium 3.7 mmol/L (3.5-5.1); Sodium Level 137 mmol/L (136-145)
[2021-12-23 06:50] LABS: Bedside Glucose 143 mg/dL (74-106)
[2021-12-23] MEDS: Furosemide 40 MG/4 ML Vial IV (07:58)
[2021-12-23] MEDS: Metoprolol Tartrate 25 MG Tablet PO (09:22)
[2021-12-23] MEDS: Cilostazol 50 MG Tablet 100 MG PO ×2 (09:22→21:01)
[2021-12-23] MEDS: Pantoprazole Sodium 40 MG Tablet PO (09:22)
[2021-12-23] MEDS: buPROPion (SR) 150 MG Tablet.SA PO ×2 (09:22→21:01)
[2021-12-23] MEDS: Fenofibrate 145 MG Tablet PO (09:23)
[2021-12-23] MEDS: ICOSAPENT ETHYL 1 GM CAPSULE 2 GM PO ×2 (09:23→16:39)
--- NOTE | 2021-12-23 09:52 | CON.PCM.CC_ITS ---
Assessment & Plan Assessment/Plan (1) Acute respiratory failure with hypoxia: (2) PAOD (peripheral arterial occlusive disease): PLAN: Plan RECOMMENDATIONS: 1. Initiate bronchodilator therapy 2. Encourage incentive spirometer/pulmonary recruitment measures 3. Limit narcotics as much as possible 4. Outpatient complete PFT and sleep study 5. Daily Lasix as renal function allows IMPRESSIONS: 1. Acute hypoxic respiratory failure Clinical suspicion for multifactorial etiology. Patient carries a diagnosis of COPD, but this has not been verified previously. Patient does not appear to be in acute exacerbation of COPD, so initiation of bronchodilator therapy is likely reasonable. Would not recommend steroids as this will decrease wound healing. Patient also has not been using pulmonary recruitment measures, so atelectasis may be a concern. Patient does have a history of diastolic dysfunction and may have had an element of pulmonary edema. Personal review of the chest x-ray does show increased interstitial findings. Patient has received diuretics, which I believe is appropriate. However, renal function is slightly worse today, so this will have to be given on a daily basis once renal function is assessed. Patient may have an element of obstructive sleep apnea that was exacerbated by narcotic therapy. Limiting narcotics would be of good utility, but obviously it is difficult given patient's presenting situation. Outpatient complete pulmonary function test for quantification clarification of lung function along with a sleep study would be appropriate. Patient was provided some education on the appropriate use of supplemental oxygen. 2. Peripheral vascular disease/CAD status post CABG and PCI with left lower extremity amputation Patient appears to have tolerated amputation well. Will defer to vascular surgery. No steroids will be given as this will decrease wound healing and patient is already at risk given his peripheral vascular disease. 3. CKD stage IIIa/diabetes mellitus type 2/hypertension/obesity Complicates care, management, recovery and prognosis. Patient would be at risk for obstructive sleep apnea given age, male sex, BMI and need for narcotics. Patient on sliding scale insulin. Patient was verified is a full code, but need for intubation is unlikely at this time. Okay to keep on PCU HPI Consult Data Date of Consult: 12/23/21 HPI Narrative Reason for Consultation: Hypoxic respiratory failure HPI Narrative: AMADOR NAVARRETE is a 66 M, with past medical history listed below, who presents to [facility] as a transfer from [facility] secondary to recurrent left lower extremity acute ischemia. Patient reportedly had had multiple attempts to salvage with revascularization. Patient developed recurre nt rest pain about 5 days previous and attempts at [facility] were unsuccessful. Patient had requested transfer to [place] for amputation as he sees Dr. Reyes at baseline. After review the risks, benefits alternatives, patient did elect for a semielective amputation. Patient reportedly was on room air prior to the procedure saturating 92%. Patient surgery reportedly went relatively well. However, patient with significant hypoxia overnight requiring BiPAP rescue with increased FiO2. Given patient's high need for supplemental oxygen, a pulmonary consult was requested. Patient did receive Lasix overnight and again this morning. By time I had evaluated the patient, patient was down to 5 L/min nasal cannula oxygen. Patient states he does have significant pain issues, but otherwise f eels he is doing okay. Patient had not reported any respiratory complaints prior to hospitalization. 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 Patient thinks he has had a pulmonary function test previously, but is not aware of the results. Patient is not clear on where this was obtained. Patient states he does have a as needed albuterol inhaler that he uses 2-3 times per month into the winter and rarely in the summer. Patient does have an extensive smoking history, but is not on maintenance inhalers. Patient also states that he has supplemental oxygen at home, but he does not use this routinely. Patient states he has had ambiguous recommendations on when the appropriate time to use his supplemental oxygen. Patient does report a cough productive of milky white secretions on a daily basis and does not believe this has changed significantly in the last 1 to 2 months. Patient has not reported any hemoptysis. Patient does have an extensive cardiac history with coronary artery bypass and multiple stents. Patient is not aware of his current EF but I know I have had issues with fluid in the past. Patient denies any current chest pain, palpitations, nausea or vomiting. Patient subjectively feels improved from yesterday, but states that his pain is not as controlled. Patient has never had a sleep study and does not use any CPAP or BiPAP at baseline. Review of systems otherwise negative from a constitutional, HEENT, respiratory, cardiovascular, GI, genitourinary, musculoskeletal, skin, neurologic, psychiatric and hematologic system unless stated above. [facility] Medical History Anxiety and depression CAD (coronary artery disease) CKD (chronic kidney disease), stage III COPD (chronic obstructive pulmonary disease) Diabetes mellitus, type 2 Former tobacco use GERD (gastroesophageal reflux disease) History of adenocarcinoma of lung History of venous thromboembolism Obesity PAOD (peripheral arterial occlusive disease) PVD (peripheral vascular disease) Home Medications atorvastatin 80 mg tablet 80 mg PO QHS Check with primary doctor 12/18/21 [History Last Taken Unknown] bupropion HCl 150 mg tablet,12 hr sustained-release 150 mg PO BID Check with primary doctor 12/18/21 [History Last Taken Unknown] cilostazol 100 mg tablet 100 mg PO BID Check with primary doctor 12/18/21 [History Last Taken Unknown] dabigatran etexilate 150 mg capsule (Pradaxa) 150 mg PO BID Check with primary doctor 12/18/21 [History Last Taken Unknown] empagliflozin 25 mg tablet (Jardiance) 25 mg PO DAILY Check with primary doctor 12/18/21 [History Last Taken Unknown] fenofibrate 160 mg tablet 160 mg PO DAILY Check with primary doctor 12/18/21 [History Last Taken Unknown] icosapent ethyl 1 gram capsule (Vascepa) 2 g PO BID Check with primary doctor 12/18/21 [History Last Taken Unknown] lisinopril 2.5 mg tablet 2.5 mg PO DAILY Check with primary doctor 12/18/21 [History Last Taken Unknown] metformin 500 mg tablet 500 mg PO BID Check with primary doctor 12/18/21 [History Last Taken Unknown] metoprolol tartrate 25 mg tablet 25 mg PO BID Check with primary doctor 12/18/21 [History Last Taken Unknown] pantoprazole 40 mg tablet,delayed release 40 mg PO DAILY Check with primary doctor 12/18/21 [History Last Taken Unknown] prasugrel 10 mg tablet 10 mg PO DAILY Check with primary doctor 12/18/21 [History Last Taken Unknown] Allergy/AdvReac Type Severity Reaction Status Date / Time menthol AdvReac Rash Verified 12/19/21 01:10 Family History Father Heart disease Hypertension CVA (cerebral vascular accident) Myocardial infarction Mother Cancer Possibly stomach cancer. Diabetes Surgical History H/O peripheral artery bypass History of coronary artery bypass graft x 3 History of fasciotomy Hx of coronary angioplasty S/P peripheral artery angioplasty with stent placement Social History household members: spouse Smoking Status: Former smoker how long ago did patient quit smoking: Hx 0.3 ppd starting 1969, quit 05/05/21. alcohol intake: current alcohol intake frequency: holidays/special occasions only substance use type: does not use ROS ROS Narrative See HPI Physical Exam Const alert, oriented x3 and no apparent distress Constitutional Narrative: Occasional grimace. Incentive spirometer not within arms reach. HEENT head/scalp atraumatic and moist oral mucous membranes Head and Scalp: normocephalic Eyes conjunctivae normal and no scleral icterus Neck no lymphadenopathy and supple Chest Chest: abnormal inspection of the chest increased A-P diameter Resp normal respiratory effort Auscultation: rales localized (Improved with coughing) and diminished lung sounds; Negative for rhonchi or wheezes Cardio regular rate, regular rhythm, S1 normal heart sound and S2 normal heart sound GI normal to inspection, nondistended, normoactive bowel sounds, soft to palpation and non-tender Extremity normal to inspection and full ROM General Extremity: amputation Skin Skin Narrative: Dressing in place. Wound not addressed. Neuro oriented x3, moves all extremities and no focal motor deficits Sensorium / Orientation: awake and alert Psych cooperative Mood & Affect: anxious Medical Records Data Attestation: I reviewed the patient's medical records (55 pages of documentation from [facility] were reviewed.) Medical records narrative: Patient with an extensive vascular history including coronary artery disease and peripheral vascular disease. Patient does have a diagnosis listed of postoperative complications with hypoxic respiratory failure, but the severity is not elucidated from the available information. Patient does not have any pulmonary function test available for review. Patient did have a large open wound on the left lower extremity as documented by a photograph in the available information. Patient was not receiving bronchodilators at home or in the hospital at the outside facility. Lab / Micro Data Attestation: I reviewed the patient's lab results. Result Diagrams: 12/23/21 04:44 12/23/21 04:44 Labs: Laboratory Results - last 24 hr 12/22/21 11:37: POC Glucose 139 H 12/22/21 13:12: POC Glucose 131 H 12/22/21 17:21: POC Glucose 146 H 12/22/21 18:36: B-Natriuretic Peptide 6.9 12/22/21 21:31: POC Glucose 131 H 12/23/21 04:44: WBC 8.2, RBC 3.79 L, Hgb 9.0 L, Hct 28.5 L, MCV 75.2 L, MCH 23.7 L, MCHC 31.6 L, RDW Std Deviation 51.1 H, RDW Coeff of Amaris 18.8 H, Plt Count 363, MPV 9.2, Immature Gran % (Auto) 0.500, Neut % (Auto) 75.0 H, Lymph % (Auto) 10.9 L, [place] % (Auto) 10.9 H, Eos % (Auto) 2.6, Baso % (Auto) 0.1, Absolute Neuts (auto) 6.2, Absolute Lymphs (auto) 0.90, Nucleated RBC % 0 12/23/21 04:44: Sodium 137, Potassium 3.7, Chloride 105, Carbon Dioxide 23.0, Anion Gap 9, BUN 17, Creatinine 1.41 H, Estim Creat Clear Calc 47.13, Est GFR (MDRD) Af Amer 65, Est GFR (MDRD) Non-Af 54 L, BUN/Creatinine Ratio 12.1, Glucose 136 H, Calcium 8.5 12/23/21 06:28: POC Glucose 143 H ABG Data ABG results: ABG 12/22/21 18:48 Specimen Type ART Sample Site R Radial pH 7.39 Bicarbonate Actual 22.0 Total CO2 23 Base Excess -3 L O2 Saturation 96 O2 % 55 ABG pCO2 36.4 ABG pO2 85 Rinku Test Positive O2 Delivery Device BiPAP Clinical Comments 14*8. 55 fio2 Attestation: I personally reviewed and interpreted this ABG as follows: (Compensated metabolic acidosis with increased AA gradient) Radiology Impression Chest X-Ray 12/22/21 18:27 IMPRESSION: Hypoinflated lungs as compared to most recent prior. Probable vascular crowding however, subtle mild diffuse airspace disease cannot be excluded. Follow-up imaging is recommended Electronically Signed: Ryan May DO at 22:26 EDT , Charges/Coding Visit Charges Inpatient E&M: 59212 Init Hosp L3
--- NOTE | 2021-12-23 10:18 | PCM.PN.HOSP ---
Documented by User: JAMIE Greenfield 12/23/21 10:29 Subjective Subjective Patient seen and examined. Patient improved from evaluation last night. Patient Objective Data Objective Data Vital Signs: Vital Signs Temp Pulse Resp BP Pulse Ox O2 Del Method O2 Flow Rate 98.4 F 113 H 20 H 117/62 96 Nasal Cannula 5 12/23/21 09:27 12/23/21 09:27 12/23/21 09:27 12/23/21 09:27 12/23/21 09:27 12/23/21 09:27 12/23/21 09:27 FiO2 45 12/23/21 07:01 Oxygen Flow Rate (L/min) 5 Oxygen Delivery Method Nasal Cannula Weight: 222 lb 10.67 oz Body Mass Index (BMI) 35.9 Intake & Output: Intake and Output for Last 24 Hours 12/21/21 12/22/21 12/23/21 23:59 23:59 23:59 Intake Total 3100 / 3100 2284.22 / 2284.22 30 / 30 Output Total 2400 / 2400 2200 / 2200 700 / 700 Balance 700 / 700 84.22 / 84.22 -670 / -670 Lab / Micro Data Result Diagrams: 12/23/21 04:44 12/23/21 04:44 Labs: Laboratory Results - last 24 hr 12/22/21 11:37: POC Glucose 139 H 12/22/21 13:12: POC Glucose 131 H 12/22/21 17:21: POC Glucose 146 H 12/22/21 18:36: B-Natriuretic Peptide 6.9 12/22/21 21:31: POC Glucose 131 H 12/23/21 04:44: WBC 8.2, RBC 3.79 L, Hgb 9.0 L, Hct 28.5 L, MCV 75.2 L, MCH 23.7 L, MCHC 31.6 L, RDW Std Deviation 51.1 H, RDW Coeff of Amaris 18.8 H, Plt Count 363, MPV 9.2, Immature Gran % (Auto) 0.500, Neut % (Auto) 75.0 H, Lymph % (Auto) 10.9 L, [place] % (Auto) 10.9 H, Eos % (Auto) 2.6, Baso % (Auto) 0.1, Absolute Neuts (auto) 6.2, Absolute Lymphs (auto) 0.90, Nucleated RBC % 0 12/23/21 04:44: Sodium 137, Potassium 3.7, Chloride 105, Carbon Dioxide 23.0, Anion Gap 9, BUN 17, Creatinine 1.41 H, Estim Creat Clear Calc 47.13, Est GFR (MDRD) Af Amer 65, Est GFR (MDRD) Non-Af 54 L, BUN/Creatinine Ratio 12.1, Glucose 136 H, Calcium 8.5 12/23/21 06:28: POC Glucose 143 H ABG Data ABG results: ABG 12/22/21 18:48 Specimen Type ART Sample Site R Radial pH 7.39 Bicarbonate Actual 22.0 Total CO2 23 Base Excess -3 L O2 Saturation 96 O2 % 55 ABG pCO2 36.4 ABG pO2 85 Rinku Test Positive O2 Delivery Device BiPAP Clinical Comments 14*8. 55 fio2 Radiography Diagnostic Testing: Radiology Impression Chest X-Ray 12/22/21 18:27 IMPRESSION: Hypoinflated lungs as compared to most recent prior. Probable vascular crowding however, subtle mild diffuse airspace disease cannot be excluded. Follow-up imaging is recommended Electronically Signed: Ryan May DO at 22:26 EDT , Physical Exam Const alert and no apparent distress Orientation / Consciousness: oriented to person and oriented to place HEENT normocephalic, head/scalp atraumatic and moist oral mucous membranes Eyes conjunctivae normal and no scleral icterus Neck no lymphadenopathy and supple General: trachea midline Chest inspection of chest normal and palpation of chest normal Resp normal respiratory effort and clear to auscultation bilaterally Effort and Inspection: symmetric chest movement and tachypneic Auscultation: crackles bilateral base and diminished lung sounds bilateral throughout Cardio regular rate, regular rhythm, S1 normal heart sound, S2 normal heart sound and peripheral pulses 2+ throughout Rate: tachycardic GI normal to inspection, nondistended, normoactive bowel sounds, soft to palpation and non-tender Extremity normal to inspection and full ROM Neuro moves all extremities and no focal motor deficits Sensorium / Orientation: awake and alert Psych affect normal Assessment & Plan Assessment/Plan (1) PAOD (peripheral arterial occlusive disease): PLAN: Plan 1. Peripheral artery disease with nonhealing left lower extremity ulcer -Patient has had multiple arteriograms and failed angioplasty, last angioplasty done 12/18/2021 with failed attempted revascularization. No flow to the foot despite a patent popliteal, tibial peroneal trunk and HEALTH CARE / MEDICAL JOB TITLES. 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 Patient slightly confused following surgery but this has improved overnight. -PT and OT to eval and treat 2. CAD status post CABG and PCI -Aspirin on hold for surgery 3. Chronic respiratory failure due to COPD and chronic heart failure with preserved EF -Following surgery patient initially was on BiPAP and then on 15 L nasal cannula, this was weaned this morning and patient is currently on 5 L nasal cannula with an O2 sat of 96%. Continue to wean as tolerated -Continue as needed breathing treatments, scheduled DuoNeb nebulizer treatments added by Dr. Healy today -Pulmonary following 4. CKD stage IIIa -Stable, creatinine at baseline -BMP daily 5. Diabetes mellitus type 2 -ACH S blood sugars with sliding scale insulin ordered -Jardiance and metformin on hold 6. Hypertension -Continue metoprolol lisinopril -Vital signs per protocol, currently stable DVT prophylaxis-not indicated, currently on heparin drip This patient was seen by MARCIAL GreenfieldC under the supervision of Dr. Guzman. 12 minutes spent in clinical coordination of patient's plan of care. Documented by User: Dr. Susanne Guzman MD 12/23/21 14:30 Objective Data Lab / Micro Data Result Diagrams: 12/23/21 04:44 12/23/21 04:44 Assessment & Plan Assessment/Plan (1) PAOD (peripheral arterial occlusive disease): Charges/Coding Addendum Addendum: This patient was seen in conjunction with Ketan No NP.? I have independently interviewed and examined the patient and reviewed pertinent historical, laboratory, and other data. I have reviewed her note and concur with her documentation Patient was seen and examined.? Patient was hypoxic post operatively. He was managed on BiPAP throughout the night. He diuresed and improved with Lasix. Lasix was repeated this morning. He is confused, alert oriented x2. He is on 6 L of oxygen. His is at the bedside. Physical Exam: Gen: Comfortable, not pale, not jaundiced, on 6 L of oxygen, CVS:HS I +II, regular, no murmurs RESP: Diminished at lung bases GI: BS present and normal, soft, nontender, no palpable organs EXT:No edema ASSESSMENT: 1.? PAD 2.? Chronic nonhealing left lower extremity ulcer 3.? CAD status post CABG and PCI 4.? Chronic heart failure with preserved EF 5.? CKD stage IIIa 6.? History of lung CA 7.? Type II DM 8.? Hypertension 9.? Hyperlipidemia 10.? Chronic hypoxic respiratory failure Plan: Appreciate pulmonology consult Continue with breathing treatments Continue with pain control PT/OT to evaluate and treat Repeat blood work in a.m. Time spent coordinating all aspects of patient's care, discussing with nursin minutes Visit Charges Inpatient E&M: 92560 Subs Hosp L2
[2021-12-23] MEDS: Ipratropium/Albuterol Sulfate 3 ML AMPUL.NEB INHALATION (10:35)
[2021-12-23] MEDS: Insulin Lispro 100 UNIT/ML INSULN.PEN SC ×2 (12:18→16:39)
[2021-12-23] MEDS: Gabapentin 300 MG Capsule PO ×2 (12:22→16:39)
[2021-12-23 12:40] LABS: Bedside Glucose 202 mg/dL (74-106)
--- NOTE | 2021-12-23 14:42 | PCM.PN.SRG ---
Subjective Subjective Feeling much better, pain well controlled. Some intermittent phantom pain. Zacarias diet, no CP/N/V. Not yet out of bed. Some low BP since surgery, which is common for him. Objective Data Objective Data Vital Signs: Vital Signs Temp Pulse Resp BP Pulse Ox O2 Del Method O2 Flow Rate 98.4 F 108 H 19 H 89/43 L 92 Nasal Cannula 6 12/23/21 09:27 12/23/21 10:37 12/23/21 10:37 12/23/21 11:57 12/23/21 11:57 12/23/21 11:57 12/23/21 11:57 FiO2 45 12/23/21 07:01 Oxygen Flow Rate (L/min) 6 Oxygen Delivery Method Nasal Cannula Weight: 222 lb 10.67 oz Body Mass Index (BMI) 35.9 Intake & Output: Intake and Output for Last 24 Hours 12/21/21 12/22/21 12/23/21 23:59 23:59 23:59 Intake Total 3100 / 3100 2284.22 / 2284.22 330 / 330 Output Total 2400 / 2400 2200 / 2200 1600 / 1600 Balance 700 / 700 84.22 / 84.22 -1270 / -1270 Lab / Micro Data Result Diagrams: 12/23/21 04:44 12/23/21 04:44 Labs: Laboratory Results - last 24 hr 12/22/21 17:21: POC Glucose 146 H 12/22/21 18:36: B-Natriuretic Peptide 6.9 12/22/21 21:31: POC Glucose 131 H 12/23/21 04:44: WBC 8.2, RBC 3.79 L, Hgb 9.0 L, Hct 28.5 L, MCV 75.2 L, MCH 23.7 L, MCHC 31.6 L, RDW Std Deviation 51.1 H, RDW Coeff of Amaris 18.8 H, Plt Count 363, MPV 9.2, Immature Gran % (Auto) 0.500, Neut % (Auto) 75.0 H, Lymph % (Auto) 10.9 L, [place] % (Auto) 10.9 H, Eos % (Auto) 2.6, Baso % (Auto) 0.1, Absolute Neuts (auto) 6.2, Absolute Lymphs (auto) 0.90, Nucleated RBC % 0 12/23/21 04:44: Sodium 137, Potassium 3.7, Chloride 105, Carbon Dioxide 23.0, Anion Gap 9, BUN 17, Creatinine 1.41 H, Estim Creat Clear Calc 47.13, Est GFR (MDRD) Af Amer 65, Est GFR (MDRD) Non-Af 54 L, BUN/Creatinine Ratio 12.1, Glucose 136 H, Calcium 8.5 12/23/21 06:28: POC Glucose 143 H 12/23/21 12:17: POC Glucose 202 H ABG Data ABG results: ABG 12/22/21 18:48 Specimen Type ART Sample Site R Radial pH 7.39 Bicarbonate Actual 22.0 Total CO2 23 Base Excess -3 L O2 Saturation 96 O2 % 55 ABG pCO2 36.4 ABG pO2 85 Rinku Test Positive O2 Delivery Device BiPAP Clinical Comments 14*8. 55 fio2 Radiography Diagnostic Testing: Radiology Impression Chest X-Ray 12/22/21 18:27 IMPRESSION: Hypoinflated lungs as compared to most recent prior. Probable vascular crowding however, subtle mild diffuse airspace disease cannot be excluded. Follow-up imaging is recommended Electronically Signed: Ryan May DO at 22:26 EDT , Physical Exam Const alert, oriented x3, no apparent distress and healthy appearing General Appearance: cooperative; Negative for combative or lethargic Orientation / Consciousness: awake Exam Limitations: no limitations HEENT Head and Scalp: normocephalic and atraumatic Eyes EOMs intact bilaterally General Eye: normal appearance of both eyes Neck full ROM Resp normal respiratory effort and no use of accessory muscles Effort and Inspection: Negative for labored, stridor or audible wheezes Cardio regular rate and regular rhythm Back/Spine Cervical Spine: cervical ROM normal Extremity full ROM, normal capillary refill and no clubbing, cyanosis or edema Skin no rashes or lesions noted and no wounds Wounds: amputation other posterior splint/compression dressing intact, minimal bleed through at lateral Neuro oriented x3, CN's II-XII intact bilaterally, no focal motor deficits and no sensory deficits noted Psych thought process normal, cooperative, affect normal, speech normal and activity/motor behavior normal Assessment & Plan Assessment/Plan (1) PAOD (peripheral arterial occlusive disease): PLAN: -POD # 1 left BKA -some hypotension overnight with mild tachycardia; common post anesthetic for him, observe, avoid chasing with fluid -some mild KOTA likley from hypotension; would observe for now -SQ heparin for now, likely resume heparin drip tomorrow -dressing remains in place, will remove and have prosthetic company evaluate for protective sleeve fitting -pain regimen converting to PO, oxy and neurontin
[2021-12-23] MEDS: Juven (unflavored) Packet 1 PACKET PO (16:39)
[2021-12-23 17:06] LABS: Bedside Glucose 178 mg/dL (74-106)
[2021-12-23] MEDS: Atorvastatin Calcium 80 MG Tablet PO (21:01)
[2021-12-23] MEDS: Albuterol 2.5 MG/3 ML VIAL.NEB. INHALATION (21:05)
[2021-12-23 21:25] LABS: Bedside Glucose 138 mg/dL (74-106)
[2021-12-24] VITALS (24 sets, daily range): BP systolic 103–120; BP diastolic 53–73; PULSE 95–118; RESP 12–27; TEMP 36.4–37.6; O2SAT 91–100
[2021-12-24] MEDS: Ipratropium/Albuterol Sulfate 3 ML AMPUL.NEB INHALATION ×4 (01:21→19:43)
[2021-12-24] MEDS: Acetaminophen 325 MG Tablet 650 MG PO ×4 (02:48→21:08)
[2021-12-24] MEDS: Heparin Injection (Vial) 5,000 UNIT/ML VIAL 5000 UNIT SC (05:13)
[2021-12-24 05:28] LABS: Absolute Lymphocyte Count 1.17 X10^3/uL (0.83-4.51); Basophil# 0.01 X10^3/uL; Basophil% 0.1 % (0-1); Eosinophil# 0.11 X10^3/uL; Eosinophils% 1.1 % (0-5); Hematocrit 28.2 % (40-54); Hemoglobin 8.9 g/dL (13.0-16.5); Lymphocyte # 1.17 X10^3/ul (0.83-4.51); Lymphocyte % 11.3 % (19-41); Mean Corp Hgb Conc 31.6 g/dL (32-36); Mean Corpuscular Hgb 23.4 pg (27.0-32.0); Mean Corpuscular Volume 74.2 fL (80-94); Mean Platelet Vol. 9.2 fl (6.2-12.0); Monocyte# 0.91 X10^3/uL; Monocyte% 8.8 % (0-10); NRBC Flagged by Analyzer 0 % (0-5); Neutrophil # 8.03 X10^3/uL (2.7-7.7); Neutrophil % 77.9 % (47-70); Platelet Count 409 K/mm3 (150-450); RBC Distribution Width CV 18.5 % (11.6-14.6); RBC Distribution Width SD 49.4 fl (35.1-43.9); White Blood Count 10.3 K/mm3 (4.4-11.0)
[2021-12-24 05:49] LABS: ALB/GLOB Ratio 0.5 RATIO (0.9-2.4); AST(SGOT) 36 U/L (15-37); Alanine Aminotransfer ALT/SGPT 24 U/L (16-61); Albumin, Serum 2.3 g/dL (3.2-5.0); Alkaline Phosphatase 63 U/L (45-117); Anion Gap 8 (5-15); BUN 18 mg/dL (7-18); BUN/Creat Ratio 14.4 RATIO (10-20); Calcium,Total 8.7 mg/dL (8.5-10.1); Chloride 103 mmol/L (98-107); Creatinine, Serum 1.25 mg/dL (0.70-1.30); EST Glomerular Filtration Rate 62 mL/min (>60); Est Glom Filt Rate - Afr Amer 74 mL/min (>60); Estimated Creatinine Clearance 53.17 ml/min; Globulin 4.6 g/dL (2.2-4.2); Glucose 150 mg/dL (74-106); Potassium 3.4 mmol/L (3.5-5.1); Protein, Total 6.9 g/dL (6.4-8.2); Sodium Level 137 mmol/L (136-145)
--- NOTE | 2021-12-24 06:22 | EKG12_ITS ---
Test Reason : RHYTHM CHANGE Blood Pressure : / mmHG Vent. Rate : 109 BPM Atrial Rate : 109 BPM P-R Int : 114 ms QRS Dur : 096 ms QT Int : 354 ms P-R-T Axes : 006 062 009 degrees QTc Int : 476 ms Somatic/Motion Artifact Sinus tachycardia Low voltage QRS (Limb Leads) Confirmed by ANKIT LAWSON, SURESH ([id number]), avid editor YANELIS ZEPEDA ([id number]) on 12/30/2021 1:09:58 PM Referred By: Confirmed By:SURESH PHAM MD
[2021-12-24] MEDS: Potassium Chloride Oral Tablet 20 MEQ 40 MEQ PO (06:40)
[2021-12-24 06:56] LABS: Bedside Glucose 147 mg/dL (74-106)
[2021-12-24] MEDS: Gabapentin 300 MG Capsule PO ×2 (07:49→11:52)
[2021-12-24] MEDS: Juven (unflavored) Packet 1 PACKET PO ×2 (07:50→17:30)
[2021-12-24] MEDS: ICOSAPENT ETHYL 1 GM CAPSULE 2 GM PO ×2 (07:50→17:30)
[2021-12-24] MEDS: Metoprolol Tartrate 25 MG Tablet PO ×2 (07:52→21:07)
[2021-12-24] MEDS: buPROPion (SR) 150 MG Tablet.SA PO ×2 (07:52→21:05)
[2021-12-24] MEDS: Cilostazol 50 MG Tablet 100 MG PO ×2 (07:53→21:06)
[2021-12-24] MEDS: Pantoprazole Sodium 40 MG Tablet PO (07:54)
[2021-12-24] MEDS: Fenofibrate 145 MG Tablet PO (07:54)
--- NOTE | 2021-12-24 08:29 | PCM.PN.INT ---
Assessment & Plan Assessment/Plan (1) Acute respiratory failure with hypoxia: (2) PAOD (peripheral arterial occlusive disease): PLAN: Plan RECOMMENDATIONS: 1. Continue bronchodilator therapy 2. Encourage incentive spirometer/pulmonary recruitment measures 3. Limit narcotics as much as possible 4. Outpatient complete PFT and sleep study 5. Daily Lasix as renal function allows 6. Continue BiPAP with sleep and as needed IMPRESSIONS: 1. Acute hypoxic respiratory failure Clinical suspicion for multifactorial etiology. Patient carries a diagnosis of COPD, but this has not been verified previously. Patient does not appear to be in acute exacerbation of COPD, so initiation of bronchodilator therapy is likely reasonable. Would not recommend steroids as this will decrease wound healing. Patient has done better with pulmonary recruitment measures. Patient does have a history of diastolic dysfunction and may have had an element of pulmonary edema. We will continue to administer diuretics as tolerated. Renal function slightly improved today. Limiting narcotics would be of good utility, but obviously it is difficult given patient's presenting situation. Outpatient complete pulmonary function test for quantification clarification of lung function along with a sleep study would be appropriate. Patient was provided some education on the appropriate use of supplemental oxygen. Lack of compliance with supplemental oxygen may be leading to elevated pulmonary artery pressures and right ventricular dysfunction 2. Peripheral vascular disease/CAD status post CABG and PCI with left lower extremity amputation Patient appears to have tolerated amputation well. Will defer to vascular surgery. No steroids will be given as this will decrease wound healing and patient is already at risk given his peripheral vascular disease. 3. CKD stage IIIa/diabetes mellitus type 2/hypertension/obesity Complicates care, management, recovery and prognosis. Patient would be at risk for obstructive sleep apnea given age, male sex, BMI and need for narcotics. Patient on sliding scale insulin. Patient was verified is a full code, but need for intubation is unlikely at this time. Okay to keep on PCU Subjective Subjective Patient did okay overnight. Patient did wear BiPAP with sleep, but is back on nasal cannula this morning. Patient did have an episode of desaturation requiring increased to 8 L/min. Patient states he continues to have pain of the same intensity, but states it is becoming more intermittent. Patient does report shortness of breath with minimal exertion. Objective Data Objective Data Patient did have episodes of ectopy overnight. Metoprolol was held secondary to hypotension in the evening. Vital Signs: Vital Signs Temp Pulse Resp BP Pulse Ox O2 Del Method O2 Flow Rate 37.2 C 117 H 18 117/57 L 91 Nasal Cannula 8 12/24/21 07:44 12/24/21 07:52 12/24/21 07:44 12/24/21 07:52 12/24/21 07:44 12/24/21 07:44 12/24/21 07:44 FiO2 30 12/24/21 06:00 Oxygen Flow Rate (L/min) 8 Oxygen Delivery Method Nasal Cannula Weight: 101 kg Body Mass Index (BMI) 35.9 Intake & Output: Intake and Output for Last 24 Hours 12/22/21 12/23/21 12/24/21 23:59 23:59 23:59 Intake Total 2284.22 / 2284.22 700 / 700 120 / 120 Output Total 2200 / 2200 1900 / 1900 550 / 550 Balance 84.22 / 84.22 -1200 / -1200 -430 / -430 Lab / Micro Data Attestation: I reviewed the patient's lab results. Result Diagrams: 12/24/21 05:02 12/24/21 05:02 Labs: Laboratory Results - last 24 hr 12/23/21 12:17: POC Glucose 202 H 12/23/21 16:36: POC Glucose 178 H 12/23/21 21:06: POC Glucose 138 H 12/24/21 05:02: WBC 10.3, RBC 3.80 L, Hgb 8.9 L, Hct 28.2 L, MCV 74.2 L, MCH 23.4 L, MCHC 31.6 L, RDW Std Deviation 49.4 H, RDW Coeff of Amaris 18.5 H, Plt Count 409, MPV 9.2, Immature Gran % (Auto) 0.800, Neut % (Auto) 77.9 H, Lymph % (Auto) 11.3 L, [place] % (Auto) 8.8, Eos % (Auto) 1.1, Baso % (Auto) 0.1, Absolute Neuts (auto) 8.0 H, Absolute Lymphs (auto) 1.17, Nucleated RBC % 0 12/24/21 05:02: Sodium 137, Potassium 3.4 L, Chloride 103, Carbon Dioxide 26.0, Anion Gap 8, BUN 18, Creatinine 1.25, Estim Creat Clear Calc 53.17, Est GFR (MDRD) Af Amer 74, Est GFR (MDRD) Non-Af 62, BUN/Creatinine Ratio 14.4, Glucose 150 H, Calcium 8.7, Total Bilirubin 0.60, AST 36, ALT 24, Alkaline Phosphatase 63, Total Protein 6.9, Albumin 2.3 L, Globulin 4.6 H, Albumin/Globulin Ratio 0.5 L 12/24/21 06:36: POC Glucose 147 H Physical Exam Const alert, oriented x3 and no apparent distress Constitutional Narrative: Occasional grimace. Incentive spirometer within reach General Appearance: cooperative HEENT head/scalp atraumatic and moist oral mucous membranes Head and Scalp: normocephalic Eyes conjunctivae normal and no scleral icterus Neck no lymphadenopathy and supple Chest Chest: abnormal inspection of the chest increased A-P diameter Resp normal respiratory effort Auscultation: diminished lung sounds; Negative for rales, rhonchi or wheezes Cardio regular rate, regular rhythm, S1 normal heart sound, S2 normal heart sound, no murmurs, no rub and no gallops GI normal to inspection, nondistended, normoactive bowel sounds, soft to palpation and non-tender Extremity normal to inspection and full ROM General Extremity: amputation Skin Skin Narrative: Dressing in place. Wound not addressed. Neuro oriented x3, moves all extremities and no focal motor deficits Sensorium / Orientation: awake and alert Psych cooperative Mood & Affect: anxious Charges/Coding Visit Charges Inpatient E&M: 15021 Subs Hosp L3
--- NOTE | 2021-12-24 08:33 | PCM.PN.SRG ---
Subjective Subjective Sleeping but arousable, slightly confused. O2 needs increased overnight. Objective Data Objective Data Vital Signs: Vital Signs Temp Pulse Resp BP Pulse Ox O2 Del Method O2 Flow Rate 98.9 F 117 H 18 117/57 L 91 Nasal Cannula 8 12/24/21 07:44 12/24/21 07:52 12/24/21 07:44 12/24/21 07:52 12/24/21 07:44 12/24/21 07:44 12/24/21 07:44 FiO2 30 12/24/21 06:00 Oxygen Flow Rate (L/min) 8 Oxygen Delivery Method Nasal Cannula Weight: 222 lb 10.67 oz Body Mass Index (BMI) 35.9 Intake & Output: Intake and Output for Last 24 Hours 12/22/21 12/23/21 12/24/21 23:59 23:59 23:59 Intake Total 2284.22 / 2284.22 700 / 700 120 / 120 Output Total 2200 / 2200 1900 / 1900 550 / 550 Balance 84.22 / 84.22 -1200 / -1200 -430 / -430 Lab / Micro Data Result Diagrams: 12/24/21 05:02 12/24/21 05:02 Labs: Laboratory Results - last 24 hr 12/23/21 12:17: POC Glucose 202 H 12/23/21 16:36: POC Glucose 178 H 12/23/21 21:06: POC Glucose 138 H 12/24/21 05:02: WBC 10.3, RBC 3.80 L, Hgb 8.9 L, Hct 28.2 L, MCV 74.2 L, MCH 23.4 L, MCHC 31.6 L, RDW Std Deviation 49.4 H, RDW Coeff of Amaris 18.5 H, Plt Count 409, MPV 9.2, Immature Gran % (Auto) 0.800, Neut % (Auto) 77.9 H, Lymph % (Auto) 11.3 L, [place] % (Auto) 8.8, Eos % (Auto) 1.1, Baso % (Auto) 0.1, Absolute Neuts (auto) 8.0 H, Absolute Lymphs (auto) 1.17, Nucleated RBC % 0 12/24/21 05:02: Sodium 137, Potassium 3.4 L, Chloride 103, Carbon Dioxide 26.0, Anion Gap 8, BUN 18, Creatinine 1.25, Estim Creat Clear Calc 53.17, Est GFR (MDRD) Af Amer 74, Est GFR (MDRD) Non-Af 62, BUN/Creatinine Ratio 14.4, Glucose 150 H, Calcium 8.7, Total Bilirubin 0.60, AST 36, ALT 24, Alkaline Phosphatase 63, Total Protein 6.9, Albumin 2.3 L, Globulin 4.6 H, Albumin/Globulin Ratio 0.5 L 12/24/21 06:36: POC Glucose 147 H Physical Exam Const alert and no apparent distress General Appearance: cooperative; Negative for combative or lethargic Orientation / Consciousness: awake HEENT Head and Scalp: normocephalic and atraumatic Neck General: trachea midline Resp normal respiratory effort and no use of accessory muscles Effort and Inspection: Negative for labored, stridor or audible wheezes Cardio regular rhythm Rate: tachycardic Extremity no clubbing, cyanosis or edema Skin no rashes or lesions noted and no wounds Wounds: amputation other dressing intact, no bleed through Neuro no focal motor deficits and no sensory deficits noted Psych thought process normal, cooperative, affect normal, speech normal and activity/motor behavior normal Assessment & Plan Assessment/Plan (1) PAOD (peripheral arterial occlusive disease): PLAN: -POD #2 left BKA -hgb stable, dressing dry; will resume heparin today -cr back down, good uop; may benefit from further gentle diuresis -cont O2 needs; was on 5L when he arrived from outside hospital; -may need home O2 upon DC -plan dressing down tomorrow, dc plan hopefully home when medically fit
[2021-12-24] MEDS: oxyCODONE 5 MG Tablet PO ×2 (09:54→17:42)
[2021-12-24] MEDS: Bisacodyl 5 MG Tablet 10 MG PO (09:54)
[2021-12-24] MEDS: 0.9% Saline Lock 10 ML Syringe IV (09:55)
[2021-12-24] MEDS: Furosemide 40 MG/4 ML Vial IV (09:56)
[2021-12-24 10:16] LABS: International Normalized Ratio 1.2; Prothrombin Time (Protime)PT. 14.9 SECONDS (11.7-14.9)
[2021-12-24 10:17] LABS: Partial Thromboplast Time 42.7 Seconds (24.1-36.2)
[2021-12-24] MEDS: HEPARIN/D5w 25,000 UNITS 25,000 UNITS/250 ML IV.SOLN. 14 UNITS CONT INF (11:04)
[2021-12-24] MEDS: Insulin Lispro 100 UNIT/ML INSULN.PEN SC ×3 (11:55→21:08)
--- NOTE | 2021-12-24 12:09 | PCM.PN.HOSP ---
Documented by User: JAMIE Greenfield 12/24/21 12:12 Subjective Subjective Patient seen and examined. Patient sitting in bed no distress noted, at bedside. Objective Data Objective Data Vital Signs: Vital Signs Temp Pulse Resp BP Pulse Ox O2 Del Method O2 Flow Rate 98 F 95 16 103/57 L 97 Nasal Cannula 8 12/24/21 10:01 12/24/21 10:01 12/24/21 10:01 12/24/21 10:01 12/24/21 10:01 12/24/21 10:01 12/24/21 10:01 FiO2 30 12/24/21 06:00 Oxygen Flow Rate (L/min) 8 Oxygen Delivery Method Nasal Cannula Weight: 222 lb 10.67 oz Body Mass Index (BMI) 35.9 Intake & Output: Intake and Output for Last 24 Hours 12/22/21 12/23/21 12/24/21 23:59 23:59 23:59 Intake Total 2284.22 / 2284.22 700 / 700 120 / 120 Output Total 2200 / 2200 1900 / 1900 550 / 550 Balance 84.22 / 84.22 -1200 / -1200 -430 / -430 Lab / Micro Data Result Diagrams: 12/24/21 05:02 12/24/21 05:02 Labs: Laboratory Results - last 24 hr 12/21/21 09:35: Crossmatch See Detail 12/23/21 12:17: POC Glucose 202 H 12/23/21 16:36: POC Glucose 178 H 12/23/21 21:06: POC Glucose 138 H 12/24/21 05:02: WBC 10.3, RBC 3.80 L, Hgb 8.9 L, Hct 28.2 L, MCV 74.2 L, MCH 23.4 L, MCHC 31.6 L, RDW Std Deviation 49.4 H, RDW Coeff of Amaris 18.5 H, Plt Count 409, MPV 9.2, Immature Gran % (Auto) 0.800, Neut % (Auto) 77.9 H, Lymph % (Auto) 11.3 L, [place] % (Auto) 8.8, Eos % (Auto) 1.1, Baso % (Auto) 0.1, Absolute Neuts (auto) 8.0 H, Absolute Lymphs (auto) 1.17, Nucleated RBC % 0 12/24/21 05:02: Sodium 137, Potassium 3.4 L, Chloride 103, Carbon Dioxide 26.0, Anion Gap 8, BUN 18, Creatinine 1.25, Estim Creat Clear Calc 53.17, Est GFR (MDRD) Af Amer 74, Est GFR (MDRD) Non-Af 62, BUN/Creatinine Ratio 14.4, Glucose 150 H, Calcium 8.7, Total Bilirubin 0.60, AST 36, ALT 24, Alkaline Phosphatase 63, Total Protein 6.9, Albumin 2.3 L, Globulin 4.6 H, Albumin/Globulin Ratio 0.5 L 12/24/21 06:36: POC Glucose 147 H 12/24/21 09:57: PT 14.9, INR 1.2, APTT 42.7 H Physical Exam Const alert, oriented x3 and no apparent distress HEENT normocephalic, head/scalp atraumatic and moist oral mucous membranes Eyes conjunctivae normal and no scleral icterus Neck no lymphadenopathy and supple General: trachea midline Chest inspection of chest normal and palpation of chest normal Resp normal respiratory effort and clear to auscultation bilaterally Effort and Inspection: symmetric chest movement and tachypneic Auscultation: crackles bilateral base and diminished lung sounds bilateral throughout Cardio regular rate, regular rhythm, S1 normal heart sound, S2 normal heart sound and peripheral pulses 2+ throughout Rate: tachycardic GI normal to inspection, nondistended, normoactive bowel sounds, soft to palpation and non-tender Extremity normal to inspection and full ROM Neuro oriented x3, moves all extremities and no focal motor deficits Speech: speech normal Psych affect normal Assessment & Plan Assessment/Plan (1) PAOD (peripheral arterial occlusive disease): PLAN: Plan 1. Peripheral artery disease with nonhealing left lower extremity ulcer -Patient has had multiple arteriograms and failed angioplasty, last angioplasty done 12/18/2021 with failed attempted revascularization. No flow to the foot despite a patent popliteal, tibial peroneal trunk and [employer]. 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 Patient slightly confused following surgery but this has improved overnight. -PT and OT following 2. CAD status post CABG and PCI -Aspirin on hold for surgery 3. Chronic respiratory failure due to COPD and chronic heart failure with preserved EF -currently on 8 L nasal cannula with an O2 sat of 96%. Continue to wean as tolerated -Continue as needed breathing treatments, scheduled DuoNeb nebulizer treatments added by Dr. Healy today -Pulmonary following 4. CKD stage IIIa -Stable, creatinine at baseline -BMP daily 5. Diabetes mellitus type 2 -ACH S blood sugars with sliding scale insulin ordered -Jardiance and metformin on hold 6. Hypertension -Continue metoprolol lisinopril -Vital signs per protocol, currently stable DVT prophylaxis-not indicated, currently on heparin drip This patient was seen by Maryjane No NP-C under the supervision of Dr. Guzman. 12 minutes spent in clinical coordination of patient's plan of care. Documented by User: Dr. Susanne Guzman MD 12/24/21 14:24 Objective Data Lab / Micro Data Result Diagrams: 12/24/21 05:02 12/24/21 05:02 Assessment & Plan Assessment/Plan (1) PAOD (peripheral arterial occlusive disease): Charges/Coding Addendum Addendum: This patient was seen in conjunction with Ketan No NP.? I have independently interviewed and examined the patient and reviewed pertinent historical, laboratory, and other data. I have reviewed her note and concur with her documentation Patient was seen and examined.? Patient remains intermittently confused. He is on 8 L of oxygen. An extra dose of Lasix 40 mg IV x1 was given. Physical Exam: Gen: Comfortable, not pale, not jaundiced, on 8 L of oxygen, CVS:HS I +II, regular, no murmurs RESP: Diminished at lung bases GI: BS present and normal, soft, nontender, no palpable organs EXT:No edema ASSESSMENT: 1.? PAD 2.? Chronic nonhealing left lower extremity ulcer 3.? CAD status post CABG and PCI 4.? Chronic heart failure with preserved EF 5.? CKD stage IIIa 6.? History of lung CA 7.? Type II DM 8.? Hypertension 9.? Hyperlipidemia 10.? Chronic hypoxic respiratory failure Plan: Continue with breathing treatments Encourage use of incentive spirometer Discontinue Benadryl, decrease gabapentin to 200 to see if that helps with her cognition Continue with pain control PT/OT to evaluate and treat Repeat blood work in a.m. Time spent coordinating all aspects of patient's care, discussing with nursin minutes Visit Charges Inpatient E&M: 18374 Subs Hosp L2
[2021-12-24 12:20] LABS: Bedside Glucose 161 mg/dL (74-106)
--- NOTE | 2021-12-24 13:37 | CASEMGMT ---
Addendum entered by Ashley Hernandez 12/24/21 14:10: RN RUTH received call back from José at [facility] and they are able to accept the patient. RN CM updated patient and . Original Note: RN CM in to discuss discharge planning with patient and . Patient and are wanting to discharge home with [facility]. Patient states he prefers [facility] as he has had them in the past. Patient is currently on oxygen, will monitor for need at home health. states they prefer [facility] for DME. Referral sent to [facility] and awaiting acceptance. CM will continue to follow this patient and plan for a safe discharge.
[2021-12-24] MEDS: Gabapentin 100 MG Capsule 200 MG PO (17:38)
[2021-12-24 17:50] LABS: Bedside Glucose 191 mg/dL (74-106)
[2021-12-24 19:45] LABS: Partial Thromboplast Time 65.5 Seconds (24.1-36.2)
[2021-12-24] MEDS: Atorvastatin Calcium 80 MG Tablet PO (21:06)
[2021-12-24 23:36] LABS: Bedside Glucose 159 mg/dL (74-106)
[2021-12-25] VITALS (10 sets, daily range): BP systolic 105–118; BP diastolic 41–85; PULSE 98–106; RESP 14–20; TEMP 36.6–36.7; O2SAT 86–97
[2021-12-25 01:40] LABS: Partial Thromboplast Time 47.2 Seconds (24.1-36.2)
[2021-12-25] MEDS: HEPARIN/D5w 25,000 UNITS 25,000 UNITS/250 ML IV.SOLN. 15 UNITS CONT INF (03:37)
[2021-12-25] MEDS: Acetaminophen 325 MG Tablet 650 MG PO ×3 (03:37→14:10)
--- NOTE | 2021-12-25 06:55 | PN.CC_ITS ---
Assessment & Plan Assessment/Plan (1) Acute respiratory failure with hypoxia: (2) PAOD (peripheral arterial occlusive disease): PLAN: Plan RECOMMENDATIONS: 1. Continue bronchodilator therapy 2. Encourage incentive spirometer/pulmonary recruitment measures 3. Limit narcotics as much as possible 4. Outpatient complete PFT and sleep study 5. Daily Lasix as renal function allows 6. Okay to proceed with discharge planning IMPRESSIONS: 1. Acute hypoxic respiratory failure Patient appears to be approaching baseline. Clinical suspicion for multifactorial etiology. Patient carries a diagnosis of COPD, but this has not been verified previously. Patient does not appear to be in acute exacerbation of COPD, so initiation of bronchodilator therapy is likely reasonable. Would not recommend steroids as this will decrease wound healing. Patient has done better with pulmonary recruitment measures. Patient does have a history of diastolic dysfunction and may have had an element of pulmonary edema. We will continue to administer diuretics as tolerated. Limiting narcotics would be of good utility, but obviously it is difficult given patient's presenting situation. Outpatient complete pulmonary function test for quantification clarification of lung function along with a sleep study would be appropriate. P atient was provided some education on the appropriate use of supplemental oxygen. Lack of compliance with supplemental oxygen may be leading to elevated pulmonary artery pressures and right ventricular dysfunction. Continue to stress the appropriate use of supplemental oxygen. 2. Peripheral vascular disease/CAD status post CABG and PCI with left lower extremity amputation Patient appears to have tolerated amputation well. Will defer to vascular surgery. No steroids will be given as this will decrease wound healing and patient is already at risk given his peripheral vascular disease. 3. CKD stage IIIa/diabetes mellitus type 2/hypertension/obesity Complicates care, management, recovery and prognosis. Patient would be at risk for obstructive sleep apnea given age, male sex, BMI and need for narcotics. Patient on sliding scale insulin. Patient was verified is a full code, but need for intubation is unlikely at this time. Okay to proceed with discharge planning from a pulmonary perspective. Additional work-up as an outp atient could be completed if requested. Subjective Subjective Patient did well overnight. No acute issues were reported. Patient subjectively continues to struggle with pain, but states his respiratory status is improved. Patient did wear his CPAP briefly overnight. Objective Data Objective Data Vital Signs: Vital Signs Temp Pulse Resp BP Pulse Ox O2 Del Method O2 Flow Rate 36.6 C 98 14 107/67 94 Nasal Cannula 4 12/25/21 06:27 12/25/21 06:27 12/25/21 06:27 12/25/21 06:27 12/25/21 06:29 12/25/21 06:29 12/25/21 06:29 FiO2 30 12/25/21 02:20 Oxygen Flow Rate (L/min) 4 Oxygen Delivery Method Nasal Cannula Weight: 101 kg Body Mass Index (BMI) 35.9 Intake & Output: Intake and Output for Last 24 Hours 12/23/21 12/24/21 12/25/21 23:59 23:59 23:59 Intake Total 700 / 700 1145 / 1145 233.57 / 233.57 Output Total 1900 / 1900 2575 / 2575 400 / 400 Balance -1200 / -1200 -1430 / -1430 -166.43 / -166.43 Lab / Micro Data Attestation: I reviewed the patient's lab results. Result Diagrams: 12/24/21 05:02 12/24/21 05:02 Labs: Laboratory Results - last 24 hr 12/21/21 09:35: Crossmatch See Detail 12/24/21 06:36: POC Glucose 147 H 12/24/21 09:57: PT 14.9, INR 1.2, APTT 42.7 H 12/24/21 11:54: POC Glucose 161 H 12/24/21 17:29: POC Glucose 191 H 12/24/21 19:10: APTT 65.5 H 12/24/21 21:03: POC Glucose 159 H 12/25/21 01:15: APTT 47.2 H Physical Exam Const alert, oriented x3 and no apparent distress Constitutional Narrative: Occasional grimace. Incentive spirometer within reach General Appearance: cooperative HEENT head/scalp atraumatic and moist oral mucous membranes Head and Scalp: normocephalic Eyes conjunctivae normal and no scleral icterus Neck no lymphadenopathy and supple Chest Chest: abnormal inspection of the chest increased A-P diameter Resp normal respiratory effort Auscultation: diminished lung sounds; Negative for rales, rhonchi or wheezes Cardio regular rate, regular rhythm, S1 normal heart sound, S2 normal heart sound, no murmurs, no rub and no gallops GI normal to inspection, nondistended, normoactive bowel sounds, soft to palpation and non-tender Extremity normal to inspection and full ROM General Extremity: amputation Skin Skin Narrative: Dressing in place. Wound not addressed. Neuro oriented x3, moves all extremities and no focal motor deficits Sensorium / Orientation: awake and alert Psych cooperative Mood & Affect: anxious Charges/Coding Visit Charges Inpatient E&M: 75143 Subs Hosp L2
[2021-12-25 07:20] LABS: Bedside Glucose 141 mg/dL (74-106)
[2021-12-25] MEDS: Juven (unflavored) Packet 1 PACKET PO (08:07)
[2021-12-25] MEDS: Gabapentin 100 MG Capsule 200 MG PO ×2 (08:08→12:14)
[2021-12-25] MEDS: ICOSAPENT ETHYL 1 GM CAPSULE 2 GM PO (08:09)
[2021-12-25 08:19] LABS: Absolute Lymphocyte Count 1.78 X10^3/uL (0.83-4.51); Absolute Neutrophil Count 8.2 X10^3/uL (2.0-7.7); Basophil# 0.02 X10^3/uL; Basophil% 0.2 % (0-1); Eosinophil# 0.11 X10^3/uL; Hematocrit 27.7 % (40-54); Hemoglobin 8.9 g/dL (13.0-16.5); Lymphocyte # 1.78 X10^3/ul (0.83-4.51); Lymphocyte % 16.2 % (19-41); Mean Corp Hgb Conc 32.1 g/dL (32-36); Mean Corpuscular Hgb 24.2 pg (27.0-32.0); Mean Corpuscular Volume 75.3 fL (80-94); Mean Platelet Vol. 9.1 fl (6.2-12.0); Monocyte# 0.82 X10^3/uL; Monocyte% 7.5 % (0-10); NRBC Flagged by Analyzer 0 % (0-5); Neutrophil # 8.15 X10^3/uL (2.7-7.7); Neutrophil % 74.3 % (47-70); Platelet Count 421 K/mm3 (150-450); RBC Distribution Width CV 18.6 % (11.6-14.6); RBC Distribution Width SD 51.7 fl (35.1-43.9); Red Blood Count 3.68 M/mm3 (4.6-6.2)
[2021-12-25 08:29] LABS: Partial Thromboplast Time 51.9 Seconds (24.1-36.2)
[2021-12-25 08:43] LABS: ALB/GLOB Ratio 0.5 RATIO (0.9-2.4); AST(SGOT) 37 U/L (15-37); Alanine Aminotransfer ALT/SGPT 25 U/L (16-61); Albumin, Serum 2.2 g/dL (3.2-5.0); Alkaline Phosphatase 65 U/L (45-117); Anion Gap 7 (5-15); BUN 19 mg/dL (7-18); BUN/Creat Ratio 14.4 RATIO (10-20); Calcium,Total 9.1 mg/dL (8.5-10.1); Chloride 104 mmol/L (98-107); Creatinine, Serum 1.32 mg/dL (0.70-1.30); EST Glomerular Filtration Rate 58 mL/min (>60); Est Glom Filt Rate - Afr Amer 70 mL/min (>60); Estimated Creatinine Clearance 50.35 ml/min; Globulin 4.5 g/dL (2.2-4.2); Glucose 138 mg/dL (74-106); Potassium 3.6 mmol/L (3.5-5.1); Protein, Total 6.7 g/dL (6.4-8.2); Sodium Level 137 mmol/L (136-145)
[2021-12-25] MEDS: Metoprolol Tartrate 25 MG Tablet PO (10:11)
[2021-12-25] MEDS: Fenofibrate 145 MG Tablet PO (10:11)
[2021-12-25] MEDS: Pantoprazole Sodium 40 MG Tablet PO (10:11)
[2021-12-25] MEDS: Cilostazol 50 MG Tablet 100 MG PO (10:11)
[2021-12-25] MEDS: buPROPion (SR) 150 MG Tablet.SA PO (10:12)
--- NOTE | 2021-12-25 10:40 | CASEMGMT ---
Addendum entered by Ashley Marin 12/25/21 13:40: Message left again with José at [facility] in regards to acceptance and d/c today, awaiting a call back. Romna HARPER CM Addendum entered by Ashley Marin 12/25/21 13:04: D/C summary obtained and faxed to [facility] and [facility]. Call to [facility] and message left to notify regarding D/C and tank to be delivered. Call to [facility] to notify of pt discharge and they state no info in system. Referral re-faxed to [facility]. CM to follow. Roman HARPER CM Addendum entered by Ashley Marin 12/25/21 11:48: aware that pt will need continuous home oxygen at discharge and before list provided, pt states 'We want to use [employer] in [place], we have used them before.' declines further list. Pt qualifies for 2L continuous and order faxed to [facility] with testing. Noted on fax cover sheet that pt discharging today and will need tank delivered to hospital. F2F to be faxed once obtained. CM to follow. Roman HARPER CM Original Note: Per , pt sees Alison Siegel at [facility] in [place] for PCP and states that pt has a concentrator at home that they own and pt uses prn, but does not have portability. Pt is currently on 2L nc and Leanne HARPER aware to test on room air. Per Amrita HARPER CM, pt was accepted by [facility] yesterday. Message left with José at [facility] regarding pt PCP and that pt to d/c today. CM to follow for any further discharge planning/needs. Roman HARPER CM
[2021-12-25] MEDS: 0.9% Saline Lock 10 ML Syringe IV ×2 (10:41→13:29)
[2021-12-25] MEDS: Furosemide 40 MG/4 ML Vial IV (10:41)
--- NOTE | 2021-12-25 10:48 | PCM.PN.HOSP ---
Subjective Subjective Follow-up on severe PAD/status post amputation/hypoxia: Patient seen and examined. He is intermittently confused. Oxygen requirements decreased to 3 L this morning. No acute events overnight. Objective Data Objective Data Vital Signs: Vital Signs Temp Pulse Resp BP Pulse Ox O2 Del Method O2 Flow Rate 98.0 F 101 H 20 H 118/41 L 95 Nasal Cannula 3 12/25/21 10:05 12/25/21 10:11 12/25/21 10:05 12/25/21 10:05 12/25/21 10:05 12/25/21 10:05 12/25/21 10:05 FiO2 30 12/25/21 02:20 Oxygen Flow Rate (L/min) 3 Oxygen Delivery Method Nasal Cannula Weight: 101 kg Body Mass Index (BMI) 35.9 Intake & Output: Intake and Output for Last 24 Hours 12/23/21 12/24/21 12/25/21 23:59 23:59 23:59 Intake Total 700 / 700 1145 / 1145 317.57 / 317.57 Output Total 1900 / 1900 2575 / 2575 400 / 400 Balance -1200 / -1200 -1430 / -1430 -82.43 / -82.43 Lab / Micro Data Result Diagrams: 12/25/21 07:58 12/25/21 07:58 Labs: Laboratory Results - last 24 hr 12/24/21 11:54: POC Glucose 161 H 12/24/21 17:29: POC Glucose 191 H 12/24/21 19:10: APTT 65.5 H 12/24/21 21:03: POC Glucose 159 H 12/25/21 01:15: APTT 47.2 H 12/25/21 06:26: POC Glucose 141 H 12/25/21 07:58: WBC 11.0, RBC 3.68 L, Hgb 8.9 L, Hct 27.7 L, MCV 75.3 L, MCH 24.2 L, MCHC 32.1, RDW Std Deviation 51.7 H, RDW Coeff of Amaris 18.6 H, Plt Count 421, MPV 9.1, Immature Gran % (Auto) 0.800, Neut % (Auto) 74.3 H, Lymph % (Auto) 16.2 L, [place] % (Auto) 7.5, Eos % (Auto) 1.0, Baso % (Auto) 0.2, Absolute Neuts (auto) 8.2 H, Absolute Lymphs (auto) 1.78, Nucleated RBC % 0 12/25/21 07:58: Sodium 137, Potassium 3.6, Chloride 104, Carbon Dioxide 26.0, Anion Gap 7, BUN 19 H, Creatinine 1.32 H, Estim Creat Clear Calc 50.35, Est GFR (MDRD) Af Amer 70, Est GFR (MDRD) Non-Af 58 L, BUN/Creatinine Ratio 14.4, Glucose 138 H, Calcium 9.1, Total Bilirubin 0.50, AST 37, ALT 25, Alkaline Phosphatase 65, Total Protein 6.7, Albumin 2.2 L, Globulin 4.5 H, Albumin/Globulin Ratio 0.5 L 12/25/21 07:58: APTT 51.9 H Physical Exam Narrative Physical exam: General: Alert, Oriented x intermittently confused, on 3 L of oxygen HEENT: Atraumatic Oral: Moist Mucosa Neck: Supple Lungs: Diminished to auscultation Cardiovascular: HS I+II, regular, no murmurs Abdomen: Bowel Sounds Present, Soft, Non Tender Extremities: Left BKA, dressing slightly soaked Skin: No rashes, No breakdown Neurological: Grossly intact Psych/Mental Status: Appropriate Assessment & Plan Assessment/Plan (1) Acute respiratory failure with hypoxia: (2) PAOD (peripheral arterial occlusive disease): PLAN: Plan 1.? Postop day #3 status post left BKA 2. Severe PAD with chronic nonhealing left lower leg ulcer 3.? CAD status post CABG and PCI 4.? Chronic heart failure with preserved EF 5.? CKD stage IIIa 6.? History of lung CA 7.? Type II DM 8.? Hypertension 9.? Hyperlipidemia 10.?Acute on chronic Chronic hypoxic respiratory failure Plan: Continue on 3 L of oxygen Lasix 40 mg IV x1 Continue to use incentive spirometer Discharge planning for home with home health Anticoagulation per vascular surgery Continue metoprolol, fenofibrate Continue on decreased dose of Neurontin 200 mg p.o. 3 times daily for now in the light of lethargy Charges/Coding Visit Charges Inpatient E&M: 55311 Subs Hosp L2
[2021-12-25] MEDS: oxyCODONE 5 MG Tablet PO ×2 (11:33→14:11)
--- NOTE | 2021-12-25 11:56 | DS.PCM_ITS ---
Providers Date of Admission: 12/19/21 Consultations 12/18/21 18:01 Consult: Hospitalist Routine Consulting Provider: Mercedes Cornejo Reason for Consult: medical management EMERGENT Consult: No Notified: Yes Date Notified: 12/18/21 Time Notified: 18:04 Method of Notification: Verbal 12/23/21 07:51 Consult: Pusher Runner / Pulmonary Medicine Routine Consulting Provider: Pulmonary Medicine yan Newcomb Reason for Consult: Acute hypoxic resp failure EMERGENT Consult: No Notified: Yes Date Notified: 12/23/21 Time Notified: 07:52 Method of Notification: Verbal Reason For Visit: ACUTE LEFT LOWER EXTREMITY ISCHEMIA Diagnosis Discharge Diagnosis (1) Acute respiratory failure with hypoxia: Status: Acute Code(s): J96.01 - Acute respiratory failure with hypoxia (2) PAOD (peripheral arterial occlusive disease): Status: Acute Code(s): I77.9 - Disorder of arteries and arterioles, unspecified Plan: -POD #3 left BKA -dressing removed, skin edges healthy and viable, some murky drainage but no purulence, no foul odor, no erythema -eval by [employer] then DC; if Rigid removable device available will place before leaving -Bactrim x 10 days given murky drainage -Pradaxa resumed -DC home with home O2; qualifies for 2L home O2 continueous Medications at Discharge Home Medications atorvastatin 80 mg tablet 80 mg PO QHS Check with primary doctor 12/18/21 bupropion HCl 150 mg tablet,12 hr sustained-release 150 mg PO BID Check with primary doctor 12/18/21 cilostazol 100 mg tablet 100 mg PO BID Check with primary doctor 12/18/21 dabigatran etexilate 150 mg capsule (Pradaxa) 150 mg PO BID Check with primary doctor 12/18/21 empagliflozin 25 mg tablet (Jardiance) 25 mg PO DAILY Check with primary doctor 12/18/21 fenofibrate 160 mg tablet 160 mg PO DAILY Check with primary doctor 12/18/21 icosapent ethyl 1 gram capsule (Vascepa) 2 g PO BID Check with primary doctor 12/18/21 lisinopril 2.5 mg tablet 2.5 mg PO DAILY Check with primary doctor 12/18/21 metformin 500 mg tablet 500 mg PO BID Check with primary doctor 12/18/21 metoprolol tartrate 25 mg tablet 25 mg PO BID Check with primary doctor 12/18/21 pantoprazole 40 mg tablet,delayed release 40 mg PO DAILY Check with primary doctor 12/18/21 prasugrel 10 mg tablet 10 mg PO DAILY Check with primary doctor 12/18/21 gabapentin 100 mg capsule 200 mg PO TIDCM 60 days #360 caps 12/25/21 oxycodone 5 mg tablet 5 mg PO Q4H PRN PRN Pain Score 4-10 14 days #80 tabs 12/25/21 sulfamethoxazole 800 mg-trimethoprim 160 mg tablet 1 tab PO BID 10 days #20 tabs 12/25/21 Hospital Course Operations - (left below knee amputation) Summary of Care Provided Hospital Course: Mr. Camarena was transferred here after valiant efforts at limb salvage at [facility] after recurrent acute ischemia. Unfortunately were unable to obtain adequate outflow to keep major vessels open due to medium and microvascular compromise. It was felt he had adequate perfusion to perform below knee amputation which he underwent 12/22. Overall he tolerated the procedure well, though did have some persistent hypotension and KOTA both of which resolved with observation and gentle hydration. He also had some global volume overload and underlying pulmonary disease that required increased O2 support. He was able to be weaned to 3 L O2 before discharge. His pain control gradually improved, as did his oxygenation and hemodynamic status and he responded well to eventual diuresis. He was evaluated by physical therapy and felt to be appropriate for ongoing outpatient therapy. Home Care and Home O2 were arranged. On POD # 3 the posterior spint dressing was removed which revealed viable healthy skin edges with some murky drainage but no overt infection. It was felt that a short course of PO antibiotic would help avoid any overt infection after discharge so this was initiated. He was then transitioned to his Pradaxa and prepared for discharge on 12/25 after evaluation by [employer]. D ischarged to home 12/25 with Neurontin, Oxy 5 mg, and Bactrim as well as home O2 and Home Care. Physical Exam Const alert, oriented x3, no apparent distress and healthy appearing General Appearance: cooperative; Negative for combative or lethargic Orientation / Consciousness: awake Exam Limitations: no limitations HEENT Head and Scalp: normocephalic and atraumatic Eyes EOMs intact bilaterally General Eye: normal appearance of both eyes Neck full ROM General: trachea midline Resp normal respiratory effort and no use of accessory muscles Effort and Inspection: Negative for labored, stridor or audible wheezes Cardio regular rate and regular rhythm Back/Spine Cervical Spine: cervical ROM normal Extremity normal capillary refill Extremity Narrative: trace knee contracture; limited flexion and extension by pain General Extremity: edema left lower extremity trace (of amputation stump) Skin no rashes or lesions noted and no wounds Wounds: amputation drainage other murky serosanguinous , margins well approximated, No surrounding erythema and other viable , no odor, sutures in place and No surrounding erythema Neuro oriented x3, CN's II-XII intact bilaterally, no focal motor deficits and no sensory deficits noted Psych thought process normal, cooperative, affect normal, speech normal and activity/motor behavior normal Weight / BMI Weight Weight: 222 lb 10.67 oz Body Mass Index (BMI) 35.9 ABG / Lab / Microbiology Data Result Diagrams: 12/25/21 07:58 12/25/21 07:58 Laboratory: Laboratory Results - last 24 hr 12/24/21 11:54: POC Glucose 161 H 12/24/21 17:29: POC Glucose 191 H 12/24/21 19:10: APTT 65.5 H 12/24/21 21:03: POC Glucose 159 H 12/25/21 01:15: APTT 47.2 H 12/25/21 06:26: POC Glucose 141 H 12/25/21 07:58: WBC 11.0, RBC 3.68 L, Hgb 8.9 L, Hct 27.7 L, MCV 75.3 L, MCH 24.2 L, MCHC 32.1, RDW Std Deviation 51.7 H, RDW Coeff of Amaris 18.6 H, Plt Count 421, MPV 9.1, Immature Gran % (Auto) 0.800, Neut % (Auto) 74.3 H, Lymph % (Auto) 16.2 L, [place] % (Auto) 7.5, Eos % (Auto) 1.0, Baso % (Auto) 0.2, Absolute Neuts (auto) 8.2 H, Absolute Lymphs (auto) 1.78, Nucleated RBC % 0 12/25/21 07:58: Sodium 137, Potassium 3.6, Chloride 104, Carbon Dioxide 26.0, Anion Gap 7, BUN 19 H, Creatinine 1.32 H, Estim Creat Clear Calc 50.35, Est GFR (MDRD) Af Amer 70, Est GFR (MDRD) Non-Af 58 L, BUN/Creatinine Ratio 14.4, Glucose 138 H, Calcium 9.1, Total Bilirubin 0.50, AST 37, ALT 25, Alkaline Phosphatase 65, Total Protein 6.7, Albumin 2.2 L, Globulin 4.5 H, Albumin/Globulin Ratio 0.5 L 12/25/21 07:58: APTT 51.9 H Meaningful Use Info Meaningful Use Diagnoses (Choose all that apply): None applicable Discharge Plan Admission Admit Date/Time: 12/19/21 00:43 Primary Reason for Your Visit: occlusion left popliteal artery; amputation left below knee Attending Provider: Jhonathan Reyes Consulting Providers: Jhonathan Reyes ; Susanne Guzman ; Amado Healy ; Alan Matos ; Estelle Dempsey ARTISTIC DIRECTOR Instructions Patient Instructions: Amputation Residual Limb Care Additional Instructions / Restrictions: Follow-up in clinic in 2 weeks. Continue to use your incentive spirometer. Home oxygen as instructed. Patient qualifies for home Oxygen, 2 L rate. Do not submerge incision. May shower if able to keep incision dry. Discharge Orders/Prescriptions Prescriptions: New gabapentin 100 mg Capsule 200 mg PO TIDCM 60 Days Qty: 360 3RF oxycodone 5 mg Tablet 5 mg PO Q4H PRN PRN (Reason: Pain Score 4-10) 14 Days Qty: 80 0RF sulfamethoxazole-trimethoprim 800-160 mg Tablet 1 tab PO BID 10 Days Qty: 20 0RF Continued metformin 500 mg Tablet 500 mg PO BID cilostazol 100 mg Tablet 100 mg PO BID bupropion HCl 150 mg Tablet Sustained-Release 12 Hr 150 mg PO BID atorvastatin 80 mg Tablet 80 mg PO QHS pantoprazole 40 mg Tablet,Delayed Release (Dr/Ec) 40 mg PO DAILY lisinopril 2.5 mg Tablet 2.5 mg PO DAILY metoprolol tartrate 25 mg Tablet 25 mg PO BID fenofibrate 160 mg Tablet 160 mg PO DAILY prasugrel 10 mg Tablet 10 mg PO DAILY dabigatran etexilate [Pradaxa] 150 mg Capsule 150 mg PO BID icosapent ethyl [Vascepa] 1 gram Capsule 2 g PO BID Jardiance 25 mg Tablet 25 mg PO DAILY Referrals / Follow Up: Jhonathan Reyes MD [Med Staff - Active Staff] - (2 weeks) Disposition Disposition (needs filled in before D/C Order can be placed): Home Health Service
[2021-12-25 12:05] LABS: Bedside Glucose 164 mg/dL (74-106)
[2021-12-25] MEDS: Smz/Tmp Ds Tablet 1 TABLET PO (12:15)
[2021-12-25] MEDS: Dabigatran Etexilate Mesylate 150 MG Capsule PO (13:30)
--- NOTE | 2021-12-25 14:08 | CASEMGMT ---
MEREDITH MIRANDA called [facility] to arrange portable tank to be delivered to [facility] for patient to discharge home. Per Jennifer at [facility], they are not able to delivery tank today as they do not have any drivers. MEREDITH MIRANDA updated the patient and , they are agreeable to change DME companies. List reviewed and would like [facility]. MEREDITH MIRANDA sent referral to [facility]. MEREDITH MIRANDA called Dayanara, at [facility], to arrange for equipment to be delivered to patients home. MEREDITH MIRANDA received call from José at [facility] and they are good for patient to discharge and start of care for tomorrow. MEREDITH MIRANDA updated the patient. Patient had no further questions or concerns at this time.
== END 2021-12-25 15:10 | disposition home health service (06) | DRG 240 ==
PROVIDERS: Anesthesiology; Family Medicine; Internal Medicine; Nurse Practitioner Family; Student in an Organized Health Care Education/Training Program; Admitting Provider Surgery Trauma Surgery; Visit Provider Surgery Trauma Surgery
PROC: 0Y6J0Z3 Detachment at Left Lower Leg, Low, Open Approach (ICD-10-PCS; principal; 2021-12-22 13:45)
DX: I74.3 Embolism and thrombosis of arteries of the lower extremities (principal); I13.0 Hypertensive heart and chronic kidney disease with heart failure and stage 1 through stage 4 chronic kidney disease, or unspecified chronic kidney disease; I50.32 Chronic diastolic (congestive) heart failure; L97.829 Non-pressure chronic ulcer of other part of left lower leg with unspecified severity; E11.22 Type 2 diabetes mellitus with diabetic chronic kidney disease; I95.9 Hypotension, unspecified; E11.51 Type 2 diabetes mellitus with diabetic peripheral angiopathy without gangrene; E11.622 Type 2 diabetes mellitus with other skin ulcer; N18.31 Chronic kidney disease, stage 3a; J44.9 Chronic obstructive pulmonary disease, unspecified; E11.42 Type 2 diabetes mellitus with diabetic polyneuropathy; I25.10 Atherosclerotic heart disease of native coronary artery without angina pectoris; E78.5 Hyperlipidemia, unspecified; K21.9 Gastro-esophageal reflux disease without esophagitis; E87.70 Fluid overload, unspecified; F32.A Depression, unspecified; E66.9 Obesity, unspecified; Z68.35 Body mass index [BMI] 35.0-35.9, adult; Z79.82 Long term (current) use of aspirin; Z79.84 Long term (current) use of oral hypoglycemic drugs; Z79.01 Long term (current) use of anticoagulants; Z79.02 Long term (current) use of antithrombotics/antiplatelets; Z85.118 Personal history of other malignant neoplasm of bronchus and lung; Z92.3 Personal history of irradiation; Z87.891 Personal history of nicotine dependence; Z95.1 Presence of aortocoronary bypass graft; Z95.5 Presence of coronary angioplasty implant and graft
CPT/HCPCS: 36415; 36600; 71045; 80048; 80053; 80061; 82803; 82962; 83036; 83735; 83880; 84100; 85025; 85610; 85730; 86850; 86900; 86901; 86920; 86922; 86965; 87641; 88307; 88311; 93005; 94002; 94003; 94640; 94762; 97110; 97162; 97166; 97530; 97802; 97803; J7030; P9035; A4216; J1170; J1940; J2405; J3490

== ENCOUNTER 2022-01-05 15:26 | Observation (INO) | payer MEDICARE, SELFPAY ==
[2022-01-05 13:08] VITALS: BMI 31.4
[2022-01-05 13:15] VITALS: BP 125/64; PULSE 98; RESP 18; TEMP 36.6; O2SAT 98
--- NOTE | 2022-01-05 13:41 | WOUNDNOTE ---
wound photo: left leg
--- NOTE | 2022-01-05 13:41 | WOUNDNOTE ---
wound photo: left leg
[2022-01-05] MEDS: oxyCODONE 5 MG Tablet PO (15:30)
--- NOTE | 2022-01-05 15:40 | HP.PCM_ITS ---
History and Physical Intake Vital Signs ? 12/25/2208:30 01/05/2211:27 Height 5 ft 6 in ? BP ? 107/67 Blood Pressure Location ? Rt brachial Position ? Sitting Respiration ? 18 Pulse ? 99 Pulse Source ? Monitor Temp ? 97.8 F Temp Source ? Temporal Pulse Oximetry (%) ? 95 Oxygen Delivery Method ? room air Intake Visit Reasons:?Hospital FU Chief Complaint: open area on incision, infection Allergies menthol Adverse Reaction (Verified 01/05/22 11:30) Rash Medications atorvastatin 80 mg tablet 80 mg PO QHS Check with primary doctor 12/18/21 [History Confirmed 01/05/22] bupropion HCl 150 mg tablet,12 hr sustained-release 150 mg PO BID Check with primary doctor 12/18/21 [History Confirmed 01/05/22] cilostazol 100 mg tablet 100 mg PO BID Check with primary doctor 12/18/21 [History Confirmed 01/05/22] dabigatran etexilate 150 mg capsule (Pradaxa) 150 mg PO BID Check with primary doctor 12/18/21 [History Confirmed 01/05/22] empagliflozin 25 mg tablet (Jardiance) 25 mg PO DAILY Check with primary doctor 12/18/21 [History Confirmed 01/05/22] fenofibrate 160 mg tablet 160 mg PO DAILY Check with primary doctor 12/18/21 [H istory Confirmed 01/05/22] icosapent ethyl 1 gram capsule (Vascepa) 2 g PO BID Check with primary doctor 12/18/21 [History Confirmed 01/05/22] lisinopril 2.5 mg tablet 2.5 mg PO DAILY Check with primary doctor 12/18/21 [History Confirmed 01/05/22] metformin 500 mg tablet 500 mg PO BID Check with primary doctor 12/18/21 [History Confirmed 01/05/22] metoprolol tartrate 25 mg tablet 25 mg PO BID Check with primary doctor 12/18/21 [History Confirmed 01/05/22] pantoprazole 40 mg tablet,delayed release 40 mg PO DAILY Check with primary doctor 12/18/21 [History Confirmed 01/05/22] prasugrel 10 mg tablet 10 mg PO DAILY Check with primary doctor 12/18/21 [History Confirmed 01/05/22] gabapentin 100 mg capsule 200 mg PO TIDCM 60 days #360 caps 12/25/21 [Rx Confirmed 01/05/22] oxycodone 5 mg tablet 5 mg PO Q4H PRN pain 7 days #42 tabs 12/25/21 [Rx Confirmed 01/05/22] sulfamethoxazole 800 mg-trimethoprim 160 mg tablet 1 tab PO BID 10 days #20 tabs 12/25/21 [Rx Confirmed 01/05/22] PFSH Medical History? Anxiety and depression CAD (coronary artery disease) CKD (chronic kidney disease), stage III COPD (chronic obstructive pulmonary disease) Diabetes mellitus, type 2 Former tobacco use GERD (gastroesophageal reflux disease) History of adenocarcinoma of lung History of venous thromboembolism Obesity PAOD (peripheral arterial occlusive disease) PVD (peripheral vascular disease) Surgical History? H/O peripheral artery bypass History of coronary artery bypass graft x 3 History of fasciotomy Hx of coronary angioplasty S/P peripheral artery angioplasty with stent placement Family History? Father Heart disease Hypertension CVA (cerebral vascular accident) Myocardial infarctionMother Cancer ?? ? Possibly stomach cancer. Diabetes Social History? household members:? spouse Smoking Status:? Former smoker how long ago did patient quit smoking:? Hx 0.3 ppd starting 1970, quit 05/05/21. alcohol intake:? current alcohol intake frequency: holidays/special occasions only substance use type:? does not use ROS General General: No weight change, appetite, fatigue, colon cancer, breast cancer or weakness HEENT HEENT: No difficulty swallowing, eye injury, eye surgery, swollen glands or hoarseness Endo Endocrine: Yes diabetes mellitus; No thyroid disease, thyroid cancer, Hair loss, heat intolerance or cold intolerance Skin Skin: No rash or changing moles Breast Breast: No left breast lump, right breast lump, nipple discharge, breast pain, abnormal mammogram, abnormal US or breast enlargement Musc Musculoskeletal: No back problems, arthritis, rheumatoid arthritis, gout or joint pain Cardio Cardiovascular: Yes heart disease, heart attack and heart stent; No murmur, pacemaker, atrial fibrillation, high blood pressure, palpitations, shortness of breat with exertion or chest pain Psych Psychiatric: No depression, anxiety or hearing voices Resp Respiratory: No shortness of breath, No sleep apnea, No cough, Yes COPD, No asthma, No emphysema and No wheezing Gastro Gastrointestinal: No abdominal pain, No nausea or vomiting, No diarrhea, No constipation, No blood in stool, No acid reflux, No hemorrhoids, No ulcers, No gallbladder problem and No black,tarry stools Chas Hematologic: Yes blood thinners, No blood disorders, No bleeding, No anemia and No blood clots Neuro Neurologic: No system reviewed and no additional complaints, except as documented, No as per HPI, No abnormal gait, No abnormal hearing, No abnormal movements, No abnormal speech, No behavioral changes, No burning sensations, No confusion, No convulsions, No disequilibrium, No dizziness, No localized wea kness, No frequent falls, No headache(s), No lack of coordination, No loss of vision, No memory loss, No numbness, No other visual disturbances, No radicular pain, No restless legs, No sensory deficit, No syncope, Yes tingling, No tremor(s), No weakness and No other Assessment and Plan Assessment and Plan (1) Amputation below knee: ?Status:?Acute ?Plan: -overall amputation looks good, no current purulence -cultures from [facility] with 2 organisms -will get sensitivities, admit for initiation of IV atbx and plan for PICC, ID consult?
[2022-01-05 16:40] VITALS: O2SAT 96
[2022-01-05 17:08] VITALS: BP 125/64; PULSE 98; RESP 20; TEMP 36.8; O2SAT 94
[2022-01-05 17:10] LABS: Bedside Glucose 98 mg/dL (74-106)
[2022-01-05 17:17] LABS: Anion Gap 9 (5-15); BUN 23 mg/dL (7-18); Calcium,Total 9.5 mg/dL (8.5-10.1); Chloride 102 mmol/L (98-107); Creatinine, Serum 1.64 mg/dL (0.70-1.30); EST Glomerular Filtration Rate 45 mL/min (>60); Est Glom Filt Rate - Afr Amer 54 mL/min (>60); Estimated Creatinine Clearance 41.98 ml/min; Glucose 98 mg/dL (74-106); Potassium 4.4 mmol/L (3.5-5.1); Sodium Level 134 mmol/L (136-145)
[2022-01-05] MEDS: metFORMIN HCl 500 MG Tablet PO (17:31)
[2022-01-05] MEDS: Cilostazol 50 MG Tablet 100 MG PO (17:32)
--- NOTE | 2022-01-05 18:15 | NURSING ---
This RN attempted to get a hold of Dr. Albert office voice service via yardage control operator x2 and was unable.
[2022-01-05] MEDS: Gabapentin 100 MG Capsule 200 MG PO (18:22)
--- NOTE | 2022-01-05 18:59 | PCM.RX.CS ---
Consult Pharmacy has been consulted to manage selected antiobiotic: Vancomycin Type of Consult: New start Labs: Sodium 134 mmol/L (136-145) L 01/05/22 16:45 Potassium 4.4 mmol/L (3.5-5.1) 01/05/22 16:45 Chloride 102 mmol/L (98-107) 01/05/22 16:45 Carbon Dioxide 23.0 mmol/L (21.0-32.0) 01/05/22 16:45 Anion Gap 9 (5-15) 01/05/22 16:45 BUN 23 mg/dL (7-18) H 01/05/22 16:45 Creatinine 1.64 mg/dL (0.70-1.30) H 01/05/22 16:45 Est GFR (MDRD) Af Amer 54 mL/min (>60) L 01/05/22 16:45 Est GFR (MDRD) Non-Af 45 mL/min (>60) L 01/05/22 16:45 BUN/Creatinine Ratio 14.0 RATIO (10-20) 01/05/22 16:45 Glucose 98 mg/dL (74-106) 01/05/22 16:45 Weight used for dosin kg Estimated Creatinine Clearance: 42 Goal Trough: 10-15 mcg/mL Pharmacy Plan for Drug Dosing: Vancomycin 1250mg IV q24h with trough prior to 3rd dose. Pharmacy Service will continue to monitor and adjust dosing as required. Follow-Up Labs: Trough Vancomycin - 01/07 @ 1730
[2022-01-05] MEDS: Acetaminophen 325 MG Tablet 650 MG PO (19:48)
[2022-01-05] MEDS: oxyCODONE 5 MG Tablet 10 MG PO (19:49)
--- NOTE | 2022-01-05 20:26 | NURSING ---
Pt in room with PICC line insertion RN; time out performed
[2022-01-05 21:00] VITALS: BP 111/74; PULSE 106; RESP 16; TEMP 36.4; O2SAT 94
[2022-01-05 21:32] VITALS: PULSE 97
[2022-01-05] MEDS: Metoprolol(XL)Succ 25 MG Tablet PO (21:32)
[2022-01-05] MEDS: buPROPion (SR) 150 MG Tablet.SA PO (21:32)
[2022-01-05] MEDS: Atorvastatin Calcium 80 MG Tablet PO (21:32)
[2022-01-05] MEDS: Pantoprazole Sodium 40 MG Tablet PO (21:39)
[2022-01-05 22:00] LABS: Bedside Glucose 108 mg/dL (74-106)
--- NOTE | 2022-01-05 22:50 | RAD_ITS ---
INDICATION: Tip placement confirmation EXAMINATION/TECHNIQUE: X-RAY - XR Chest 1 View COMPARISON: Chest x-ray from 12/22/2021 FINDINGS: LINES/DEVICES: Right PICC tip at level of upper cavoatrial junction. LUNGS: No pulmonary edema. Stable linear scarring left lower lung. No sizable pleural effusion. No pneumothorax detected. MEDIASTINUM AND CARDIOVASCULAR STRUCTURES: Heart size within normal limits. Prior sternotomy and CABG. Mediastinal contours unremarkable. BONES AND SOFT TISSUES: No acute findings. RAD/CXR for Line Placement IMPRESSION: No radiographic evidence of acute cardiopulmonary disease. Electronically Signed: Franc Yost MD at 1:26 EDT ,
[2022-01-06 03:00] VITALS: BP 131/76; PULSE 66; RESP 16; TEMP 37; O2SAT 96
[2022-01-06 06:04] LABS: Absolute Lymphocyte Count 2.51 X10^3/uL (0.83-4.51); Absolute Neutrophil Count 6.9 X10^3/uL (2.0-7.7); Basophil# 0.04 X10^3/uL; Basophil% 0.4 % (0-1); Eosinophil# 0.19 X10^3/uL; Eosinophils% 1.8 % (0-5); Hematocrit 37.1 % (40-54); Hemoglobin 11.3 g/dL (13.0-16.5); Lymphocyte # 2.51 X10^3/ul (0.83-4.51); Lymphocyte % 24.1 % (19-41); Mean Corp Hgb Conc 30.5 g/dL (32-36); Mean Corpuscular Hgb 23.2 pg (27.0-32.0); Mean Corpuscular Volume 76.2 fL (80-94); Mean Platelet Vol. 8.5 fl (6.2-12.0); Monocyte# 0.68 X10^3/uL; Monocyte% 6.5 % (0-10); NRBC Flagged by Analyzer 0 % (0-5); Neutrophil # 6.93 X10^3/uL (2.7-7.7); Neutrophil % 66.5 % (47-70); Platelet Count 548 K/mm3 (150-450); RBC Distribution Width SD 53.1 fl (35.1-43.9); Red Blood Count 4.87 M/mm3 (4.6-6.2); White Blood Count 10.4 K/mm3 (4.4-11.0)
[2022-01-06 06:29] LABS: Anion Gap 8 (5-15); BUN 21 mg/dL (7-18); BUN/Creat Ratio 13.6 RATIO (10-20); Calcium,Total 9.5 mg/dL (8.5-10.1); Chloride 107 mmol/L (98-107); Creatinine, Serum 1.54 mg/dL (0.70-1.30); EST Glomerular Filtration Rate 48 mL/min (>60); Est Glom Filt Rate - Afr Amer 59 mL/min (>60); Estimated Creatinine Clearance 44.71 ml/min; Glucose 116 mg/dL (74-106); Potassium 4.2 mmol/L (3.5-5.1); Sodium Level 135 mmol/L (136-145)
[2022-01-06] MEDS: Cilostazol 50 MG Tablet 100 MG PO ×2 (08:26→15:48)
[2022-01-06] MEDS: Gabapentin 100 MG Capsule 200 MG PO ×2 (08:26→12:16)
[2022-01-06] MEDS: metFORMIN HCl 500 MG Tablet PO ×2 (08:26→15:48)
[2022-01-06 09:57] VITALS: BP 105/75; PULSE 95; RESP 16; TEMP 36.8; O2SAT 96
[2022-01-06 09:59] VITALS: PULSE 95
[2022-01-06] MEDS: Metoprolol(XL)Succ 25 MG Tablet PO (09:59)
[2022-01-06] MEDS: Empagliflozin 25 MG Tablet PO (09:59)
[2022-01-06] MEDS: buPROPion (SR) 150 MG Tablet.SA PO (09:59)
[2022-01-06] MEDS: Lisinopril 2.5 MG Tablet PO (09:59)
[2022-01-06] MEDS: Enoxaparin 40 MG/0.4 ML Syringe SC (09:59)
[2022-01-06] MEDS: Pantoprazole Sodium 40 MG Tablet PO (10:07)
--- NOTE | 2022-01-06 10:12 | CASEMGMT ---
Pt screened with [facility] Palliative Care Screening Tool d/t readmission, pt did not meet criteria.
--- NOTE | 2022-01-06 10:12 | PCM.CONS.GEN ---
Assessment & Plan Assessment/Plan (1) Superficial incisional surgical site infection: PLAN: Spoke with [facility] micro lab. Reviewed cxs. 12/29 wound cx with MRSA, serratia, gram pos anaerobe. Had been on bactrim previously. Wound with no inflammation/purulence, pt feeling well. Given recent surgery, cx results, and prior report of murky drainage, will write for 5 more days po cipro/augmentin to cover the cx growth. Has been on vanc/zosyn here. Ok for picc removal. Rx sent to pharm, d/w Dr. Reyes and field nurse case manager. Will follow as needed, thank you HPI Consult Data Date of Consult: 01/06/22 HPI Narrative Reason for Consultation: surg site infection HPI Narrative: AMADOR NAVARRETE, is a 66 M who had L BKA on 12/22/21 at [facility] by Dr. Reyes. Discharged 12/25 with 10 days po bactrim due to some murky drainage seen. Since then, has been feeling ok, no fever, no n/v/d, no new pain/redness/odor/drainage from stump. At [facility] 12/29, was not feeling well, had wound dehiscence, went to ED, wound cx collected, got frustrated and left. No new abx started. Received notice of (+) cx, saw Dr. Reyes, admitted yesterday on vanc/zosyn. Feeling fine this AM. Reports fell in bathroom, landed on stump about 2-3 days ago. Full ROS performed and neg except as noted above. [facility] Medical History Anxiety and depression CAD (coronary artery disease) CKD (chronic kidney disease), stage III COPD (chronic obstructive pulmonary disease) Diabetes mellitus, type 2 Former tobacco use GERD (gastroesophageal reflux disease) History of adenocarcinoma of lung History of venous thromboembolism Obesity PAOD (peripheral arterial occlusive disease) PVD (peripheral vascular disease) Home Medications atorvastatin 80 mg tablet 80 mg PO QHS Check with primary doctor 12/18/21 [History Last Taken 01/04/22 20:00] bupropion HCl 150 mg tablet,12 hr sustained-release 150 mg PO BID Check with primary doctor 12/18/21 [History Last Taken 01/04/22 20:00] cilostazol 100 mg tablet 100 mg PO BID Check with primary doctor 12/18/21 [History Last Taken 01/04/22] dabigatran etexilate 150 mg capsule (Pradaxa) 150 mg PO BID Check with primary doctor 12/18/21 [History Last Taken 01/04/22 20:00] empagliflozin 25 mg tablet (Jardiance) 25 mg PO DAILY Check with primary doctor 12/18/21 [History Last Taken 01/04/22 20:00] fenofibrate 160 mg tablet 160 mg PO DAILY Check with primary doctor 12/18/21 [History Last Taken 01/04/22 20:00] icosapent ethyl 1 gram capsule (Vascepa) 2 g PO BID Check with primary doctor 12/18/21 [History Last Taken 01/04/22 20:00] lisinopril 2.5 mg tablet 2.5 mg PO DAILY Check with primary doctor 12/18/21 [History Last Taken 01/04/22 20:00] metformin 500 mg tablet 500 mg PO BID Check with primary doctor 12/18/21 [History Last Taken 01/04/22 17:00] metoprolol tartrate 25 mg tablet 25 mg PO BID Check with primary doctor 12/18/21 [History Last Taken 01/04/22 20:00] pantoprazole 40 mg tablet,delayed release 40 mg PO DAILY Check with primary doctor 12/18/21 [History Last Taken 01/04/22 20:00] prasugrel 10 mg tablet 10 mg PO DAILY Check with primary doctor 12/18/21 [History Last Taken 01/04/22 20:00] gabapentin 100 mg capsule 200 mg PO TIDCM 60 days #360 caps 12/25/21 [Rx Last Taken Unknown] oxycodone 5 mg tablet 5 mg PO Q4H PRN pain 7 days #42 tabs 12/25/21 [Rx Last Taken Unknown] amoxicillin 875 mg-potassium clavulanate 125 mg tablet 1 tab PO Q12H #10 tabs 01/06/22 [Rx Last Taken Unknown] ciprofloxacin HCl 500 mg tablet (Cipro) 500 mg PO BID #10 tabs 01/06/22 [Rx Last Taken Unknown] Allergy/AdvReac Type Severity Reaction Status Date / Time menthol AdvReac Rash Verified 01/05/22 11:30 Family History Father Heart disease Hypertension CVA (cerebral vascular accident) Myocardial infarction Mother Cancer Possibly stomach cancer. Diabetes Surgical History H/O peripheral artery bypass History of coronary artery bypass graft x 3 History of fasciotomy Hx of coronary angioplasty S/P peripheral artery angioplasty with stent placement Social History household members: spouse Smoking Status: Former smoker how long ago did patient quit smoking: Hx 0.3 ppd starting 1970, quit 05/05/21. alcohol intake: current alcohol intake frequency: holidays/special occasions only substance use type: does not use Physical Exam Const alert, oriented x3 and no apparent distress General Appearance: cooperative HEENT normocephalic and head/scalp atraumatic Eyes PERRL and EOMs intact bilaterally Neck supple and No nodes Resp normal air movement and clear to auscultation bilaterally Cardio regular rate and regular rhythm GI soft to palpation, non-tender and non-distended Extremity General Extremity: Negative for edema Skin Skin Narrative: L BKA stump with two areas of dehiscence, small amount of bleeding. Lab / Micro Data Result Diagrams: 01/06/22 05:26 01/06/22 05:26 Labs: Laboratory Results - last 24 hr 01/05/22 16:45: Sodium 134 L, Potassium 4.4, Chloride 102, Carbon Dioxide 23.0, Anion Gap 9, BUN 23 H, Creatinine 1.64 H, Estim Creat Clear Calc 41.98, Est GFR (MDRD) Af Amer 54 L, Est GFR (MDRD) Non-Af 45 L, BUN/Creatinine Ratio 14.0, Glucose 98, Calcium 9.5 01/05/22 16:48: POC Glucose 98 01/05/22 21:36: POC Glucose 108 H 01/06/22 05:26: WBC 10.4, RBC 4.87, Hgb 11.3 L, Hct 37.1 L, MCV 76.2 L, MCH 23.2 L, MCHC 30.5 L, RDW Std Deviation 53.1 H, RDW Coeff of Amaris 20.0 H, Plt Count 548 H, MPV 8.5, Immature Gran % (Auto) 0.700, Neut % (Auto) 66.5, Lymph % (Auto) 24.1, [place] % (Auto) 6.5, Eos % (Auto) 1.8, Baso % (Auto) 0.4, Absolute Neuts (auto) 6.9, Absolute Lymphs (auto) 2.51, Nucleated RBC % 0 01/06/22 05:26: Sodium 135 L, Potassium 4.2, Chloride 107, Carbon Dioxide 20.0 L, Anion Gap 8, BUN 21 H, Creatinine 1.54 H, Estim Creat Clear Calc 44.71, Est GFR (MDRD) Af Amer 59 L, Est GFR (MDRD) Non-Af 48 L, BUN/Creatinine Ratio 13.6, Glucose 116 H, Calcium 9.5 Radiology Impression Chest X-Ray 01/05/22 22:50 IMPRESSION: No radiographic evidence of acute cardiopulmonary disease. Electronically Signed: Franc Yost MD at 1:26 EDT ,
[2022-01-06] MEDS: oxyCODONE 5 MG Tablet 10 MG PO ×2 (11:19→15:47)
[2022-01-06 11:40] LABS: Bedside Glucose 155 mg/dL (74-106)
--- NOTE | 2022-01-06 12:04 | CASEMGMT ---
Addendum entered by Edel Russ 01/06/22 13:23: Resumption referral sent to [facility], received confirmation that pt is active and pt will be accepted back at [facility]. Original Note: MEREDITH MIRANDA Readmission Note Previous Admission:? 12/19/2021-12/25/2021??? Diagnosis:? L LE ischemia DC Disposition: Home with?[facility], [facility] and oxygen through [employer] Current Admission? Current diagnosis: Infected wound Pt presented as a direct admit after being seen by surgeon for follow up of L BKA. Pt states this was a normal follow up appt. He had bumped his stump prior. Pt has two open areas to incision line per photo and discussion with wound nurse. Pt states he has had [facility] coming to his home for SN, PT and OT. He states he would like to return home with their care. Pt denies need for a list of of [facility] providers including quality and resource use data and consistent with the patient?s preferred geographic region, medical needs, and insurance network. Pt states the [facility] provides him with wound supplies. He states his performs wound care twice daily currently. States she has been caring for wounds for the last 2 years for pt. Discussed that the wound care orders may change, he states his will still be able to perform. He is agreeable to MEREDITH MIRANDA calling to verify. Will do so when orders received. Pt states he does have oxygen at home through [employer] but does not use it. Currently he is on RA. Pt has been taking his medications as ordered and checking blood sugars. He has a BGM with sufficient supplies. Pt denies further needs. Discussed with ID that pt will be on po antibiotics. Referral sent to [facility] for NORM. [place] to [place] [facility] [place]Home with [facility] to resume.
[2022-01-06] MEDS: HYDROmorphone 0.5 MG/0.5 ML SYRINGE IV (12:16)
[2022-01-06] MEDS: Senna/Docusate Sodium 1 Tablet 2 TABLET PO (12:16)
[2022-01-06 13:49] VITALS: BP 91/68; PULSE 99; RESP 16; TEMP 36.8; O2SAT 96
--- NOTE | 2022-01-06 16:35 | PN.SURG_ITS ---
Subjective Subjective Feeling well. Pain mostly controlled, some difficulties during dressing changes. No F/C. Culture and sensitivities from [facility] reviewed by ID and discussed with Dr. Jane. Objective Data Objective Data Vital Signs: Vital Signs Temp Pulse Resp BP Pulse Ox O2 Del Method 98.3 F 99 16 91/68 96 Room Air 01/06/22 13:49 01/06/22 13:49 01/06/22 13:49 01/06/22 13:49 01/06/22 13:49 01/06/22 14:29 Oxygen Delivery Method Room Air Weight: 200 lb 9.93 oz Body Mass Index (BMI) 31.4 Intake & Output: Intake and Output for Last 24 Hours 01/04/22 01/05/22 01/06/22 23:59 23:59 23:59 Intake Total 985 / 985 850 / 850 Output Total 400 / 400 1500 / 1500 Balance 585 / 585 -650 / -650 Lab / Micro Data Result Diagrams: 01/06/22 05:26 01/06/22 05:26 Labs: Laboratory Results - last 24 hr 01/05/22 16:45: Sodium 134 L, Potassium 4.4, Chloride 102, Carbon Dioxide 23.0, Anion Gap 9, BUN 23 H, Creatinine 1.64 H, Estim Creat Clear Calc 41.98, Est GFR (MDRD) Af Amer 54 L, Est GFR (MDRD) Non-Af 45 L, BUN/Creatinine Ratio 14.0, Glucose 98, Calcium 9.5 01/05/22 16:48: POC Glucose 98 01/05/22 21:36: POC Glucose 108 H 01/06/22 05:26: WBC 10.4, RBC 4.87, Hgb 11.3 L, Hct 37.1 L, MCV 76.2 L, MCH 23.2 L, MCHC 30.5 L, RDW Std Deviation 53.1 H, RDW Coeff of Amaris 20.0 H, Plt Count 548 H, MPV 8.5, Immature Gran % (Auto) 0.700, Neut % (Auto) 66.5, Lymph % (Auto) 24.1, [place] % (Auto) 6.5, Eos % (Auto) 1.8, Baso % (Auto) 0.4, Absolute Neuts (auto) 6.9, Absolute Lymphs (auto) 2.51, Nucleated RBC % 0 01/06/22 05:26: Sodium 135 L, Potassium 4.2, Chloride 107, Carbon Dioxide 20.0 L , Anion Gap 8, BUN 21 H, Creatinine 1.54 H, Estim Creat Clear Calc 44.71, Est GFR (MDRD) Af Amer 59 L, Est GFR (MDRD) Non-Af 48 L, BUN/Creatinine Ratio 13.6, Glucose 116 H, Calcium 9.5 01/06/22 11:22: POC Glucose 155 H Radiography Diagnostic Testing: Radiology Impression Chest X-Ray 01/05/22 22:50 IMPRESSION: No radiographic evidence of acute cardiopulmonary disease. Electronically Signed: Franc Yost MD at 1:26 EDT , Physical Exam Const alert, oriented x3, no apparent distress and healthy appearing General Appearance: cooperative; Negative for combative or lethargic Orientation / Consciousness: awake Exam Limitations: no limitations HEENT Head and Scalp: normocephalic and atraumatic Resp normal respiratory effort and no use of accessory muscles Effort and Inspection: Negative for labored, stridor or audible wheezes Cardio regular rate and regular rhythm Back/Spine Cervical Spine: cervical ROM normal Extremity full ROM, normal capillary refill and no clubbing, cyanosis or edema Skin no rashes or lesions noted and no wounds Wounds: amputation No drainage, margins well approximated and No surrounding erythema, No malodorous, sutures in place and No surrounding erythema Neuro oriented x3, CN's II-XII intact bilaterally, no focal motor deficits and no sensory deficits noted Psych thought process normal, cooperative, affect normal, speech normal and activity/motor behavior normal Assessment & Plan Assessment/Plan (1) Superficial incisional surgical site infection: PLAN: -Po antibiotics recommended by ID -will remove PICC -pack wound daily; has supplies at home -DC
--- NOTE | 2022-01-06 16:43 | DS.PCM_ITS ---
Providers Date of Admission: 01/05/22 Primary Care Physician: JAMIE CLEVELAND Consultations 01/05/22 15:40 Consult: Infectious Disease Routine Consulting Provider: Jaime Jane Reason for Consult: left below knee amputation infection; cultures from outside facility EMERGENT Consult: No MD Notified: Yes Date Notified: 01/06/22 Time Notified: 03:49 Method of Notification: Answering Service Reason For Visit: INFECTED WOUND Diagnosis Discharge Diagnosis (1) Superficial incisional surgical site infection: Status: Acute Code(s): T81.41XA - Infection following a procedure, superficial incisional surgical sit e, initial encounter Plan: -Po antibiotics recommended by ID -will remove PICC -pack wound daily; has supplies at home -DC Medications at Discharge Home Medications atorvastatin 80 mg tablet 80 mg PO QHS Check with primary doctor 12/18/21 bupropion HCl 150 mg tablet,12 hr sustained-release 150 mg PO BID Check with primary doctor 12/18/21 cilostazol 100 mg tablet 100 mg PO BID Check with primary doctor 12/18/21 dabigatran etexilate 150 mg capsule (Pradaxa) 150 mg PO BID Check with primary doctor 12/18/21 empagliflozin 25 mg tablet (Jardiance) 25 mg PO DAILY Check with primary doctor 12/18/21 fenofibrate 160 mg tablet 160 mg PO DAILY Check with primary doctor 12/18/21 icosapent ethyl 1 gram capsule (Vascepa) 2 g PO BID Check with primary doctor 12/18/21 lisinopril 2.5 mg tablet 2.5 mg PO DAILY Check with primary doctor 12/18/21 metformin 500 mg tablet 500 mg PO BID Check with primary doctor 12/18/21 metoprolol tartrate 25 mg tablet 25 mg PO BID Check with primary doctor 12/18/21 pantoprazole 40 mg tablet,delayed release 40 mg PO DAILY Check with primary doc tor 12/18/21 prasugrel 10 mg tablet 10 mg PO DAILY Check with primary doctor 12/18/21 gabapentin 100 mg capsule 200 mg PO TIDCM 60 days #360 caps 12/25/21 oxycodone 5 mg tablet 5 mg PO Q4H PRN pain 7 days #42 tabs 12/25/21 amoxicillin 875 mg-potassium clavulanate 125 mg tablet 1 tab PO Q12H #10 tabs 08/30/22 ciprofloxacin HCl 500 mg tablet (Cipro) 500 mg PO BID #10 tabs 01/06/22 oxycodone 10 mg tablet 10 mg PO Q8H PRN pain 7 days #20 tabs 01/06/22 Hospital Course Summary of Care Provided Hospital Course: Mr. Camarena presented to the office initially on 01/05 approximately 2 weeks after left below-knee amputation. In the interval he had been seen in outside facility with concern for wound infection and cultures that reported multiple species growing without further detail. He had received some antibiotics however given the multiple species felt that potential be necessary for longer- term IV antibiotics. He was admitted to help expedite PICC line and antibiotic arrangement as well as to review plans with infectious disease. Upon admission his anticoagulation was held and PICC line inserted with anticipation of IV antibiotic needs. We were ultimately able to receive the full culture reports and sensitivities from the outside facility upon further review with infectious disease is felt that given the wound appearance and culture results oral antibiotics were sufficient. His PICC line was then removed and anticoagulation resumed. He was discharged with wound care instructions and prior arranged home wound care as well as prescription for antibiotic provided by infectious dis ease. Upon discharge he had no fevers chills his pain was well controlled and his wound was in satisfactory appearance. He will follow-up in short interval in the office to confirm no ongoing concerns for escalating infection. Physical Exam Const alert, oriented x3, no apparent distress and healthy appearing General Appearance: cooperative; Negative for combative or lethargic Orientation / Consciousness: awake Exam Limitations: no limitations HEENT Head and Scalp: normocephalic and atraumatic Resp normal respiratory effort and no use of accessory muscles Effort and Inspection: Negative for labored, stridor or audible wheezes Cardio regular rate and regular rhythm Skin Wounds: amputation No drainage, margins well defined and No surrounding erythema, No malodorous, sutures in place and No surrounding erythema Wound Narrative: 2 areas of suture dehiscence/removal anterior and lateral Neuro oriented x3, CN's II-XII intact bilaterally, no focal motor deficits and no sensory deficits noted Psych thought process normal, cooperative, affect normal, speech normal and activity/motor behavior normal Weight / BMI Weight Weight: 200 lb 9.93 oz Body Mass Index (BMI) 31.4 ABG / Lab / Microbiology Data Result Diagrams: 01/06/22 05:26 01/06/22 05:26 Laboratory: Laboratory Results - last 24 hr 01/05/22 16:45: Sodium 134 L, Potassium 4.4, Chloride 102, Carbon Dioxide 23.0, Anion Gap 9, BUN 23 H, Creatinine 1.64 H, Estim Creat Clear Calc 41.98, Est GFR (MDRD) Af Amer 54 L, Est GFR (MDRD) Non-Af 45 L, BUN/Creatinine Ratio 14.0, Glucose 98, Calcium 9.5 01/05/22 16:48: POC Glucose 98 01/05/22 21:36: POC Glucose 108 H 01/06/22 05:26: WBC 10.4, RBC 4.87, Hgb 11.3 L, Hct 37.1 L, MCV 76.2 L, MCH 23.2 L, MCHC 30.5 L, RDW Std Deviation 53.1 H, RDW Coeff of Amaris 20.0 H, Plt Count 548 H, MPV 8.5, Immature Gran % (Auto) 0.700, Neut % (Auto) 66.5, Lymph % (Auto) 24.1, [place] % (Auto) 6.5, Eos % (Auto) 1.8, Baso % (Auto) 0.4, Absolute Neuts (auto) 6.9, Absolute Lymphs (auto) 2.51, Nucleated RBC % 0 01/06/22 05:26: Sodium 135 L, Potassium 4.2, Chloride 107, Carbon Dioxide 20.0 L , Anion Gap 8, BUN 21 H, Creatinine 1.54 H, Estim Creat Clear Calc 44.71, Est GFR (MDRD) Af Amer 59 L, Est GFR (MDRD) Non-Af 48 L, BUN/Creatinine Ratio 13.6, Glucose 116 H, Calcium 9.5 01/06/22 11:22: POC Glucose 155 H Radiography Diagnostic Testing: Radiology Impression Chest X-Ray 01/05/22 22:50 IMPRESSION: No radiographic evidence of acute cardiopulmonary disease. Electronically Signed: Franc Yost MD at 1:26 EDT , Meaningful Use Info Meaningful Use Diagnoses (Choose all that apply): None applicable Discharge Plan Admission Admit Date/Time: 01/05/22 15:26 Attending Provider: Jhonathan Reyes Primary Care Provider: BEVERLY BENTELY Consulting Providers: Jaime Jane Discharge Orders/Prescriptions Prescriptions: New ciprofloxacin HCl [Cipro] 500 mg tablet 500 mg PO BID Qty: 10 0RF amoxicillin-pot clavulanate 875-125 mg tablet 1 tab PO Q12H Qty: 10 0RF oxycodone 10 mg tablet 10 mg PO Q8H PRN (Reason: pain) 7 Days Qty: 20 0RF Continued metformin 500 mg Tablet 500 mg PO BID cilostazol 100 mg Tablet 100 mg PO BID bupropion HCl 150 mg Tablet Sustained-Release 12 Hr 150 mg PO BID atorvastatin 80 mg Tablet 80 mg PO QHS pantoprazole 40 mg Tablet,Delayed Release (Dr/Ec) 40 mg PO DAILY lisinopril 2.5 mg Tablet 2.5 mg PO DAILY metoprolol tartrate 25 mg Tablet 25 mg PO BID fenofibrate 160 mg Tablet 160 mg PO DAILY prasugrel 10 mg Tablet 10 mg PO DAILY dabigatran etexilate [Pradaxa] 150 mg Capsule 150 mg PO BID icosapent ethyl [Vascepa] 1 gram Capsule 2 g PO BID Jardiance 25 mg Tablet 25 mg PO DAILY gabapentin 100 mg Capsule 200 mg PO TIDCM 60 Days Qty: 360 3RF oxycodone 5 mg tablet 5 mg PO Q4H PRN (Reason: pain) 7 Days Qty: 42 0RF Discontinued sulfamethoxazole-trimethoprim 800-160 mg Tablet 1 tab PO BID 10 Days Qty: 20 0RF Referrals / Follow Up: BEVERLY BENTLEY, PILAR-C [Primary Care Provider] - Disposition Disposition (needs filled in before D/C Order can be placed): Home Health Service
[2022-01-06 16:51] VITALS: BP 131/71; PULSE 78; RESP 18; TEMP 36.7; O2SAT 95
--- NOTE | 2022-01-07 08:57 | CASEMGMT ---
Noted pt dc'd yesterday. TC to wound nurse, states pt wound orders did not change from what was being done at home. Pt was aware of this and had supplies. Uploaded dc summary via careport to [facility] and made aware pt was dc'd yesterday.
== END 2022-01-06 17:03 | disposition home health service (06) | DRG 863 ==
PROVIDERS: Admitting Provider Surgery Trauma Surgery; PCP Nurse Practitioner Adult Health; Referring Provider Surgery Trauma Surgery; Visit Provider Surgery Trauma Surgery
DX: T81.41XA Infection following a procedure, superficial incisional surgical site, initial encounter (principal); E11.51 Type 2 diabetes mellitus with diabetic peripheral angiopathy without gangrene; Z89.512 Acquired absence of left leg below knee; J44.9 Chronic obstructive pulmonary disease, unspecified; E11.22 Type 2 diabetes mellitus with diabetic chronic kidney disease; N18.31 Chronic kidney disease, stage 3a; I25.10 Atherosclerotic heart disease of native coronary artery without angina pectoris; K21.9 Gastro-esophageal reflux disease without esophagitis; F41.9 Anxiety disorder, unspecified; Z87.891 Personal history of nicotine dependence; Z79.84 Long term (current) use of oral hypoglycemic drugs; Z79.02 Long term (current) use of antithrombotics/antiplatelets; Z95.1 Presence of aortocoronary bypass graft; F32.A Depression, unspecified; E66.9 Obesity, unspecified; Z79.899 Other long term (current) drug therapy; Z68.31 Body mass index [BMI] 31.0-31.9, adult
CPT/HCPCS: 36415; 36569; 71045; 80048; 82962; 85025; 96365; 96366; 96367; 96372; 96375; 96376; 97162; 97166; 97802; 99218; 99251; J7050; G0378; G0463

== ENCOUNTER 2022-05-06 10:20 | Day surgery (SDC) | payer MEDICARE, SELFPAY ==
[2022-05-06] VITALS (14 sets, daily range): BP systolic 74–175; BP diastolic 56–148; PULSE 77–136; RESP 12–104; TEMP 36.1–36.4; O2SAT 74–95; BMI 33.8; BMI 33.9
[2022-05-06 11:26] LABS: Hematocrit 41.9 % (40-54); Hemoglobin 13.7 g/dL (13.0-16.5); Mean Corp Hgb Conc 32.7 g/dL (32-36); Mean Corpuscular Hgb 25.1 pg (27.0-32.0); Mean Corpuscular Volume 76.9 fL (80-94); Mean Platelet Vol. 8.9 fl (6.2-12.0); Platelet Count 333 K/mm3 (150-450); RBC Distribution Width CV 18.6 % (11.6-14.6); RBC Distribution Width SD 49.9 fl (35.1-43.9); Red Blood Count 5.45 M/mm3 (4.6-6.2); White Blood Count 9.5 K/mm3 (4.4-11.0)
[2022-05-06] MEDS: Lactated Ringers 1,000 ML 15 ML IV (11:34)
[2022-05-06 11:42] LABS: Anion Gap 10 (5-15); BUN 21 mg/dL (7-18); BUN/Creat Ratio 14.1 RATIO (10-20); Calcium,Total 9.6 mg/dL (8.5-10.1); Chloride 102 mmol/L (98-107); Creatinine, Serum 1.49 mg/dL (0.70-1.30); EST Glomerular Filtration Rate 50 mL/min (>60); Est Glom Filt Rate - Afr Amer 61 mL/min (>60); Estimated Creatinine Clearance 46.21 ml/min; Glucose 165 mg/dL (74-106); Potassium 4.8 mmol/L (3.5-5.1); Sodium Level 134 mmol/L (136-145)
--- NOTE | 2022-05-06 11:42 | PCM.HP.BLA ---
History and Physical Intake Vital Signs ? 01/06/2213:19 04/17/2213:03 Height 5 ft 7 in ? BP ? 108/61 Blood Pressure Location ? Rt brachial Position ? Sitting Pulse ? 106 H Pulse Oximetry (%) ? 95 Oxygen Delivery Method ? room air Intake Visit Reasons:?wound not healing Chief Complaint: WOUND INFECTION Allergies menthol Adverse Reaction (Verified 03/17/22 10:19) Rash Medications atorvastatin 80 mg tablet 80 mg PO QHS Check with primary doctor 12/18/21 [History Confirmed 04/17/22] bupropion HCl 150 mg tablet,12 hr sustained-release 150 mg PO BID Check with primary doctor 12/18/21 [History Confirmed 04/17/22] dabigatran etexilate 150 mg capsule (Pradaxa) 150 mg PO BID Check with primary doctor 12/18/21 [History Confirmed 04/17/22] empagliflozin 25 mg tablet (Jardiance) 25 mg PO DAILY Check with primary doctor 12/18/21 [History Confirmed 04/17/22] fenofibrate 160 mg tablet 160 mg PO DAILY Check with primary doctor 12/18/21 [History Confirmed 04/17/22] icosapent ethyl 1 gram capsule (Vascepa) 2 g PO BID Check with primary doctor 12/18/21 [History Confirmed 04/17/22] metformin 500 mg tablet 500 mg PO BID Check with primary doctor 12/18/21 [History Confirmed 04/17/22] pantoprazole 40 mg tablet,delayed release 40 mg PO DAILY Check with primary doctor 12/18/21 [History Confirmed 04/17/22] prasugrel 10 mg tablet 10 mg PO DAILY Check with primary doctor 12/18/21 [History Confirmed 04/17/22] metoprolol tartrate 25 mg tablet 25 mg PO DAILY Check with primary doctor 01/20/22 [History Confirmed 04/17/22] alirocumab 75 mg/mL subcutaneous pen injector (Praluent Pen) 75 mg subcut Q14D 01/27/22 [History Confirmed 04/17/22] gabapentin 100 mg capsule 300 mg PO TID 01/27/22 [History Confirmed 04/17/22] melatonin 10 mg capsule 10 mg PO HS PRN sleep #30 caps 03/17/22 [Rx Confirmed 04/17/22] Subjective Details: Patient is doing okay overall, but very frustrated with stalled healing of remaining wound. Also very frustrated with process of getting fitted for a prosthesis. He was told last week that he has reduced range of motion and will need to do some PT to address this, at risk of not being able to obtain a prosthesis. He and are both frustrated to still be off of work, it is becoming increasingly difficult financially and mentally. They report that he has completed hyperbaric oxygen therapy and wounds are just being minimally debrided, cleaned, and covered with collagen hydrogel and gauze. No longer using Santyl. He is also being treated with doxycycline as recent cultures came back positive for MRSA. Patient states he had an XR a couple days ago as the [facility] was concerned for osteomyelitis and potential retained staple from the surgery. Patient states that the small, anterior wound is not any larger, but just not improving. He notes a moderate amount of drainage, none of it purulent or foul-smelling. He notes they do not consider the lateral wounds fully healed yet as they remove the scab and debride there each week at the wound center. He is still having pain, but it is better than it was 1 month ago. He is sleeping better now. Objective Details: A&Ox3, no apparent distress Clear to auscultation bilaterally, RRR Left BKA, somewhat tender to palpation along incision lines. Lateral incisions/wounds are superficial and scabbed over, nearly healed. Anteriorly, wound remains, about 1 cm in diameter, tracks about 1.5-2cm deep. Small amount of murky fluid draining, no purulence, erythema, or foul odor. Coding Level of Care Code Off vis,est,level 1 Diagnoses Amputation below knee? S88.119A [facility] Medical History? Anxiety and depression CAD (coronary artery disease) CKD (chronic kidney disease), stage III COPD (chronic obstructive pulmonary disease) Diabetes mellitus, type 2 Former tobacco use GERD (gastroesophageal reflux disease) History of adenocarcinoma of lung History of venous thromboembolism Obesity PAOD (peripheral arterial occlusive disease) PVD (peripheral vascular disease) Surgical History? H/O peripheral artery bypass History of coronary artery bypass graft x 3 History of fasciotomy Hx of coronary angioplasty S/P peripheral artery angioplasty with stent placement Family History? Father Heart disease Hypertension CVA (cerebral vascular accident) Myocardial infarctionMother Cancer ?? ? Possibly stomach cancer. Diabetes Social History? household members:? spouse Smoking Status:? Former smoker how long ago did patient quit smoking:? Hx 0.3 ppd starting 1969, quit 05/05/21. alcohol intake:? current alcohol intake frequency: holidays/special occasions only substance use type:? does not use Assessment and Plan (No Qualifiers) Assessment and Plan (1) Amputation below knee: ?Status:?Chronic Plan The anterior wound remains open despite several months of local wound care and hyperbaric oxygen therapy. Continues to be infected and now with concerns for osteomyelitis. Washout in the OR with possible bone biopsy and axiofill application would be beneficial at this point.
[2022-05-06 12:00] LABS: Bedside Glucose 166 mg/dL (74-106)
[2022-05-06] MEDS: Ipratropium/Albuterol Sulfate 3 ML AMPUL.NEB INHALATION (12:04)
[2022-05-06 12:07] LABS: Hemoglobin A1c 7.7 % (3.8-5.6)
[2022-05-06] MEDS: Cefazolin 2 GM in 0.9% Normal Saline 100 ML IV (12:31)
[2022-05-06] MEDS: Vancomycin IV 1,000 MG/20 ML Vial 1000 MG OPERA.SITE (13:03)
--- NOTE | 2022-05-06 13:14 | DCINST_ITS ---
Discharge Instructions Diet Discharge Diet: No restrictions Activity May shower in (days): 2 Additional Activity Instructions:: Dressing / Incision Call your doctor if your incision/area has: Increased Redness and Foul Smelling Discharge Call your doctor if you observe: Fever of 101 or Higher Remove Dressing in: 5 days Cleanse incision/area with: Soap & Water Additional Dressing/Incision Instructions:: cover incision with bag for showers until dressing removal Follow Up Care Test Results: Test results from this visit will be discussed in further detail at your follow- up appointment, if applicable. Discharge Plan Admission Primary Reason for Your Visit: irrigation/drainage left below knee amputation wound Attending Provider: Jhonathan Reyes Primary Care Provider: BEVERLY BENTLEY Discharge Orders/Prescriptions Prescriptions: New oxycodone 5 mg tablet 5 mg PO Q8H PRN (Reason: pain) 5 Days Qty: 15 0RF Continued Praluent Pen 75 mg/mL pen injector 75 mg subcut Q14D gabapentin 100 mg capsule 300 mg PO TID metformin 500 mg Tablet 1,000 mg PO 0800 bupropion HCl 150 mg Tablet Sustained-Release 12 Hr 150 mg PO BID atorvastatin 80 mg Tablet 80 mg PO QHS pantoprazole 40 mg Tablet,Delayed Release (Dr/Ec) 40 mg PO DAILY fenofibrate 160 mg Tablet 160 mg PO DAILY prasugrel 10 mg Tablet 10 mg PO DAILY dabigatran etexilate [Pradaxa] 150 mg Capsule 150 mg PO BID Label Comments: LAST DOSE 04/27/22 icosapent ethyl [Vascepa] 1 gram Capsule 2 g PO BID Jardiance 25 mg Tablet 25 mg PO DAILY metoprolol tartrate 25 mg tablet 25 mg PO DAILY metformin 500 mg tablet extended release 24 hr 500 mg PO 2000 isosorbide mononitrate 30 mg tablet extended release 24 hr 30 mg PO DAILY albuterol sulfate 90 mcg/actuation Hfa Aerosol Inhaler 2 puff INHALATION PRN PRN (Reason: COPD) Referrals / Follow Up: BEVERLY BENTLEY NP-C [Primary Care Provider] - Disposition Disposition (needs filled in before D/C Order can be placed): Home, Self Care
--- NOTE | 2022-05-06 13:37 | SUR.PHASEI ---
Addendum entered by Omer Shoemaker 05/06/22 15:01: ERROR PATIENT'S INITIAL SPO2 WAS 77% ON ROOM AIR NOT IN THE 80'S. Original Note: PATIENT GOT TO PACU AT 1337. HE WAS VERY RESTLESS, BUT WAS NOT RESPONDING TO HIS NAME. HE WAS MOVING ALL OVER THE BED WE ATTEMPTED TO HOOK PATIENT UP TO THE MONITOR. WE REPLACED LEADS AND PUT A FINGER SP02 ON PATIENT. PATIENT SPO2 WAS IN THE 80'S AT THIS TIME. WE ORIGINALLY PUT HIM ON 4 L NC AND TRIED TO AROUSE HIM TO TAKE DEEP BREATHS. HIS IV GOT PULLED OUT WITH HIS THRASHING AROUND. GALINA RN GOT ANOTHER IV IN HIS LEFT UPPER ARM. PATIENT WAS STILL NOT SATING WELL SO DR. ZELAYA WHO WAS AT THE BEDSIDE AT THIS TIME HELPING US ORDERED A DUONEB TREATMENT. A NON REBREATHER MASK WAS APPLIED TO THE PATIENT. PATIENT STILL SATING IN THE MID 80'S. PATIENT THEN OPENED HIS EYES , PUPILS DILATED, STARING, RIGID POSTURE, PATIENT NOT BREATHING, UNABLE TO FEEL A PULSE, COMPRESSIONS STARTED. OTHER STAFF AT BEDSIDE, ACLS PROTOCOLS STARTED. SEE CODE DOCUMENTATION. PATIENT WAS BROUGHT TO A PALPABLE RHYTHM, INTUBATED, ARTLINE INSERTED, ON MONITORS AND TRANSFERRED TO ICU AT 1445 BY WILDA Jay RN, AND JULISA HARPER WITH RESPIRATORY THERAPY BAGGING PATIENT.
--- NOTE | 2022-05-06 14:04 | NURSING ---
Return ROSC, CPR stopped, +pulse 1406 Bicarb 50meq IV given, HR 105 1408 HR 140, Amioderone 150mg IV, pt bagged via ETT, labs drawn, attempting artline 1413 12lead EKG at bedside, HR 108, +pulse confirmed, 74% pox, color pale pink 1418 HR 103, pox 83%, CO2 33 1422 HR 104 pox 94%, 125/99, CO2 28 1431 Amioderone 150mg IV, HR 108, pox 95%, 138/110 1432 Amioderone gtt intiated per protocol, Art line inserted by [place] 1435 preparing pt for transport, hr 104, pox 96 1440 HR 101, pox 97% 152/138 1442 pt transported to ICU2
[2022-05-06 14:21] LABS: Absolute Lymphocyte Count 4.68 X10^3/uL (0.83-4.51); Absolute Neutrophil Count 5.7 X10^3/uL (2.0-7.7); Basophil# 0.06 X10^3/uL; Basophil% 0.5 % (0-1); Eosinophil# 0.26 X10^3/uL; Eosinophils% 2.2 % (0-5); Hematocrit 42.8 % (40-54); Hemoglobin 13.2 g/dL (13.0-16.5); Lymphocyte # 4.68 X10^3/ul (0.83-4.51); Lymphocyte % 39.3 % (19-41); Mean Corp Hgb Conc 30.8 g/dL (32-36); Mean Corpuscular Hgb 24.8 pg (27.0-32.0); Mean Corpuscular Volume 80.5 fL (80-94); Mean Platelet Vol. 9.1 fl (6.2-12.0); Monocyte# 0.72 X10^3/uL; NRBC Flagged by Analyzer 0.7 % (0-5); Neutrophil # 5.68 X10^3/uL (2.7-7.7); Neutrophil % 47.7 % (47-70); Platelet Count 243 K/mm3 (150-450); RBC Distribution Width CV 18.2 % (11.6-14.6); RBC Distribution Width SD 52.3 fl (35.1-43.9); Red Blood Count 5.32 M/mm3 (4.6-6.2); White Blood Count 11.9 K/mm3 (4.4-11.0)
--- NOTE | 2022-05-06 14:30 | CPS ---
critical values on abg dr saunders notified
[2022-05-06 14:36] LABS: Base Excess -15 mmol/L (-2 to +2); Bicarbonate 14.6 mmol/L (22-26); Blood Gas Specimen Type ART; PO2 125 mmHG (75-100); SITE R Fem; SO2 97 % (95-99); Total Carbon Dioxide 16 mmol/L; pCO2 48.4 mmHg (35-45); pH 7.09 (7.35-7.45)
[2022-05-06 14:36] LABS: ALB/GLOB Ratio 0.8 RATIO (0.9-2.4); AST(SGOT) 102 U/L (15-37); Alanine Aminotransfer ALT/SGPT 80 U/L (16-61); Albumin, Serum 2.8 g/dL (3.2-5.0); Alkaline Phosphatase 81 U/L (45-117); Anion Gap 14 (5-15); BUN 20 mg/dL (7-18); BUN/Creat Ratio 12.4 RATIO (10-20); Calcium,Total 8.5 mg/dL (8.5-10.1); Chloride 106 mmol/L (98-107); Creatinine, Serum 1.61 mg/dL (0.70-1.30); EST Glomerular Filtration Rate 46 mL/min (>60); Est Glom Filt Rate - Afr Amer 56 mL/min (>60); Estimated Creatinine Clearance 42.77 ml/min; Globulin 3.4 g/dL (2.2-4.2); Glucose 255 mg/dL (74-106); Potassium 3.5 mmol/L (3.5-5.1); Protein, Total 6.2 g/dL (6.4-8.2); Sodium Level 138 mmol/L (136-145); Troponin-I HS 23 pg/mL (3.0-78.0)
[2022-05-06 14:39] LABS: D-Dimer Quantitative (DVT/PE) 2.76 FEU/ug/m (0.27-0.49)
[2022-05-06] MEDS: Propofol 10MG/Ml 1,000 MG/100 ML Bottle 5.9 MG CONT INF (15:00)
--- NOTE | 2022-05-06 15:05 | RAD_ITS ---
STUDY: X-RAY CHEST REASON FOR EXAM: Male, 66 years old. ETT placement TECHNIQUE: Single AP portable view of the chest. COMPARISON: January 05, 2022 x-ray chest FINDINGS: Endotracheal tube is present 5.7 cm above the ciaran. An NG tube is present the tip is in the stomach. Since the prior studies there is a prominent appearance of the interstitial markings. There is thickening of the right minor fissure. There is groundglass opacity within the left lung periphery. There is mild cardiac enlargement. There are persistent multilevel broken sternotomy wires. Normal mediastinum and katiana. Normal visualized pulmonary arteries. There is atherosclerotic tortuosity of the aortic arch and descending thoracic aorta. There are diffuse degenerative changes of the visualized thoracic spine. Normal visualized ribs, clavicles, and shoulders. There is no demonstrated abnormality of the visualized soft tissue structures of the upper abdomen. RAD/Chest 1 View (Portable) IMPRESSION: Mild/moderate cardiomegaly status post sternotomy with multilevel broken sternotomy wires. Endotracheal tube is 5.7 cm above the ciaran slightly high could be advanced 2 cm. NG tube in satisfactory position. Overall pattern of interstitial thickening suspicious for pulmonary edema/CHF without exclusion of atypical infiltrates. Electronically Signed: Hillary Rosales MD at 15:27 EST Reading Location ID and State: [facility] [place] Tel , Service support ,
[2022-05-06] MEDS: Succinylcholine Chloride 200 MG/10 ML SYRINGE 100 MG IV ×2 (15:12→16:45)
--- NOTE | 2022-05-06 15:25 | RAD_ITS ---
STUDY: X-RAY CHEST REASON FOR EXAM: Male, 66 years old. ETT placement TECHNIQUE: Single AP portable view of the chest. COMPARISON: May 06, 2022 3:06 PM FINDINGS: An endotracheal tube is placed 3.2 cm above the ciaran. This is improved since prior study. An N G-tube is present the tip is in the stomach. There is a pattern of increased interstitial markings thickening of the right minor fissure. There is mild cardiac enlargement. There are multilevel broken sternotomy wires. Normal mediastinum and katiana. Normal visualized pulmonary arteries. There is atherosclerotic tortuosity of the aortic arch and descending thoracic aorta. There are diffuse degenerative changes of the visualized thoracic spine. Normal visualized ribs, clavicles, and shoulders. There is no demonstrated abnormality of the visualized soft tissue structures of the upper abdomen. RAD/Chest 1 View (Portable) IMPRESSION: Improved positioning of endotracheal tube. Now in satisfactory position. NG tube in satisfactory position. Findings suspicious for diffuse edema possible CHF and/or potentially multifocal pneumonia. Mild cardiomegaly multifocal broken sternotomy wire centrally. Electronically Signed: Hillary Rosales MD at 15:43 EST Reading Location ID and State: [facility] / [place] Tel , Service support ,
[2022-05-06] MEDS: Furosemide 40 MG/4 ML Vial IV (15:41)
[2022-05-06] MEDS: Amiodarone 360 MG in Dextrose 5% Viaflo Bag 192.8 ML 33.3 MG CONT INF (15:44)
--- NOTE | 2022-05-06 15:54 | CPS ---
critical values on abg dr. gaspar notified
[2022-05-06 16:00] LABS: Allen Test Positive; Base Excess -15 mmol/L (-2 to +2); Bicarbonate 15.7 mmol/L (22-26); Blood Gas Specimen Type ART; FI02 100; Mode AC; O2 Delivery Device Adult Vent; PEEP 13; PO2 53 mmHG (75-100); RR 12; SITE L Radial; SO2 70 % (95-99); Total Carbon Dioxide 18 mmol/L; Vt 450; pCO2 58.9 mmHg (35-45); pH 7.04 (7.35-7.45)
--- NOTE | 2022-05-06 16:40 | RAD_ITS ---
STUDY: X-RAY CHEST REASON FOR EXAM: Male, 66 years old. post CPR TECHNIQUE: Single frontal view of the chest. COMPARISON: May 06, 2022 FINDINGS: Enteric tube in the stomach unchanged. Fractured sternotomy wires noted again. Mild to moderate bilateral interstitial infiltrates unchanged. There is no demonstrated pleural abnormality. Cardiomegaly. Normal mediastinum and katiana. Normal visualized pulmonary arteries. Normal visualized aortic arch and descending thoracic aorta. Normal visualized thoracic spine. Normal visualized ribs, clavicles, and shoulders. There is no demonstrated abnormality of the visualized soft tissue structures of the upper abdomen. RAD/Chest 1 View (Portable) IMPRESSION: Moderate bilateral interstitial infiltrates unchanged Electronically Signed: Eric Caruso MD at 17:16 EST ,
--- NOTE | 2022-05-06 16:43 | PN.SURG_ITS ---
Subjective Subjective Patient became combative, confused shortly after arrival to PACU. Followed by hypoxia and unresponsiveness and ultimately cardiac arrhythmia. Code blue activated, ACLS including defibrillation and rounds of Epi. Spontaneous circulation regained, patient intubated. Remained hypoxic with slow return to normal saturation with bag ventilation. At this point hemodynamically stable. Left radial arterial line placed, labs drawn. After period of time of stability transported to ICU. As patient became more awake he developed further hypoxia and was further sedated and paralyzed. ICU consulted for further recommendations and management. Underlying cause of cardiopulmonary arrest currently unclear. Hypoxia preceded cardiac rhythm changes. Troponin normal, elevated d-dimer however patient on anticoagulation for PAD held only 48 hours for procedure. CXR bilateral ground glass opacification, possible pulm edema. Continue support, resuscitation. Objective Data Objective Data Vital Signs: Vital Signs Temp Pulse Resp BP Pulse Ox O2 Del Method O2 Flow Rate 97.0 F L 83 25 H 174/95 H 74 Mechanical Ventilator 15 05/06/22 11:25 05/06/22 16:10 05/06/22 16:10 05/06/22 16:10 05/06/22 13:50 05/06/22 16:10 05/06/22 13:50 Oxygen Flow Rate (L/min) 15 Oxygen Delivery Method Mechanical Ventilator Weight: 216 lb 0.848 oz Body Mass Index (BMI) 33.8 Intake & Output: Intake and Output for Last 24 Hours 05/04/22 05/05/22 05/06/22 23:59 23:59 23:59 Intake Total 173.5 / 173.5 Balance 173.5 / 173.5 Lab / Micro Data Result Diagrams: 05/06/22 14:14 05/06/22 14:14 Labs: Laboratory Results - last 24 hr 05/06/22 11:15: Hemoglobin A1c 7.7 H 05/06/22 11:15: WBC 9.5, RBC 5.45, Hgb 13.7, Hct 41.9, MCV 76.9 L, MCH 25.1 L, MCHC 32.7, RDW Std Deviation 49.9 H, RDW Coeff of Amaris 18.6 H, Plt Count 333, MPV 8.9 05/06/22 11:15: Sodium 134 L, Potassium 4.8, Chloride 102, Carbon Dioxide 22.0, Anion Gap 10, BUN 21 H, Creatinine 1.49 H, Estim Creat Clear Calc 46.21, Est GFR (MDRD) Af Amer 61, Est GFR (MDRD) Non-Af 50 L, BUN/Creatinine Ratio 14.1, Glucos e 165 H, Calcium 9.6 05/06/22 11:23: POC Glucose 166 H 05/06/22 14:14: D-Dimer Quant (PE/DVT) 2.76 H* 05/06/22 14:14: WBC 11.9 H, RBC 5.32, Hgb 13.2, Hct 42.8, MCV 80.5, MCH 24.8 L, MCHC 30.8 L D, RDW Std Deviation 52.3 H, RDW Coeff of Amaris 18.2 H, Plt Count 243, MPV 9.1, Immature Gran % (Auto) 4.300 H, Neut % (Auto) 47.7, Lymph % (Auto) 39.3, [place] % (Auto) 6.0, Eos % (Auto) 2.2, Baso % (Auto) 0.5, Absolute Neuts (auto) 5.7, Absolute Lymphs (auto) 4.68 H, Nucleated RBC % 0.7 05/06/22 14:14: Sodium 138, Potassium 3.5, Chloride 106, Carbon Dioxide 18.0 L, Anion Gap 14, BUN 20 H, Creatinine 1.61 H, Estim Creat Clear Calc 42.77, Est GFR (MDRD) Af Amer 56 L, Est GFR (MDRD) Non-Af 46 L, BUN/Creatinine Ratio 12.4, Glucose 255 H, Calcium 8.5, Total Bilirubin 0.20, AST 102 H, ALT 80 H, Alkaline Phosphatase 81, Troponin I High Sens 23, Total Protein 6.2 L, Albumin 2.8 L, Globulin 3.4, Albumin/Globulin Ratio 0.8 L ABG Data ABG results: ABG 05/06/22 05/06/22 14:30 15:54 Specimen Type ART ART Sample Site R Fem L Radial pH 7.09 L* 7.04 L* Bicarbonate Actual 14.6 L 15.7 L Total CO2 16 18 Base Excess -15 L -15 L O2 Saturation 97 70 L O2 % 100 ABG pCO2 48.4 H 58.9 H ABG pO2 125 H 53 L Rinku Test Positive Respiration Rate 12 O2 Delivery Device Adult Vent Vent Mode AC Tidal Volume 450 POC PEEP 13 Crit Call To/Read Back Yes Yes Radiography Diagnostic Testing: Radiology Impression Chest X-Ray 05/06/22 15:05 IMPRESSION: Mild/moderate cardiomegaly status post sternotomy with multilevel broken sternotomy wires. Endotracheal tube is 5.7 cm above the ciaran slightly high could be advanced 2 cm. NG tube in satisfactory position. Overall pattern of interstitial thickening suspicious for pulmonary edema/CHF without exclusion of atypical infiltrates. Electronically Signed: Hillary Rosales MD at 15:27 EST , Chest X-Ray 05/06/22 15:25 IMPRESSION: Improved positioning of endotracheal tube. Now in satisfactory position. NG tube in satisfactory position. Findings suspicious for diffuse edema possible CHF and/or potentially multifocal pneumonia. Mild cardiomegaly multifocal broken sternotomy wire centrally. Electronically Signed: Hillary Rosales MD at 15:43 EST ,
--- NOTE | 2022-05-06 16:45 | NURSING ---
500cc Bolus of NS given during Code in the Intensive care unit.
--- NOTE | 2022-05-06 16:51 | PCM.OP.PRO ---
Procedure Report Date of Procedure: 05/06/22 Arterial line placement Date of procedure 05/06/2022 Timeout: Emergent Diagnosis: CPA Right femoral artery was identified with ultrasound. Area cleaned with chlorhexidine. Sterile gloves placed after hands washed. Sterile dressing placed in area reprepped with chlorhexidine. Probe cover placed on ultrasound. Right femoral artery was reidentified with ultrasound and finder needle placed into right femoral artery with pulsatile flow. Using Seldinger technique wire was placed and femoral catheter placed over top with removal of wire. Pulsatile flow continue to be noted. Art line was sutured in an area was recleaned after was placed over end of arterial line. Area preprepped and dressing placed sterilely after art line was hooked up to pressure bag with good arterial waveform. Procedures Hospitalists Procedures: [id number] Insertion Catheter Artery
--- NOTE | 2022-05-06 17:05 | OP.PCM_ITS ---
Report of Operation Date of Procedure: 05/06/22 Pre-Operative Diagnosis: chronic infection, draining sinus of left below knee a mputation Post-Operative Diagnosis: same Surgery/Procedure Performed:: Irrigation/debridement left below knee amputation 5mm x 5mm, bone biopsy, placement Axiofill Description of Surgical Findings:: purulent drainage, sinus tract down to tibia Surgeon: Jhonathan Reyes Type of Anesthesia: General Specimen's removed: bone Estimated Blood Loss (mL): 5 Description of Procedure: HPI: Patient is a 66-year-old male with extensive peripheral vascular disease history of prior left below-knee amputation. He had a chronic draining sinus from the mid aspect of the wound that has intermittently been positive for MRSA. He had plain x-ray which revealed a sinus tract that appeared to extend down to the cut edge of the tibia. He is taken now for debridement irrigation and appl ication of axiofil in hopes of promoting health the healing environment. Plan is also to biopsy the bone and if positive for anaerobic growth plan for longer- term antibiotics. Description of procedure: Upon obtaining form consent and verification. Patient procedure site he was taken to the operating room where he was placed under general anesthesia. He was then positioned prepped and draped in usual sterile fashion a time was performed. A curette was used to sharply debride the sinus tract down to the bone. All nonviable and exudative tissue were removed, and healthy bleeding edge visualized throughout. A rongeur was then used to take bone sample for culture, and debride back flush with the base of the cavity. The wound was then copiously irrigated with vancomycin irrigation and inspected for hemostasis. Axiofil placenta derived topical stem cell adjunct was then placed in the sinus tract and packed down to the base. Adaptic nonadherent dressing was then applied followed by dry gauze. Patient was then awake from anesthesia and taken recovery room with anticipated discharged home.
--- NOTE | 2022-05-06 17:06 | CHAPLAIN ---
Type of Pastoral Visit ___ Initial Visit ___ Follow-up Visit ___ On-call Visit ___ General Patient Visit ___ Spiritual Assessment ___ Family Conference ___ Bereavement ___ Rapid Response _x__ Code Blue ___ Other (describe below) Pastoral Care Referral From ___ Patient ___ Family ___ Nurse ___ Physician ___ Engineering Instructor ___ Perfume Maker _x__ Other (describe below) Sacrament/Intervention _x__ Active listening ___ Anointing ___ Yarsanism ___ Bereavement ___ Communion ___ Sabra exploration ___ _x__ Life review _x__ Prayer ___ Reconciliation ___ Sacrament of Sick _x__ Supportive presence ___ Wedding ___ Other (describe below) Pastoral Comments was in ICU when Code Blue was called for this patient; went into waiting room to escort spouse back to room; gave supportive presence and offer of prayer for patient; was with spouse along with SW to assist in support as team worked on patient and in follow through; pt pulse recovered; assisted in spouse calling her children to come to the hospital; offered water and food as desired; SW notified security of arrival of other family members in about an hour
--- NOTE | 2022-05-06 18:51 | PCM.CODE.SUM ---
Code Blue Report Code Blue Summary Code Blue Summary: A CODE BLUE was called at 1610 today in the ICU, ICU bed 2, patient had been noted to be bradycardic and when his pulse was taken there was no pulse and a CODE BLUE was initiated with chest compressions. I arrived shortly after that time and the patient was administered 2 doses of 1 mg epinephrine approximately 3 to 4 minutes apart, patient's arrived in the ICU and requested that the chest compressions be stopped, she stated that it was patient's wishes not to be on a machine or have chest compressions. The code was stopped at 1615, patient had a pulse at that time and was noted to have spontaneous respirations. Physical Exam Narrative Patient was unresponsive to verbal or tactile stimuli, he did have spontaneous respirations at the cessation of the code, patient had a palpable pulse at that time. Assessment & Plan Assessment/Plan (1) Cardiopulmonary arrest: PLAN: Plan Return of spontaneous respirations and circulation was achieved after brief CPR. Patient's requested CPR be stopped. The reason for the patient's cardiopulmonary arrest was unknown.
--- NOTE | 2022-05-06 19:50 | CM.ED ---
SW Note TEETEE and TEETEE Terrazas responded to code blue. Emotional support provided to patient's . SW called ICU to check on status of patient. Per ICU staff patient had . TEETEE and TEETEE Terrazas met with patient's until patient's family came to be a support with her. SW's provided support in patient's family seeing patient's body. No other issues or needs at this time identified. SW remains available if needs arise. Plan: Emotional support provided Marcia LARSEN
--- NOTE | 2022-05-06 20:09 | PN.HOSP_ITS ---
Subjective Subjective 66-year-old male who presented to the hospital for treatment of a wound on his left BKA. While recovering in PACU he had a CODE BLUE event and he had to be intubated and transferred to the ICU. Both of the hospitalist team and the ICU team were consulted, prior to my evaluation he had another CODE BLUE event in [facility] ICU. He had a few rounds of CPR and had return of spontaneous circulation. He appears to have had an issue with ARDS postoperatively. Repeat chest x-ray does not show pneumothorax but it does show bilateral fluffy infiltrates consistent with ARDS. He was becoming hypoxic which is why the chest x-ray was obtained to evaluate for possible pneumothorax. He has been progressively increasing on his vent settings and his pressures have been getting softer. An A-line was placed and at the time of evaluation his mean arterial pressures were in the mid 60s. Objective Data Objective Data Vital Signs: Vital Signs Temp Pulse Resp BP Pulse Ox O2 Del Method O2 Flow Rate 97.5 F L 104 H 104 H 74/56 L 81 Mechanical Ventilator 15 05/06/22 14:45 05/06/22 17:00 05/06/22 17:00 05/06/22 17:00 05/06/22 17:00 05/06/22 17:00 05/06/22 13:50 FiO2 100 05/06/22 17:00 Oxygen Flow Rate (L/min) 15 Oxygen Delivery Method Mechanical Ventilator Weight: 216 lb 0.848 oz Body Mass Index (BMI) 33.9 Intake & Output: Intake and Output for Last 24 Hours 05/05/22 05/06/22 05/07/22 03:59 03:59 03:59 Intake Total 232.61 / 232.61 Balance 232.61 / 232.61 Lab / Micro Data Result Diagrams: 05/06/22 14:14 05/06/22 14:14 Labs: Laboratory Results - last 24 hr 05/06/22 11:15: Hemoglobin A1c 7.7 H 05/06/22 11:15: WBC 9.5, RBC 5.45, Hgb 13.7, Hct 41.9, MCV 76.9 L, MCH 25.1 L, MCHC 32.7, RDW Std Deviation 49.9 H, RDW Coeff of Amaris 18.6 H, Plt Count 333, MPV 8.9 05/06/22 11:15: Sodium 134 L, Potassium 4.8, Chloride 102, Carbon Dioxide 22.0, Anion Gap 10, BUN 21 H, Creatinine 1.49 H, Estim Creat Clear Calc 46.21, Est GFR (MDRD) Af Amer 61, Est GFR (MDRD) Non-Af 50 L, BUN/Creatinine Ratio 14.1, Glucose 165 H, Calcium 9.6 05/06/22 11:23: POC Glucose 166 H 05/06/22 14:14: D-Dimer Quant (PE/DVT) 2.76 H* 05/06/22 14:14: WBC 11.9 H, RBC 5.32, Hgb 13.2, Hct 42.8, MCV 80.5, MCH 24.8 L, MCHC 30.8 L D, RDW Std Deviation 52.3 H, RDW Coeff of Amaris 18.2 H, Plt Count 243, MPV 9.1, Immature Gran % (Auto) 4.300 H, Neut % (Auto) 47.7, Lymph % (Auto) 39.3, Hardy % (Auto) 6.0, Eos % (Auto) 2.2, Baso % (Auto) 0.5, Absolute Neuts (auto) 5.7, Absolute Lymphs (auto) 4.68 H, Nucleated RBC % 0.7 05/06/22 14:14: Sodium 138, Potassium 3.5, Chloride 106, Carbon Dioxide 18.0 L, Anion Gap 14, BUN 20 H, Creatinine 1.61 H, Estim Creat Clear Calc 42.77, Est GFR (MDRD) Af Amer 56 L, Est GFR (MDRD) Non-Af 46 L, BUN/Creatinine Ratio 12.4, Glucose 255 H, Calcium 8.5, Total Bilirubin 0.20, AST 102 H, ALT 80 H, Alkaline Phosphatase 81, Troponin I High Sens 23, Total Protein 6.2 L, Albumin 2.8 L, Globulin 3.4, Albumin/Globulin Ratio 0.8 L 05/06/22 16:50: COVID-19 (JARRED) Not Detected ABG Data ABG results: ABG 05/06/22 05/06/22 14:30 15:54 Specimen Type ART ART Sample Site R Fem L Radial pH 7.09 L* 7.04 L* Bicarbonate Actual 14.6 L 15.7 L Total CO2 16 18 Base Excess -15 L -15 L O2 Saturation 97 70 L O2 % 100 ABG pCO2 48.4 H 58.9 H ABG pO2 125 H 53 L Rinku Test Positive Respiration Rate 12 O2 Delivery Device Adult Vent Vent Mode AC Tidal Volume 450 POC PEEP 13 Crit Call To/Read Back Yes Yes Radiography Diagnostic Testing: Radiology Impression Chest X-Ray 05/06/22 15:05 IMPRESSION: Mild/moderate cardiomegaly status post sternotomy with multilevel broken sternotomy wires. Endotracheal tube is 5.7 cm above the ciaran slightly high could be advanced 2 cm. NG tube in satisfactory position. Overall pattern of interstitial thickening suspicious for pulmonary edema/CHF without exclusion of atypical infiltrates. Electronically Signed: Hillary Rosales MD at 15:27 EST , Chest X-Ray 05/06/22 15:25 IMPRESSION: Improved positioning of endotracheal tube. Now in satisfactory position. NG tube in satisfactory position. Findings suspicious for diffuse edema possible CHF and/or potentially multifocal pneumonia. Mild cardiomegaly multifocal broken sternotomy wire centrally. Electronically Signed: Hillary Rosales MD at 15:43 EST , Chest X-Ray 05/06/22 16:40 IMPRESSION: Moderate bilateral interstitial infiltrates unchanged Electronically Signed: Eric Caruso MD at 17:16 EST , Physical Exam Const General Appearance: intubated and patient mechanically ventilated HEENT normocephalic Eyes PERRL and conjunctivae normal Neck supple and no JVD Resp normal respiratory effort, no retractions and no use of accessory muscles Auscultation: rhonchi; Negative for crackles, rales or wheezes Cardio regular rate, regular rhythm, S1 normal heart sound, S2 normal heart sound and no murmurs GI soft to palpation and non-distended; Negative for hepatosplenomegaly Extremity no clubbing, cyanosis or edema Skin no rashes or lesions noted Neuro Sensorium / Orientation: sedated on vent Psych Appearance: intubated Assessment & Plan Assessment/Plan (1) Acute respiratory failure with hypoxia: (2) Cardiopulmonary arrest: PLAN: Plan 1. Peripheral arterial occlusive disease status post BKA presenting for wound debridement of that BKA with a cardiac arrest in PACU/acute hypoxic respiratory failure secondary to ARDS ? He has an extensive history with blood clots which has led to his BKA ? PACU cardiac arrest appears to be in part due to acute hypoxic respiratory failure from ARDS. Anesthesia was performed with an LMA and by all accounts surgery was uneventful ? Once he arrived to PACU he had another CODE BLUE event at around 1610, he had CPR performed as well as epinephrine administered and he had return of spontaneous circulation. Family was present at bedside and did not want to go through another code event so they made him DNR CCA at that time. Ventilator settings were increased and a chest x-ray was obtained that did not demonstrate a pneumothorax but did demonstrate ARDS ? A-line was placed however his condition continued to be tenuous and I was notified at 1727 on 05/06/2022 that Mr. Camarena had 2. Hypertension, hyperlipidemia, diabetes, chronic heart failure, coronary artery disease status post CABG, COPD with a history of adenocarcinoma, anxiety, depression, GERD are all chronic medical conditions which complicated his care. Charges/Coding Visit Charges Inpatient E&M: 39869 Subs Hosp L3
--- NOTE | 2022-05-18 16:04 | PCM.DEATH ---
Preliminary Cause of Preliminary Cause of Preliminary Cause of : Hypoxia, cardiac arrest Date of Admission: 05/06/22 Date of : 05/06/22 Principle Diagnosis Left lower extremity non-healing amputation. Atherosclerosis [place] vessel DM Problem List: Active and Suspected Problems (Updated 05/06/22 @ 18:[address] Franc Mosley, DO) Cardiopulmonary arrest (Acute) Acute respiratory failure with hypoxia (Acute) Hospital Course Patient is a 66-year-old male who presented for outpatient procedure debridement of left below-knee amputation nonhealing wound with application of axiofil with plans for discharge after the procedure. In the recovery room he became increasingly agitated and ultimately unresponsive followed by a ventricular arrhythmia. He underwent ACLS with ultimate return of spontaneous circulation. He was hemodynamically stable at this point, intubated, with slow return to normal oxygenation. It was unclear what instigated both the mental status changes and the cardiac event. He was then transported to the intensive care unit where as he awakened from paralysis and sedation he became more difficult to ventilate and his hypoxia returned. Despite maximum ventilatory support patient's hypoxia persisted and in fact worsened. He suffered a second arrhythmia, this time bradycardia down to PEA which again responded after ACLS. At this point at this after discussions with the she was certain he would not want any further heroic efforts undertaken and she stated that if he were to suffer a third cardiac arrest that she would not want any further compressions or medications administered. His hypoxia persisted and a short time later he again became pulseless and ultimately . Time of was 1727 hrs. on 05/06/2022.
== END 2022-05-06 21:15 ==
LOC: SDC 10:22 → AC 10:23 → ICU 14:50
PROVIDERS: Anesthesiology; Internal Medicine Critical Care Medicine; PCP Nurse Practitioner Adult Health; Referring Provider Surgery Trauma Surgery; Visit Provider Surgery Trauma Surgery
PROC: (CPT 36620; principal; 2022-05-06 11:50)
DX: T87.44 Infection of amputation stump, left lower extremity (principal); E11.51 Type 2 diabetes mellitus with diabetic peripheral angiopathy without gangrene; Z89.519 Acquired absence of unspecified leg below knee; J44.9 Chronic obstructive pulmonary disease, unspecified; J96.01 Acute respiratory failure with hypoxia; I46.9 Cardiac arrest, cause unspecified; N18.30 Chronic kidney disease, stage 3 unspecified; I49.9 Cardiac arrhythmia, unspecified; J32.9 Chronic sinusitis, unspecified; B95.62 Methicillin resistant Staphylococcus aureus infection as the cause of diseases classified elsewhere; Z87.891 Personal history of nicotine dependence; E78.5 Hyperlipidemia, unspecified; I25.10 Atherosclerotic heart disease of native coronary artery without angina pectoris; Z95.1 Presence of aortocoronary bypass graft; Z85.118 Personal history of other malignant neoplasm of bronchus and lung; I25.2 Old myocardial infarction; Z86.718 Personal history of other venous thrombosis and embolism; Z98.61 Coronary angioplasty status; I12.9 Hypertensive chronic kidney disease with stage 1 through stage 4 chronic kidney disease, or unspecified chronic kidney disease; Y83.5 Amputation of limb(s) as the cause of abnormal reaction of the patient, or of later complication, without mention of misadventure at the time of the procedure
CPT/HCPCS: 36620; 11044; 31500; 31720; 36600; 71045; 80048; 80053; 82803; 82962; 83036; 84484; 85025; 85027; 85379; 87015; 87070; 87075; 87077; 87102; 87116; 87186; 87205; 87206; 87635; 92950; 93005; 94002; 94640; 94799; J7120; J1940; J2405; J3010; U0003; U0005